=== PATIENT | female | born 1955 | race Caucasian/White ===

== ENCOUNTER 2017-05-25 22:57 | Emergency (ER) | payer MEDICARE, OTHER ==
[~2017-05-25] VITALS: Ht 160 cm; Wt 90.7 kg
[~2017-05-25 22:57] MED LIST: ACEBUTCAFT PO; ALBU3IS INH; ALBU90OI6; ALBU90OI61 INH; ALPR.5; ALPR.5 PO; AMIT50 PO; AMIT75 PO; AMLO5 PO; ASPI325 PO; ATOR80 PO; Aspirin EC81 MG PO; BENTYL10 MG PO; BISA10S PR; BUPR100 PO; BUSP10 PO; Bystolic20 MG PO; CALGLU500; CARI350 PO; CEREFOLIN NAC PO; CHOL10002 PO; CLON1 PO; CODBUTACEC; CODBUTACEC PO; CYCL10 PO; Catapres0.1 MG PO; DIAZ10 PO; DULO30 PO; EPIN.3I; ESTR2 VAG; FEXO180 PO; FLORICET PO; FLUSAL1005; FLUSAL2505 INH; FLUT.05NI; FURO20 PO; HYDACE5; HYDACE5 PO; HYDCHL12.5 PO; HYDCHL25; HYDMOR2 PO; HYDMOR4 PO; HYDMOR8 PO; HYDPAM50 PO; HYDSUL200 PO; LANS30EC; LEVO750 PO; LIDO2L TOP; LISI20 PO; LISI5 PO; LORA.5 PO; LORA1 PO; LORA2 PO; METF500; METF500 PO; METH10 PO; METH5; METO50 PO; METO50ER PO; METR250; MORPHINE PUMP; MULVITB&C PO; Maxalt10 MG; Maxalt10 MG PO; NAPR500 PO; Norco 5-325 Ta1 EACH PO; OMEP20ER PO; OMEP40CA12 PO; ONDA4 PO; ONDA4ODT; ONDA4ODT MM; ONDA8 PO; OPANA ER10 MG PO; OPANA PO; OXYACE5T PO; PANT40; PHENTERMINE PO; PREG200 PO; PROM25 PO; PROM25S PR; PROZAC20 MG PO; Pepcid40 MG PO; Percocet 5-3251 EACH PO; Pravachol40 MG PO; Protonix40 MG PO; Pyridium100 MG PO; QUET200 PO; ROPI1 PO; RXCYCL10 PO; RXONDA4ODT MM; RXPROM25S PR; SENN187 PO; SIMV10 PO; STARLIX; SULFAMETHOXAZOLE PO; SULTRISS PO; TEMA15 PO; TEMA7.5 PO; TRAZ100 PO; TRILYTE; TRIMETHOPRIM PO; VESICARE PO; Ventolin Soln3 ML; Vistaril50 MG PO; Xanax0.5 MG PO; ZELNORM; ZOCOR; Zithromax250 MG PO; Zofran Odt4 MG SL; Zofran4 MG PO; [UNRECOGNIZED DRUG - OTHER]; [UNRECOGNIZED DRUG - OTHER]
[2017-05-25 23:59] LABS: BASOPHILS ABSOLUTE AUTO 0.06 K/mm3 (0.00-0.23); BASOPHILS PERCENT AUTO 1 % (0-2); EOSINOPHILS ABSOLUTE AUTO 0.03 K/mm3 (0.00-0.68); EOSINOPHILS PERCENT AUTO 0 % (0-6); Hemoglobin 13.6 g/dL (11.5-16.0); IMMATURE GRAN ABSOLUTE AUTO 0.02 K/mm3 (0.00-0.10); IMMATURE GRAN PERCENT AUTO 0 % (0-1); LYMPHOCYTES ABSOLUTE AUTO 0.92 K/mm3 (0.84-5.20); LYMPHOCYTES PERCENT AUTO 10 % (21-46); MONOCYTES ABSOLUTE AUTO 0.49 K/mm3 (0.16-1.47); MONOCYTES PERCENT AUTO 5 % (4-13); Mean Corpuscular HGB Conc 31.6 g/dL (31.5-36.5); Mean Corpuscular Volume 89 fL (80-100); Mean Platelet Volume 10.1 fL (9.1-12.4); NEUTROPHILS ABSOLUTE AUTO 7.72 K/mm3 (1.96-9.15); NEUTROPHILS PERCENT AUTO 84 % (41-73); Platelet Count 308 K/mm3 (150-400); RDW Coefficient Variation 14.9 % (11.7-14.2); RDW Standard Deviation 48.4 fL (35.1-46.3); Red Blood Cell Count 4.85 M/mm3 (3.80-5.20); White Blood Cell Count 9.24 K/mm3 (4.00-11.30)
[2017-05-26 00:05] LABS: Alanine Aminotransfer (ALT/SGP 18 U/L (12-78); Albumin, Blood 3.9 g/dL (3.4-5.0); Albumin/Globulin Ratio 1.1 (0.8-1.8); Alk Phos 117 U/L (50-136); Anion Gap 8 mmol/L (6-16); Aspartate Aminotrans (AST/SGOT 15 U/L (12-37); Bilirubin, Total 0.3 mg/dL (0.1-1.0); Blood Urea Nitrogen 10 mg/dL (8-24); Bun/Creatinine Ratio 12.9 (12.0-20.0); CO2, Blood 22 mmol/L (21-32); Calcium, Blood 9.8 mg/dL (8.5-10.1); Chloride, Blood 111 mmol/L (98-108); Creatinine, Blood 0.77 mg/dL (0.40-1.00); Globulin, Blood 3.6 g/dL (2.2-4.0); Glomerular Filtration Rate >60 (60-); Glucose, Blood 141 mg/dL (70-99); Potassium, Blood 3.3 mmol/L (3.5-5.5); Sodium, Blood 141 mmol/L (136-145); Total Protein, Blood 7.5 g/dL (6.4-8.2)
[2017-05-26] MEDS ORDERED: PROM25 PO (06:37)
[2018-01-30] MEDS ORDERED: AMLO10 PO (03:48)
[2018-02-01] MEDS ORDERED: CARV25 PO (13:07)
[2018-03-24] MEDS ORDERED: DICLOFENAC SOD100 G1 TOP (16:01)
[2018-03-24] MEDS ORDERED: OXYC10TA19 PO (16:01)
[2018-03-24] MEDS ORDERED: OXYMORPHONE HCL5 MG PO (16:01)
== END 2017-05-26 00:45 | disposition home or self-care (01) ==
LOC: ER 22:57
PROVIDERS: Emergency Medicine
DX: R51 Headache (principal); R11.2 Nausea with vomiting, unspecified; E11.9 Type 2 diabetes mellitus without complications; J45.909 Unspecified asthma, uncomplicated; Z88.0 Allergy status to penicillin; Z88.8 Allergy status to other drugs, medicaments and biological substances; Z88.1 Allergy status to other antibiotic agents; Z88.5 Allergy status to narcotic agent; Z88.6 Allergy status to analgesic agent; Z91.030 Bee allergy status; Z79.899 Other long term (current) drug therapy; Z79.82 Long term (current) use of aspirin
CPT/HCPCS: 36415; 80053; 83690; 85025; 96361; 96374; 96375; 99284; J1100; J1200; J1630; J2060; J7030

== ENCOUNTER 2017-05-26 04:44 | Emergency (ER) | payer MEDICARE, OTHER ==
[~2017-05-26] VITALS: Ht 160 cm; Wt 90.7 kg
[2017-05-26] MEDS ORDERED: PROM25 PO (06:37)
[2018-01-30] MEDS ORDERED: AMLO10 PO (03:48)
[2018-02-01] MEDS ORDERED: CARV25 PO (13:07)
[2018-03-24] MEDS ORDERED: OXYMORPHONE HCL5 MG PO (16:01)
[2018-03-24] MEDS ORDERED: OXYC10TA19 PO (16:01)
[2018-03-24] MEDS ORDERED: DICLOFENAC SOD100 G1 TOP (16:01)
== END 2017-05-26 06:47 | disposition home or self-care (01) ==
LOC: ER 04:44
DX: R11.2 Nausea with vomiting, unspecified (principal); Z87.891 Personal history of nicotine dependence; E11.43 Type 2 diabetes mellitus with diabetic autonomic (poly)neuropathy; K31.84 Gastroparesis; J45.909 Unspecified asthma, uncomplicated; Z88.0 Allergy status to penicillin; Z88.1 Allergy status to other antibiotic agents; Z91.030 Bee allergy status; Z88.6 Allergy status to analgesic agent; Z88.5 Allergy status to narcotic agent; Z79.899 Other long term (current) drug therapy; Z79.82 Long term (current) use of aspirin
CPT/HCPCS: 99282

== ENCOUNTER 2017-06-06 11:54 | Emergency (ER) | payer MEDICARE, OTHER ==
[~2017-06-06] VITALS: Ht 160 cm; Wt 90.7 kg
[2017-06-06] MEDS ORDERED: Ultram50 MG PO (13:44)
[2018-01-30] MEDS ORDERED: AMLO10 PO (03:48)
[2018-02-01] MEDS ORDERED: CARV25 PO (13:07)
[2018-03-24] MEDS ORDERED: OXYC10TA19 PO (16:01)
[2018-03-24] MEDS ORDERED: DICLOFENAC SOD100 G1 TOP (16:01)
[2018-03-24] MEDS ORDERED: OXYMORPHONE HCL5 MG PO (16:01)
== END 2017-06-06 13:55 | disposition home or self-care (01) ==
LOC: ER 11:54
DX: M25.551 Pain in right hip (principal); Z88.0 Allergy status to penicillin; Z88.8 Allergy status to other drugs, medicaments and biological substances; Z88.5 Allergy status to narcotic agent; Z88.6 Allergy status to analgesic agent; Z91.030 Bee allergy status; Z79.899 Other long term (current) drug therapy; E11.9 Type 2 diabetes mellitus without complications; J45.909 Unspecified asthma, uncomplicated; W19.XXXA Unspecified fall, initial encounter; Z79.82 Long term (current) use of aspirin; Z87.891 Personal history of nicotine dependence
CPT/HCPCS: 73502; 99283

== ENCOUNTER 2017-11-03 11:33 | Emergency (ER) | payer MEDICARE, OTHER ==
[~2017-11-03] VITALS: Ht 160 cm; Wt 90.7 kg
[~2017-11-03 11:33] MED LIST changes: +Ultram50 MG PO
[2017-11-03 13:14] LABS: BASOPHILS ABSOLUTE AUTO 0.06 K/mm3 (0.00-0.23); BASOPHILS PERCENT AUTO 1 % (0-2); EOSINOPHILS ABSOLUTE AUTO 0.02 K/mm3 (0.00-0.68); EOSINOPHILS PERCENT AUTO 0 % (0-6); Hematocrit 41.4 % (33.0-51.0); Hemoglobin 13.3 g/dL (11.5-16.0); IMMATURE GRAN ABSOLUTE AUTO 0.03 K/mm3 (0.00-0.10); IMMATURE GRAN PERCENT AUTO 0 % (0-1); LYMPHOCYTES ABSOLUTE AUTO 1.04 K/mm3 (0.84-5.20); LYMPHOCYTES PERCENT AUTO 10 % (21-46); MONOCYTES ABSOLUTE AUTO 0.71 K/mm3 (0.16-1.47); MONOCYTES PERCENT AUTO 7 % (4-13); Mean Corpuscular HGB 28.9 pg (26.0-34.0); Mean Corpuscular HGB Conc 32.1 g/dL (31.5-36.5); Mean Corpuscular Volume 90 fL (80-100); Mean Platelet Volume 9.8 fL (9.1-12.4); NEUTROPHILS ABSOLUTE AUTO 8.75 K/mm3 (1.96-9.15); NEUTROPHILS PERCENT AUTO 82 % (41-73); Platelet Count 325 K/mm3 (150-400); RDW Coefficient Variation 13.8 % (11.7-14.2); RDW Standard Deviation 45.7 fL (35.1-46.3); Red Blood Cell Count 4.61 M/mm3 (3.80-5.20); White Blood Cell Count 10.61 K/mm3 (4.00-11.30)
[2017-11-03 14:15] LABS: Alanine Aminotransfer (ALT/SGP 20 U/L (12-78); Albumin, Blood 3.8 g/dL (3.4-5.0); Alk Phos 113 U/L (50-136); Anion Gap 10 mmol/L (6-16); Aspartate Aminotrans (AST/SGOT 19 U/L (12-37); Bilirubin, Total 0.4 mg/dL (0.1-1.0); Blood Urea Nitrogen 12 mg/dL (8-24); Bun/Creatinine Ratio 14.8 (12.0-20.0); CO2, Blood 24 mmol/L (21-32); Calcium, Blood 10.2 mg/dL (8.5-10.1); Chloride, Blood 106 mmol/L (98-108); Creatinine, Blood 0.81 mg/dL (0.40-1.00); Globulin, Blood 3.7 g/dL (2.2-4.0); Glomerular Filtration Rate >60 (60-); Glucose, Blood 99 mg/dL (70-99); Potassium, Blood 3.1 mmol/L (3.5-5.5); Sodium, Blood 140 mmol/L (136-145); Total Protein, Blood 7.5 g/dL (6.4-8.2)
[2017-11-03] MEDS ORDERED: Tigan300 MG PO (14:28)
== END 2017-11-03 15:40 | disposition home or self-care (01) ==
LOC: ER 11:33
PROVIDERS: Physician Assistant
DX: R11.2 Nausea with vomiting, unspecified (principal); E11.9 Type 2 diabetes mellitus without complications; J45.909 Unspecified asthma, uncomplicated; Z88.0 Allergy status to penicillin; Z88.8 Allergy status to other drugs, medicaments and biological substances; Z91.030 Bee allergy status; Z88.1 Allergy status to other antibiotic agents; Z88.5 Allergy status to narcotic agent; Z79.899 Other long term (current) drug therapy; Z79.82 Long term (current) use of aspirin; Z87.891 Personal history of nicotine dependence
CPT/HCPCS: 36415; 71046; 80053; 83690; 85025; 96374; 96375; 99284-25; J1200; J1630; J2405

== ENCOUNTER 2017-11-11 03:10 | Observation (INO) | payer MEDICARE, OTHER ==
[~2017-11-11] VITALS: Ht 160 cm; Wt 93.3 kg
[~2017-11-11 03:10] MED LIST changes: +Tigan300 MG PO
[2017-11-11] MEDS ORDERED: OXYMORPHONE HCL5 MG PO (03:35)
[2017-11-11] MEDS ORDERED: ZOLP5 PO (03:36)
[2017-11-11] MEDS ORDERED: TRAM50 PO (03:36)
[2017-11-11 03:43] LABS: Source, Urine Clean Catch
[2017-11-11 03:45] LABS: Bilirubin, Urine Neg (Neg); Blood, Urine 1+ (Neg); Glucose Qualitative, Urine Neg (Neg); Ketones, Urine Neg (Neg); Leukocyte Esterase, Urine 1+ (Neg); Nitrite, Urine Neg (Neg); Protein, Urine 1+ (Neg); Specific Gravity, Urine 1.025 (1.003-1.022); Urobilinogen, Urine NORM (Normal)
[2017-11-11 03:46] LABS: Appearance, Urine Clear (Clear); Color, Urine Yellow (P-Yellow)
[2017-11-11 03:50] LABS: Bacteria Many /hpf; Red Blood Cells, Urine 0-2 /hpf (0-2); Squamous Epithelial Cells Many /hpf (Few)
[2017-11-11 04:21] LABS: BASOPHILS PERCENT AUTO 1 % (0-2); EOSINOPHILS ABSOLUTE AUTO 0.26 K/mm3 (0.00-0.68); EOSINOPHILS PERCENT AUTO 2 % (0-6); Hematocrit 34.9 % (33.0-51.0); Hemoglobin 11.2 g/dL (11.5-16.0); IMMATURE GRAN ABSOLUTE AUTO 0.05 K/mm3 (0.00-0.10); IMMATURE GRAN PERCENT AUTO 1 % (0-1); LYMPHOCYTES ABSOLUTE AUTO 2.22 K/mm3 (0.84-5.20); LYMPHOCYTES PERCENT AUTO 21 % (21-46); MONOCYTES PERCENT AUTO 11 % (4-13); Mean Corpuscular HGB 28.9 pg (26.0-34.0); Mean Corpuscular HGB Conc 32.1 g/dL (31.5-36.5); Mean Corpuscular Volume 90 fL (80-100); NEUTROPHILS ABSOLUTE AUTO 6.81 K/mm3 (1.96-9.15); NEUTROPHILS PERCENT AUTO 64 % (41-73); RDW Coefficient Variation 14.6 % (11.7-14.2); RDW Standard Deviation 47.8 fL (35.1-46.3); Red Blood Cell Count 3.87 M/mm3 (3.80-5.20); White Blood Cell Count 10.64 K/mm3 (4.00-11.30)
[2017-11-11 04:23] LABS: Mean Platelet Volume 11.2 fL (9.1-12.4); Platelet Count 201 K/mm3 (150-400)
[2017-11-11 04:37] LABS: Alanine Aminotransfer (ALT/SGP 18 U/L (12-78); Albumin, Blood 3.1 g/dL (3.4-5.0); Albumin/Globulin Ratio 0.9 (0.8-1.8); Alk Phos 110 U/L (50-136); Anion Gap 8 mmol/L (6-16); Aspartate Aminotrans (AST/SGOT 19 U/L (12-37); Bilirubin, Total 0.2 mg/dL (0.1-1.0); Blood Urea Nitrogen 17 mg/dL (8-24); Bun/Creatinine Ratio 20.6 (12.0-20.0); CO2, Blood 27 mmol/L (21-32); Calcium, Blood 9.4 mg/dL (8.5-10.1); Chloride, Blood 102 mmol/L (98-108); Creatinine, Blood 0.83 mg/dL (0.40-1.00); Globulin, Blood 3.4 g/dL (2.2-4.0); Glomerular Filtration Rate >60 (60-); Glucose, Blood 87 mg/dL (70-99); Potassium, Blood 3.5 mmol/L (3.5-5.5); Sodium, Blood 137 mmol/L (136-145); Total Protein, Blood 6.5 g/dL (6.4-8.2); Troponin I 0.188 ng/mL (0.000-0.040)
[2017-11-11] MEDS ORDERED: OXYMORPHONE HCL10 MG PO (07:37)
[2017-11-11] MEDS ORDERED: ROPI2 PO (07:38)
[2017-11-11 12:59] LABS: Troponin I 0.164 ng/mL (0.000-0.040)
[2017-11-11 20:21] LABS: Troponin I 0.129 ng/mL (0.000-0.040)
[2017-11-12 06:03] LABS: Hematocrit 36.4 % (33.0-51.0); Hemoglobin 11.3 g/dL (11.5-16.0); Mean Corpuscular Volume 90 fL (80-100); Mean Platelet Volume 10.2 fL (9.1-12.4); Platelet Count 266 K/mm3 (150-400); RDW Coefficient Variation 14.8 % (11.7-14.2); RDW Standard Deviation 48.9 fL (35.1-46.3); Red Blood Cell Count 4.03 M/mm3 (3.80-5.20); White Blood Cell Count 6.29 K/mm3 (4.00-11.30)
[2017-11-12 06:20] LABS: Alanine Aminotransfer (ALT/SGP 18 U/L (12-78); Albumin, Blood 2.8 g/dL (3.4-5.0); Albumin/Globulin Ratio 0.9 (0.8-1.8); Alk Phos 88 U/L (50-136); Anion Gap 7 mmol/L (6-16); Aspartate Aminotrans (AST/SGOT 17 U/L (12-37); Bilirubin, Total 0.2 mg/dL (0.1-1.0); Blood Urea Nitrogen 9 mg/dL (8-24); CO2, Blood 28 mmol/L (21-32); Calcium, Blood 9.5 mg/dL (8.5-10.1); Chloride, Blood 111 mmol/L (98-108); Creatinine, Blood 0.75 mg/dL (0.40-1.00); Globulin, Blood 3.1 g/dL (2.2-4.0); Glomerular Filtration Rate >60 (60-); Glucose, Blood 87 mg/dL (70-99); Potassium, Blood 4.2 mmol/L (3.5-5.5); Sodium, Blood 146 mmol/L (136-145); Total Protein, Blood 5.9 g/dL (6.4-8.2)
[2017-11-12] MEDS ORDERED: DOCU100 PO (18:23)
[2017-11-12] MEDS ORDERED: PANT40 PO (18:24)
[2017-11-12] MEDS ORDERED: MIRALAX17 GM PO (18:24)
== END 2017-11-12 18:50 | disposition home or self-care (01) ==
LOC: ER 03:10 → PCU 03:11 → ER 05:44 → PCU 06:55
PROVIDERS: Emergency Medicine; Internal Medicine
DX: K59.01 Slow transit constipation (principal); I42.1 Obstructive hypertrophic cardiomyopathy; F11.20 Opioid dependence, uncomplicated; K51.90 Ulcerative colitis, unspecified, without complications; R07.89 Other chest pain; I10 Essential (primary) hypertension; R10.13 Epigastric pain; K21.9 Gastro-esophageal reflux disease without esophagitis; R79.89 Other specified abnormal findings of blood chemistry; E11.65 Type 2 diabetes mellitus with hyperglycemia; J44.9 Chronic obstructive pulmonary disease, unspecified; I25.10 Atherosclerotic heart disease of native coronary artery without angina pectoris; E78.5 Hyperlipidemia, unspecified; G89.4 Chronic pain syndrome; I73.9 Peripheral vascular disease, unspecified; Z96.89 Presence of other specified functional implants; F41.8 Other specified anxiety disorders; G47.33 Obstructive sleep apnea (adult) (pediatric); Z91.19 Patient's noncompliance with other medical treatment and regimen; F32.9 Major depressive disorder, single episode, unspecified; E66.9 Obesity, unspecified; Z68.34 Body mass index [BMI] 34.0-34.9, adult; I25.2 Old myocardial infarction; Z87.11 Personal history of peptic ulcer disease; Z79.899 Other long term (current) drug therapy; Z79.82 Long term (current) use of aspirin
CPT/HCPCS: 36415; 71046; 74176; 80053; 81001; 82550; 82947; 83690; 84484; 85025; 85027; 93005; 93010; 93306; 96372; 96374; 96375; 96376; 99285-25; G0378; J1650; J2060; J2405; J3010; J7030

== ENCOUNTER → 2018-04-16 | Outpatient (CLI) | payer MEDICARE, OTHER ==
[~2018-04-16] MED LIST changes: +AMLO10 PO; +CARV25 PO; +DICLOFENAC SOD100 G1 TOP; +DOCU100 PO; +MIRALAX17 GM PO; +OXYC10TA19 PO; +OXYMORPHONE HCL10 MG PO; +OXYMORPHONE HCL5 MG PO; +PANT40 PO; +ROPI2 PO; +TRAM50 PO; +ZOLP5 PO
[2018-04-16 18:17] LABS: Bilirubin, Urine Neg (Neg); Blood, Urine Neg (Neg); Color, Urine Yellow (P-Yellow); Glucose Qualitative, Urine Neg (Neg); Ketones, Urine Neg (Neg); Leukocyte Esterase, Urine Neg (Neg); Nitrite, Urine Neg (Neg); Protein, Urine 1+ (Neg); Urobilinogen, Urine NORM (Normal)
[2018-04-16 18:35] LABS: Appearance, Urine Hazy (Clear); Bacteria Many /hpf; Mucus Light (0-Heavy); Red Blood Cells, Urine 0-2 /hpf (0-2); Squamous Epithelial Cells Few /hpf (Few); White Blood Cells, Urine 0-2 /hpf (0-5)
== END | disposition home or self-care (01) ==
LOC: LAB SHORT 14:35 → LAB 14:35
PROVIDERS: Internal Medicine Nephrology
DX: N39.0 Urinary tract infection, site not specified (principal)
CPT/HCPCS: 81001; 87086

== ENCOUNTER 2018-07-01 16:27 | Emergency (ER) | payer MEDICARE, OTHER ==
[~2018-07-01] VITALS: Ht 154.9 cm; Wt 86.2 kg
[2018-07-01 16:56] LABS: BASOPHILS ABSOLUTE AUTO 0.08 K/mm3 (0.00-0.23); BASOPHILS PERCENT AUTO 1 % (0-2); EOSINOPHILS ABSOLUTE AUTO 0.17 K/mm3 (0.00-0.68); EOSINOPHILS PERCENT AUTO 3 % (0-6); Hematocrit 36.6 % (33.0-51.0); IMMATURE GRAN ABSOLUTE AUTO 0.01 K/mm3 (0.00-0.10); IMMATURE GRAN PERCENT AUTO 0 % (0-1); LYMPHOCYTES ABSOLUTE AUTO 2.23 K/mm3 (0.84-5.20); LYMPHOCYTES PERCENT AUTO 34 % (21-46); MONOCYTES ABSOLUTE AUTO 0.86 K/mm3 (0.16-1.47); MONOCYTES PERCENT AUTO 13 % (4-13); Mean Corpuscular HGB 27.8 pg (26.0-34.0); Mean Corpuscular HGB Conc 30.1 g/dL (31.5-36.5); Mean Corpuscular Volume 93 fL (80-100); Mean Platelet Volume 10.7 fL (9.1-12.4); NEUTROPHILS ABSOLUTE AUTO 3.28 K/mm3 (1.96-9.15); NEUTROPHILS PERCENT AUTO 49 % (41-73); Platelet Count 236 K/mm3 (150-400); RDW Coefficient Variation 14.8 % (11.7-14.2); Red Blood Cell Count 3.95 M/mm3 (3.80-5.20); White Blood Cell Count 6.63 K/mm3 (4.00-11.30)
[2018-07-01 17:21] LABS: Alanine Aminotransfer (ALT/SGP 17 U/L (12-78); Albumin, Blood 3.2 g/dL (3.4-5.0); Albumin/Globulin Ratio 1.1 (0.8-1.8); Alk Phos 93 U/L (50-136); Anion Gap 2 mmol/L (6-16); Aspartate Aminotrans (AST/SGOT 16 U/L (12-37); Bilirubin, Total 0.3 mg/dL (0.1-1.0); Blood Urea Nitrogen 24 mg/dL (8-24); Bun/Creatinine Ratio 25.6 (12.0-20.0); CO2, Blood 28 mmol/L (21-32); Calcium, Blood 9.2 mg/dL (8.5-10.1); Chloride, Blood 111 mmol/L (98-108); Creatinine, Blood 0.94 mg/dL (0.40-1.00); Globulin, Blood 2.8 g/dL (2.2-4.0); Glomerular Filtration Rate >60 (60-); Glucose, Blood 90 mg/dL (70-99); Potassium, Blood 4.3 mmol/L (3.5-5.5); Sodium, Blood 141 mmol/L (136-145)
[2018-07-01 17:26] LABS: Ethanol (Alcohol), Blood, Med <3 mg/dL
[2018-07-01] MEDS ORDERED: NARCAN4 MG (21:19)
== END 2018-07-01 22:02 | disposition home or self-care (01) ==
LOC: ER 16:27
PROVIDERS: Emergency Medicine
DX: R40.4 Transient alteration of awareness (principal); F11.90 Opioid use, unspecified, uncomplicated; I10 Essential (primary) hypertension; F41.9 Anxiety disorder, unspecified; E11.9 Type 2 diabetes mellitus without complications; J45.909 Unspecified asthma, uncomplicated; Z88.0 Allergy status to penicillin; Z88.8 Allergy status to other drugs, medicaments and biological substances; Z88.6 Allergy status to analgesic agent; Z88.5 Allergy status to narcotic agent; Z88.1 Allergy status to other antibiotic agents; Z91.030 Bee allergy status; Z79.899 Other long term (current) drug therapy; Z79.82 Long term (current) use of aspirin
CPT/HCPCS: 80053; 85025; 93005; 93010; 99285-25; G0480

== ENCOUNTER 2018-10-10 09:01 | Day surgery (SDC) | payer MEDICARE, OTHER ==
[~2018-10-10 09:01] MED LIST changes: -CARV25 PO; -DULO30 PO; -HYDSUL200 PO; +NARCAN4 MG; -OXYC10TA19 PO; -PREG200 PO
[2018-10-10 10:56] LABS: Source, Urine Clean Catch
[2018-10-10 12:12] LABS: Appearance, Urine Clear (Clear); Bilirubin, Urine Neg (Neg); Blood, Urine Neg (Neg); Color, Urine Yellow (P-Yellow); Glucose Qualitative, Urine Neg (Neg); Ketones, Urine Neg (Neg); Leukocyte Esterase, Urine 1+ (Neg); Nitrite, Urine Neg (Neg); Protein, Urine Neg (Neg); Specific Gravity, Urine 1.025 (1.003-1.022); Urobilinogen, Urine NORM (Normal)
[2018-10-10 12:40] LABS: Bacteria Rare /hpf; Calcium Oxalate Crystals Mod /hpf; Red Blood Cells, Urine 0-2 /hpf (0-2); Squamous Epithelial Cells Few /hpf (Few)
[2019-02-02] MEDS ORDERED: Ropinirole HCl1 MG PO (10:47)
[2019-02-02] MEDS ORDERED: OXYB5ER PO (10:48)
[2019-02-02] MEDS ORDERED: Hydrocodone-Ap1 EA20 PO (10:48)
[2019-02-02] MEDS ORDERED: ESTRADIOL PO (10:49)
[2019-02-02] MEDS ORDERED: VITAMIN D31000 UNI2 PO (10:49)
[2019-02-02] MEDS ORDERED: Catapres-Tts 11 EACH PO (10:50)
[2019-02-02] MEDS ORDERED: OXYMORPHONE HCL10 MG PO (10:50)
[2019-02-02] MEDS ORDERED: BUSP10 PO (10:53)
[2019-02-02] MEDS ORDERED: DILT120ERA PO (13:20)
== END 2018-10-10 22:55 | disposition home or self-care (01) ==
LOC: RAD 09:01
PROVIDERS: Obstetrics & Gynecology Female Pelvic Medicine and Reconstructive Surgery
DX: M24.851 Other specific joint derangements of right hip, not elsewhere classified (principal); N39.0 Urinary tract infection, site not specified; I10 Essential (primary) hypertension; E78.5 Hyperlipidemia, unspecified; Z88.0 Allergy status to penicillin; Z88.6 Allergy status to analgesic agent; Z88.8 Allergy status to other drugs, medicaments and biological substances; Z87.891 Personal history of nicotine dependence
CPT/HCPCS: 20610; 73722; 77002; 81001; 87077; 87086; 87186; A9577; Q9967

== ENCOUNTER 2018-11-04 20:42 | Emergency (ER) | payer MEDICARE, OTHER ==
[~2018-11-04] VITALS: Ht 160 cm; Wt 90.7 kg
[2018-11-04] MEDS ORDERED: HYDHCL25 PO (21:10)
[2019-02-02] MEDS ORDERED: Ropinirole HCl1 MG PO (10:47)
[2019-02-02] MEDS ORDERED: OXYB5ER PO (10:48)
[2019-02-02] MEDS ORDERED: Hydrocodone-Ap1 EA20 PO (10:48)
[2019-02-02] MEDS ORDERED: ESTRADIOL PO (10:49)
[2019-02-02] MEDS ORDERED: VITAMIN D31000 UNI2 PO (10:49)
[2019-02-02] MEDS ORDERED: Catapres-Tts 11 EACH PO (10:50)
[2019-02-02] MEDS ORDERED: OXYMORPHONE HCL10 MG PO (10:50)
[2019-02-02] MEDS ORDERED: BUSP10 PO (10:53)
[2019-02-02] MEDS ORDERED: DILT120ERA PO (13:20)
== END 2018-11-04 21:27 | disposition home or self-care (01) ==
LOC: ER 20:42
DX: G89.29 Other chronic pain (principal); M25.551 Pain in right hip; Z76.5 Malingerer [conscious simulation]; Z88.0 Allergy status to penicillin; Z88.8 Allergy status to other drugs, medicaments and biological substances; Z88.1 Allergy status to other antibiotic agents; Z88.5 Allergy status to narcotic agent; Z91.030 Bee allergy status; Z79.899 Other long term (current) drug therapy; Z79.82 Long term (current) use of aspirin; E11.43 Type 2 diabetes mellitus with diabetic autonomic (poly)neuropathy; K31.84 Gastroparesis; I10 Essential (primary) hypertension; Z87.891 Personal history of nicotine dependence
CPT/HCPCS: 99283

== ENCOUNTER 2018-12-19 13:17 | Observation (INO) | payer MEDICARE, OTHER ==
[~2018-12-19] VITALS: Ht 160 cm; Wt 87.7 kg
[~2018-12-19 13:17] MED LIST changes: +HYDHCL25 PO
[2018-12-19 14:09] LABS: BASOPHILS ABSOLUTE AUTO 0.08 K/mm3 (0.00-0.23); BASOPHILS PERCENT AUTO 1 % (0-2); EOSINOPHILS ABSOLUTE AUTO 0.02 K/mm3 (0.00-0.68); EOSINOPHILS PERCENT AUTO 0 % (0-6); Hematocrit 52.7 % (33.0-51.0); Hemoglobin 16.1 g/dL (11.5-16.0); IMMATURE GRAN ABSOLUTE AUTO 0.04 K/mm3 (0.00-0.10); IMMATURE GRAN PERCENT AUTO 0 % (0-1); LYMPHOCYTES ABSOLUTE AUTO 1.36 K/mm3 (0.84-5.20); LYMPHOCYTES PERCENT AUTO 13 % (21-46); MONOCYTES ABSOLUTE AUTO 0.73 K/mm3 (0.16-1.47); MONOCYTES PERCENT AUTO 7 % (4-13); Mean Corpuscular HGB 28.8 pg (26.0-34.0); Mean Corpuscular HGB Conc 30.6 g/dL (31.5-36.5); Mean Corpuscular Volume 94 fL (80-100); Mean Platelet Volume 12.7 fL (9.1-12.4); NEUTROPHILS ABSOLUTE AUTO 8.14 K/mm3 (1.96-9.15); NEUTROPHILS PERCENT AUTO 79 % (41-73); Platelet Count 206 K/mm3 (150-400); RDW Coefficient Variation 17.3 % (11.7-14.2); RDW Standard Deviation 59.2 fL (35.1-46.3); White Blood Cell Count 10.37 K/mm3 (4.00-11.30)
[2018-12-19 14:30] LABS: Alanine Aminotransfer (ALT/SGP 23 U/L (12-78); Albumin, Blood 3.8 g/dL (3.4-5.0); Alk Phos 124 U/L (50-136); Anion Gap 3 mmol/L (6-16); Aspartate Aminotrans (AST/SGOT 19 U/L (12-37); Bilirubin, Total 0.4 mg/dL (0.1-1.0); Blood Urea Nitrogen 22 mg/dL (8-24); Bun/Creatinine Ratio 34.4 (12.0-20.0); CO2, Blood 26 mmol/L (21-32); Calcium, Blood 10.7 mg/dL (8.5-10.1); Chloride, Blood 109 mmol/L (98-108); Creatinine, Blood 0.64 mg/dL (0.40-1.00); Globulin, Blood 3.7 g/dL (2.2-4.0); Glomerular Filtration Rate >60 (60-); Glucose, Blood 115 mg/dL (70-99); Potassium, Blood 3.9 mmol/L (3.5-5.5); Sodium, Blood 138 mmol/L (136-145); Total Protein, Blood 7.5 g/dL (6.4-8.2); Troponin I 0.056 ng/mL (0.000-0.040)
[2018-12-19] MEDS ORDERED: CLON.1 PO (16:28)
[2018-12-19] MEDS ORDERED: OXYMORPHONE HCL5 MG PO (16:30)
[2018-12-19] MEDS ORDERED: RIZATRIPTAN10 M1 PO (16:32)
[2018-12-19] MEDS ORDERED: DULO60 PO (16:34)
[2018-12-19] MEDS ORDERED: CARV25 PO (16:34)
[2018-12-19] MEDS ORDERED: PREG75 PO (16:46)
[2018-12-19] MEDS ORDERED: HYDSUL200 PO (16:46)
[2018-12-19] MEDS ORDERED: OXYC10TA19 PO (16:47)
[2018-12-19] MEDS ORDERED: Cyclobenzaprine5 MG PO (17:17)
[2018-12-19] MEDS ORDERED: HYDHCL25 PO (17:18)
[2018-12-20 05:14] LABS: Anion Gap 5 mmol/L (6-16); Blood Urea Nitrogen 21 mg/dL (8-24); Bun/Creatinine Ratio 27.5 (12.0-20.0); CO2, Blood 30 mmol/L (21-32); Calcium, Blood 10.2 mg/dL (8.5-10.1); Chloride, Blood 109 mmol/L (98-108); Creatinine, Blood 0.76 mg/dL (0.40-1.00); Glomerular Filtration Rate >60 (60-); Glucose, Blood 102 mg/dL (70-99); Potassium, Blood 3.8 mmol/L (3.5-5.5); Sodium, Blood 144 mmol/L (136-145)
--- NOTE | 2018-12-20 06:19 | NUR ---
SHIFT SUMMARY: CHRISTINA ARRIVED VIA GURNEY TO THE FLOOR AT THE BEGINNING OF THE SHIFT. SHE WAS ADMITTED FOR NAUSEA AND HTN URGENCY. SHE TRANSFERRED SELF TO THE BED INDEPENDTANLY. BP ON ARRIVAL TO THE FLOOR WAS 197/132. SHE COMPLAINED OF A HEADACHE AND ABDOMINAL PAIN. RECHECKS OF HER BLOOD PRESSURE AFTER ADMINISTERING MEDS PER EMAR ONLY BROUGHT IT DOWN TO 171/119. STILL WAITED FOR IT TO COME DOWN FURTHER PAIN MEDS WERE ALSO GIVEN. RECHECK OF HER BP WAS 116/74. SHE WAS ABLE TO STATE SHE FELT BETTER AND PAIN WAS BETTER MANAGED. SHE SLEPT WELL THROUGOUT THE NIGHT AND WOKE WHEN NEEDED. CALL LIGHT REMAINED WITH IN REACH AND USED APPROPRIATLY. WILL REPORT TO DAY SHIFT RN.
--- NOTE | 2018-12-20 09:11 | NUR ---
Physician notified Dr. Garza notified of patient's am BP (110/49) and AR (66). Blood pressure meds held for now. Physician will follow-up.
--- NOTE | 2018-12-20 10:58 | NUR ---
Per Clarissa, media monitor, Tele reads Sinus 70
--- NOTE | 2018-12-20 11:57 | NUR ---
Physician notified RE: patient's wishes to change CODE status. Dr. Garza changed code status to FULL code. DNR band removed.
--- NOTE | 2018-12-20 12:34 | NUR ---
Physician notified RE: noon blood sugar of 79. 120ml apple juice given and blood sugar rechecked, found to be 81. Another 120ml apple juice given and blood sugar rechecked, found to be 105. Patient alert resting in bed.
--- NOTE | 2018-12-20 13:32 | NUR ---
Echocardiogram completed.
--- NOTE | 2018-12-20 17:21 | NUR ---
Shift Summary A/O x 4, very conversational, pleasant, and cooperative with care. Independent in room and able to make needs known. Medicated for hip pain x 1 per EMAR. No c/o N/V. Tele in place @ 70. Blood sugars have been between 79-105 this shift. Patient had stress test completed this afternoon. VSS.
[2018-12-21 04:41] LABS: BASOPHILS ABSOLUTE AUTO 0.07 K/mm3 (0.00-0.23); BASOPHILS PERCENT AUTO 1 % (0-2); EOSINOPHILS ABSOLUTE AUTO 0.13 K/mm3 (0.00-0.68); EOSINOPHILS PERCENT AUTO 2 % (0-6); Hematocrit 39.9 % (33.0-51.0); Hemoglobin 12.4 g/dL (11.5-16.0); IMMATURE GRAN ABSOLUTE AUTO 0.02 K/mm3 (0.00-0.10); IMMATURE GRAN PERCENT AUTO 0 % (0-1); LYMPHOCYTES ABSOLUTE AUTO 2.35 K/mm3 (0.84-5.20); LYMPHOCYTES PERCENT AUTO 35 % (21-46); MONOCYTES ABSOLUTE AUTO 0.73 K/mm3 (0.16-1.47); MONOCYTES PERCENT AUTO 11 % (4-13); Mean Corpuscular HGB 27.8 pg (26.0-34.0); Mean Corpuscular HGB Conc 31.1 g/dL (31.5-36.5); Mean Corpuscular Volume 90 fL (80-100); Mean Platelet Volume 10.5 fL (9.1-12.4); NEUTROPHILS ABSOLUTE AUTO 3.45 K/mm3 (1.96-9.15); NEUTROPHILS PERCENT AUTO 51 % (41-73); Platelet Count 243 K/mm3 (150-400); RDW Standard Deviation 55.8 fL (35.1-46.3); Red Blood Cell Count 4.46 M/mm3 (3.80-5.20); White Blood Cell Count 6.75 K/mm3 (4.00-11.30)
[2018-12-21 04:56] LABS: Anion Gap 5 mmol/L (6-16); Blood Urea Nitrogen 24 mg/dL (8-24); Bun/Creatinine Ratio 31.3 (12.0-20.0); CO2, Blood 30 mmol/L (21-32); Calcium, Blood 9.7 mg/dL (8.5-10.1); Chloride, Blood 107 mmol/L (98-108); Creatinine, Blood 0.77 mg/dL (0.40-1.00); Glomerular Filtration Rate >60 (60-); Glucose, Blood 93 mg/dL (70-99); Potassium, Blood 4.1 mmol/L (3.5-5.5); Sodium, Blood 142 mmol/L (136-145)
--- NOTE | 2018-12-21 05:49 | NUR ---
SHIFT SUMMARY PT SLEPT FAIR DURING NIGHT, MEDICATED X 2 FOR PAIN. ALSO HAS AQUA K PAD TO RIGHT HIP FOR COMFORT. PT STATES SHE THINKS SHE HAS A BLOOD CLOT IN LUNG AND IS INQUIRING ABOUT A CT SCAN THAT WAS MENTIONED TO HER YESTERDAY. WILL CONTINUE TO MONITOR.
--- NOTE | 2018-12-21 11:05 | NUR ---
Dr. Partidatrate notified on whether to hold Coreg based on BP 124/86 HR 62. Received orders to give Coreg. Administered per EMAR.
--- NOTE | 2018-12-21 17:00 | NUR ---
Shift Summary A/Ox4. No acute changes this shift. Medicated for pain x 4 ranging aroung 7-9's and down to 4-5's. Medicated once for anxiety. Cooperative and pleasant t/o shift, able to make needs known. Tele: SR 62. VSS. Blood sugars have been stable. Patient has had one small BM 12/20/18 but has not had any more since given stimulant laxative around noon today. Will continue to monitor and report to oncoming RN.
--- NOTE | 2018-12-21 17:10 | NUR ---
Add-on Shift Summary Patient scheduled to have angio in the morning 12/22/18. Patient to be NPO after midnight.
[2018-12-22 04:43] LABS: BASOPHILS ABSOLUTE AUTO 0.09 K/mm3 (0.00-0.23); BASOPHILS PERCENT AUTO 1 % (0-2); EOSINOPHILS ABSOLUTE AUTO 0.12 K/mm3 (0.00-0.68); EOSINOPHILS PERCENT AUTO 2 % (0-6); Hematocrit 42.7 % (33.0-51.0); IMMATURE GRAN ABSOLUTE AUTO 0.02 K/mm3 (0.00-0.10); IMMATURE GRAN PERCENT AUTO 0 % (0-1); LYMPHOCYTES ABSOLUTE AUTO 2.25 K/mm3 (0.84-5.20); LYMPHOCYTES PERCENT AUTO 31 % (21-46); MONOCYTES ABSOLUTE AUTO 0.78 K/mm3 (0.16-1.47); MONOCYTES PERCENT AUTO 11 % (4-13); Mean Corpuscular HGB Conc 30.4 g/dL (31.5-36.5); Mean Corpuscular Volume 92 fL (80-100); Mean Platelet Volume 10.6 fL (9.1-12.4); NEUTROPHILS ABSOLUTE AUTO 3.93 K/mm3 (1.96-9.15); NEUTROPHILS PERCENT AUTO 55 % (41-73); Platelet Count 225 K/mm3 (150-400); RDW Coefficient Variation 16.9 % (11.7-14.2); Red Blood Cell Count 4.65 M/mm3 (3.80-5.20); White Blood Cell Count 7.19 K/mm3 (4.00-11.30)
[2018-12-22 05:23] LABS: Anion Gap 5 mmol/L (6-16); Blood Urea Nitrogen 25 mg/dL (8-24); Bun/Creatinine Ratio 37.7 (12.0-20.0); CHOL/HDL RATIO 3.4; CO2, Blood 28 mmol/L (21-32); Calcium, Blood 9.8 mg/dL (8.5-10.1); Chloride, Blood 108 mmol/L (98-108); Cholesterol 166 mg/dL (50-200); Creatinine, Blood 0.66 mg/dL (0.40-1.00); Glomerular Filtration Rate >60 (60-); Glucose, Blood 83 mg/dL (70-99); HDL Cholesterol 49 mg/dL (>39); Low Density Lipoprotein Chol 99 mg/dL (0-110); Potassium, Blood 4.6 mmol/L (3.5-5.5); Sodium, Blood 141 mmol/L (136-145); Triglycerides 91 mg/dL (30-160); Very Low Density Lipoprot Chol 18 mg/dL (6-32)
--- NOTE | 2018-12-22 06:20 | NUR ---
SHIFT SUMMARY PT A/O INDEPENDENT IN ROOM. C/O PAIN IN HIP AND MEDICATED PER EMAR. SHE WAS ABLE TO SLEEP T/O NIGHT. NPO AT MIDNIGHT. SOME ANXIETY ABOUT HER UPCOMING ANGIOGRAM. CALL LIGHT IN REACH.
--- NOTE | 2018-12-22 07:42 | NUR ---
Physician notified This RN inquired on whether to hold or give PO meds this morning. Per Dr. Garza, patient to receive PO meds.
--- NOTE | 2018-12-22 09:03 | NUR ---
Patient transferred to Manager Ui @ 0903 via w/c. Belongings were bagged up and sent with patient to cardiac cath lab technologist. Meds given per EMAR.
[2018-12-22 09:29] LABS: International Normalized Ratio 0.96; Prothrombin Time Results 10.2 Sec (9.7-11.5)
--- NOTE | 2018-12-22 10:25 | NUR ---
PT ARRIVED WITH RIGHT RADIAL TR BAND WITH WRIST BOARD TO RECOVERY ROOM. RIGHT RADIAL TR BAND SITE SOFT NON-TENDER WITH NO HEMATOMA AND NO PULSATILE BLEEDING. CALL LIGHT IN REACH.
--- NOTE | 2018-12-22 10:52 | NUR ---
PT BEING TRANSFERED TO U 2.
--- NOTE | 2018-12-22 11:33 | NUR ---
ASSUMED CARE PT TRANSFERRED TO UNIT FROM BOAT RIDE OPERATOR. PT HAD AN ANGIOGRAM WITH A RIGHT RADIAL SITE. TR BAND IN PLACE WITH 9CC OF AIR. NO SINGS OF HEMATOMA, BRUISING, OR BLEEDING. VS STABLE. NS INFUSING PER ORDERS. PT COMPLAINS OF CHRONIC PAIN IN HER RIGHT HIP/ GROIN AREA. WILL MEDICATE PER EMAR. PT ORIENTED TO ROOM AND EDUCATED ON RIGHT ARM RESTRICTIONS. DR. FRANKS COMES IN AND STATES PT TO DISCHARGE AFTER RECOVERED. WILL CONTIUE TO MONITOR CLOSELY.
[2018-12-22] MEDS ORDERED: ACET325 PO (15:52)
[2018-12-22] MEDS ORDERED: AMLO10 PO (15:56)
[2018-12-22] MEDS ORDERED: ASPI81CH PO (15:58)
[2018-12-22] MEDS ORDERED: BISA10S PO (16:00)
[2018-12-22] MEDS ORDERED: DOCU100 PO (16:01)
[2018-12-22] MEDS ORDERED: Prinivil10 MG PO (16:03)
[2018-12-22] MEDS ORDERED: NITR.4SL SL (16:04)
[2018-12-22] MEDS ORDERED: ONDA4ODT SL (16:07)
[2018-12-22] MEDS ORDERED: SENN187 PO (16:09)
[2018-12-22] MEDS ORDERED: ATOR40TA PO (16:12)
--- NOTE | 2018-12-22 17:36 | NUR ---
UPDATE 9CC OF AIR REMOVED FROM TR BAND AND TR BAND HAS BEEN REMOVED. TEGADERM IN PLACE. NO SIGNS OF BLEEDING, HEMATOMA FORMATION, OR BRUISING NOTED. DISCHARGE INSTRUCTIONS PROVIDED. PT EDUCATED ON NEW MEDICATIONS. ALL QUESTIONS ANSWERED. PT WAITING FOR HER RIDE.
[2019-02-02] MEDS ORDERED: Ropinirole HCl1 MG PO (10:47)
[2019-02-02] MEDS ORDERED: OXYB5ER PO (10:48)
[2019-02-02] MEDS ORDERED: Hydrocodone-Ap1 EA20 PO (10:48)
[2019-02-02] MEDS ORDERED: ESTRADIOL PO (10:49)
[2019-02-02] MEDS ORDERED: VITAMIN D31000 UNI2 PO (10:49)
[2019-02-02] MEDS ORDERED: OXYMORPHONE HCL10 MG PO (10:50)
[2019-02-02] MEDS ORDERED: Catapres-Tts 11 EACH PO (10:50)
[2019-02-02] MEDS ORDERED: BUSP10 PO (10:53)
[2019-02-02] MEDS ORDERED: DILT120ERA PO (13:20)
== END 2018-12-22 18:22 | disposition home or self-care (01) ==
LOC: ER 13:17 → MEDS 17:17 → PCU 12-22 10:25
PROVIDERS: Emergency Medicine; Family Medicine; Internal Medicine Cardiovascular Disease; ADMIT Internal Medicine
DX: I42.1 Obstructive hypertrophic cardiomyopathy (principal); I24.9 Acute ischemic heart disease, unspecified; I16.1 Hypertensive emergency; R77.8 Other specified abnormalities of plasma proteins; R94.39 Abnormal result of other cardiovascular function study; I25.2 Old myocardial infarction; E11.43 Type 2 diabetes mellitus with diabetic autonomic (poly)neuropathy; K31.84 Gastroparesis; I10 Essential (primary) hypertension; M87.9 Osteonecrosis, unspecified; M16.11 Unilateral primary osteoarthritis, right hip; F41.9 Anxiety disorder, unspecified; F32.9 Major depressive disorder, single episode, unspecified; J45.909 Unspecified asthma, uncomplicated; E66.9 Obesity, unspecified; Z79.899 Other long term (current) drug therapy; Z88.0 Allergy status to penicillin; Z88.5 Allergy status to narcotic agent; Z88.8 Allergy status to other drugs, medicaments and biological substances; Z87.891 Personal history of nicotine dependence; Z79.4 Long term (current) use of insulin
CPT/HCPCS: 36415; 70450; 74022; 78452; 80048; 80053; 80061; 82947; 84484; 85025; 85610; 86850; 86900; 86901; 93005; 93010; 93017; 93306; 93458; 96374; 96375; 99152; 99153; 99285-25; A9500; C1769; C1894; G0378; J0706; J1630; J1644; J2060; J2250; J2405; J2785; J3010; J7030; Q0177; Q9967

== ENCOUNTER 2019-01-01 22:38 | Emergency (ER) | payer MEDICARE, OTHER ==
[~2019-01-01] VITALS: Ht 157.5 cm; Wt 90.7 kg
[~2019-01-01 22:38] MED LIST changes: +ACET325 PO; +ASPI81CH PO; +ATOR40TA PO; +BISA10S PO; +CARV25 PO; +CLON.1 PO; +Cyclobenzaprine5 MG PO; +DULO60 PO; +HYDSUL200 PO; +NITR.4SL SL; +ONDA4ODT SL; +OXYC10TA19 PO; +PREG75 PO; +Prinivil10 MG PO; +RIZATRIPTAN10 M1 PO
[2019-01-01 22:50] LABS: BASOPHILS ABSOLUTE AUTO 0.07 K/mm3 (0.00-0.23); BASOPHILS PERCENT AUTO 1 % (0-2); EOSINOPHILS ABSOLUTE AUTO 0.09 K/mm3 (0.00-0.68); EOSINOPHILS PERCENT AUTO 1 % (0-6); Hematocrit 43.2 % (33.0-51.0); Hemoglobin 13.9 g/dL (11.5-16.0); IMMATURE GRAN ABSOLUTE AUTO 0.03 K/mm3 (0.00-0.10); IMMATURE GRAN PERCENT AUTO 0 % (0-1); LYMPHOCYTES ABSOLUTE AUTO 1.96 K/mm3 (0.84-5.20); LYMPHOCYTES PERCENT AUTO 20 % (21-46); MONOCYTES PERCENT AUTO 10 % (4-13); Mean Corpuscular HGB 28.7 pg (26.0-34.0); Mean Corpuscular HGB Conc 32.2 g/dL (31.5-36.5); Mean Platelet Volume 9.7 fL (9.1-12.4); NEUTROPHILS ABSOLUTE AUTO 6.89 K/mm3 (1.96-9.15); NEUTROPHILS PERCENT AUTO 69 % (41-73); Platelet Count 363 K/mm3 (150-400); RDW Coefficient Variation 15.8 % (11.7-14.2); RDW Standard Deviation 52.2 fL (35.1-46.3); Red Blood Cell Count 4.84 M/mm3 (3.80-5.20); White Blood Cell Count 10.04 K/mm3 (4.00-11.30)
[2019-01-01 22:51] LABS: Mean Corpuscular Volume 89 fL (80-100)
[2019-01-01 23:11] LABS: Alanine Aminotransfer (ALT/SGP 27 U/L (12-78); Albumin, Blood 3.9 g/dL (3.4-5.0); Albumin/Globulin Ratio 1.2 (0.8-1.8); Alk Phos 116 U/L (50-136); Anion Gap 7 mmol/L (6-16); Aspartate Aminotrans (AST/SGOT 12 U/L (12-37); Bilirubin, Total 0.3 mg/dL (0.1-1.0); Blood Urea Nitrogen 24 mg/dL (8-24); Bun/Creatinine Ratio 33.3 (12.0-20.0); CO2, Blood 22 mmol/L (21-32); Calcium, Blood 10.4 mg/dL (8.5-10.1); Chloride, Blood 114 mmol/L (98-108); Creatinine, Blood 0.72 mg/dL (0.40-1.00); Globulin, Blood 3.3 g/dL (2.2-4.0); Glomerular Filtration Rate >60 (60-); Glucose, Blood 120 mg/dL (70-99); Potassium, Blood 3.8 mmol/L (3.5-5.5); Sodium, Blood 143 mmol/L (136-145); Total Protein, Blood 7.2 g/dL (6.4-8.2); Troponin I 0.026 ng/mL (0.000-0.040)
[2019-02-02] MEDS ORDERED: Ropinirole HCl1 MG PO (10:47)
[2019-02-02] MEDS ORDERED: OXYB5ER PO (10:48)
[2019-02-02] MEDS ORDERED: Hydrocodone-Ap1 EA20 PO (10:48)
[2019-02-02] MEDS ORDERED: VITAMIN D31000 UNI2 PO (10:49)
[2019-02-02] MEDS ORDERED: ESTRADIOL PO (10:49)
[2019-02-02] MEDS ORDERED: OXYMORPHONE HCL10 MG PO (10:50)
[2019-02-02] MEDS ORDERED: Catapres-Tts 11 EACH PO (10:50)
[2019-02-02] MEDS ORDERED: BUSP10 PO (10:53)
[2019-02-02] MEDS ORDERED: DILT120ERA PO (13:20)
== END 2019-01-02 01:23 | disposition home or self-care (01) ==
LOC: ER 22:38
PROVIDERS: Emergency Medicine
DX: R07.9 Chest pain, unspecified (principal); E11.43 Type 2 diabetes mellitus with diabetic autonomic (poly)neuropathy; K31.84 Gastroparesis; J45.909 Unspecified asthma, uncomplicated; I10 Essential (primary) hypertension; Z87.891 Personal history of nicotine dependence; Z91.030 Bee allergy status; Z88.1 Allergy status to other antibiotic agents; Z88.0 Allergy status to penicillin; Z88.8 Allergy status to other drugs, medicaments and biological substances; Z79.899 Other long term (current) drug therapy; Z79.82 Long term (current) use of aspirin
CPT/HCPCS: 71046; 80053; 84484; 85025; 93005; 93010; 96374; 99285-25; J2060

== ENCOUNTER 2019-01-04 05:34 | Emergency (ER) | payer MEDICARE, OTHER ==
[~2019-01-04] VITALS: Ht 160 cm; Wt 90.7 kg
[2019-01-04 07:10] LABS: BASOPHILS ABSOLUTE AUTO 0.08 K/mm3 (0.00-0.23); BASOPHILS PERCENT AUTO 1 % (0-2); EOSINOPHILS ABSOLUTE AUTO 0.25 K/mm3 (0.00-0.68); EOSINOPHILS PERCENT AUTO 4 % (0-6); Hematocrit 40.7 % (33.0-51.0); Hemoglobin 12.7 g/dL (11.5-16.0); IMMATURE GRAN ABSOLUTE AUTO 0.01 K/mm3 (0.00-0.10); IMMATURE GRAN PERCENT AUTO 0 % (0-1); LYMPHOCYTES ABSOLUTE AUTO 1.77 K/mm3 (0.84-5.20); LYMPHOCYTES PERCENT AUTO 29 % (21-46); MONOCYTES ABSOLUTE AUTO 0.67 K/mm3 (0.16-1.47); MONOCYTES PERCENT AUTO 11 % (4-13); Mean Corpuscular HGB 28.6 pg (26.0-34.0); Mean Corpuscular HGB Conc 31.2 g/dL (31.5-36.5); NEUTROPHILS ABSOLUTE AUTO 3.33 K/mm3 (1.96-9.15); NEUTROPHILS PERCENT AUTO 54 % (41-73); RDW Standard Deviation 53.6 fL (35.1-46.3); Red Blood Cell Count 4.44 M/mm3 (3.80-5.20); White Blood Cell Count 6.11 K/mm3 (4.00-11.30)
[2019-01-04 07:18] LABS: Mean Corpuscular Volume 92 fL (80-100); Mean Platelet Volume 10.5 fL (9.1-12.4); Platelet Count 151 K/mm3 (150-400)
[2019-01-04 07:28] LABS: Alanine Aminotransfer (ALT/SGP 19 U/L (12-78); Albumin, Blood 3.4 g/dL (3.4-5.0); Albumin/Globulin Ratio 1.1 (0.8-1.8); Alk Phos 110 U/L (50-136); Anion Gap 6 mmol/L (6-16); Aspartate Aminotrans (AST/SGOT 19 U/L (12-37); Bilirubin, Total 0.2 mg/dL (0.1-1.0); Blood Urea Nitrogen 31 mg/dL (8-24); CO2, Blood 21 mmol/L (21-32); Calcium, Blood 9.7 mg/dL (8.5-10.1); Chloride, Blood 112 mmol/L (98-108); Creatinine, Blood 0.97 mg/dL (0.40-1.00); Glomerular Filtration Rate >60 (60-); Glucose, Blood 99 mg/dL (70-99); Potassium, Blood 4.2 mmol/L (3.5-5.5); Sodium, Blood 139 mmol/L (136-145); Total Protein, Blood 6.4 g/dL (6.4-8.2); Troponin I <0.015 ng/mL (0.000-0.040)
[2019-02-02] MEDS ORDERED: Ropinirole HCl1 MG PO (10:47)
[2019-02-02] MEDS ORDERED: OXYB5ER PO (10:48)
[2019-02-02] MEDS ORDERED: Hydrocodone-Ap1 EA20 PO (10:48)
[2019-02-02] MEDS ORDERED: VITAMIN D31000 UNI2 PO (10:49)
[2019-02-02] MEDS ORDERED: ESTRADIOL PO (10:49)
[2019-02-02] MEDS ORDERED: OXYMORPHONE HCL10 MG PO (10:50)
[2019-02-02] MEDS ORDERED: Catapres-Tts 11 EACH PO (10:50)
[2019-02-02] MEDS ORDERED: BUSP10 PO (10:53)
[2019-02-02] MEDS ORDERED: DILT120ERA PO (13:20)
== END 2019-01-04 09:15 | disposition home or self-care (01) ==
LOC: ER 05:34
PROVIDERS: Emergency Medicine
DX: R53.83 Other fatigue (principal); I10 Essential (primary) hypertension; E11.9 Type 2 diabetes mellitus without complications; Z87.442 Personal history of urinary calculi; F41.9 Anxiety disorder, unspecified; Z91.030 Bee allergy status; Z88.0 Allergy status to penicillin; Z88.1 Allergy status to other antibiotic agents; Z88.8 Allergy status to other drugs, medicaments and biological substances; Z79.899 Other long term (current) drug therapy; Z79.82 Long term (current) use of aspirin
CPT/HCPCS: 36415; 80053; 84484; 85025; 93005; 93010; 99285-25

== ENCOUNTER 2019-01-26 14:45 | Emergency (ER) | payer MEDICARE, OTHER ==
[~2019-01-26] VITALS: Ht 160 cm; Wt 90.7 kg
[2019-02-02] MEDS ORDERED: Ropinirole HCl1 MG PO (10:47)
[2019-02-02] MEDS ORDERED: Hydrocodone-Ap1 EA20 PO (10:48)
[2019-02-02] MEDS ORDERED: OXYB5ER PO (10:48)
[2019-02-02] MEDS ORDERED: ESTRADIOL PO (10:49)
[2019-02-02] MEDS ORDERED: VITAMIN D31000 UNI2 PO (10:49)
[2019-02-02] MEDS ORDERED: OXYMORPHONE HCL10 MG PO (10:50)
[2019-02-02] MEDS ORDERED: Catapres-Tts 11 EACH PO (10:50)
[2019-02-02] MEDS ORDERED: BUSP10 PO (10:53)
[2019-02-02] MEDS ORDERED: DILT120ERA PO (13:20)
== END 2019-01-26 16:31 | disposition home or self-care (01) ==
LOC: ER 14:45
DX: G89.29 Other chronic pain (principal); M25.551 Pain in right hip; I10 Essential (primary) hypertension; E11.51 Type 2 diabetes mellitus with diabetic peripheral angiopathy without gangrene; I73.9 Peripheral vascular disease, unspecified; F41.9 Anxiety disorder, unspecified; G47.30 Sleep apnea, unspecified; Z87.442 Personal history of urinary calculi; Z87.891 Personal history of nicotine dependence; Z91.038 Other insect allergy status; Z88.0 Allergy status to penicillin; Z88.1 Allergy status to other antibiotic agents; Z88.5 Allergy status to narcotic agent; Z88.8 Allergy status to other drugs, medicaments and biological substances; Z79.899 Other long term (current) drug therapy; Z79.82 Long term (current) use of aspirin
CPT/HCPCS: 73502; 96374; 99283-25; J3010

== ENCOUNTER 2019-01-27 21:38 | Emergency (ER) | payer MEDICARE, OTHER ==
[~2019-01-27] VITALS: Ht 160 cm; Wt 88.5 kg
[2019-01-27 22:55] LABS: Source, Urine Clean Catch
[2019-01-27 22:57] LABS: Appearance, Urine Clear (Clear); Bilirubin, Urine Neg (Neg); Blood, Urine Neg (Neg); Color, Urine Yellow (P-Yellow); Glucose Qualitative, Urine Neg (Neg); Ketones, Urine Neg (Neg); Leukocyte Esterase, Urine Neg (Neg); Nitrite, Urine Neg (Neg); Protein, Urine Neg (Neg); Specific Gravity, Urine 1.015 (1.003-1.022); Urobilinogen, Urine NORM (Normal)
[2019-02-02] MEDS ORDERED: Ropinirole HCl1 MG PO (10:47)
[2019-02-02] MEDS ORDERED: OXYB5ER PO (10:48)
[2019-02-02] MEDS ORDERED: Hydrocodone-Ap1 EA20 PO (10:48)
[2019-02-02] MEDS ORDERED: VITAMIN D31000 UNI2 PO (10:49)
[2019-02-02] MEDS ORDERED: ESTRADIOL PO (10:49)
[2019-02-02] MEDS ORDERED: OXYMORPHONE HCL10 MG PO (10:50)
[2019-02-02] MEDS ORDERED: Catapres-Tts 11 EACH PO (10:50)
[2019-02-02] MEDS ORDERED: BUSP10 PO (10:53)
[2019-02-02] MEDS ORDERED: DILT120ERA PO (13:20)
== END 2019-01-28 00:09 | disposition home or self-care (01) ==
LOC: ER 21:38
PROVIDERS: Emergency Medicine
DX: G89.29 Other chronic pain (principal); M25.551 Pain in right hip; I10 Essential (primary) hypertension; E11.9 Type 2 diabetes mellitus without complications; F41.9 Anxiety disorder, unspecified; G47.30 Sleep apnea, unspecified; Z87.442 Personal history of urinary calculi; Z87.891 Personal history of nicotine dependence; Z91.030 Bee allergy status; Z88.0 Allergy status to penicillin; Z88.1 Allergy status to other antibiotic agents; Z88.8 Allergy status to other drugs, medicaments and biological substances; Z79.899 Other long term (current) drug therapy; Z79.82 Long term (current) use of aspirin
CPT/HCPCS: 36415; 81003; 93005; 93010; 96374; 99283-25; J2405

== ENCOUNTER 2019-01-28 15:39 | Emergency (ER) | payer MEDICARE, OTHER ==
[~2019-01-28] VITALS: Ht 160 cm; Wt 90.7 kg
[2019-01-28 16:30] LABS: BASOPHILS ABSOLUTE AUTO 0.05 K/mm3 (0.00-0.23); BASOPHILS PERCENT AUTO 1 % (0-2); EOSINOPHILS ABSOLUTE AUTO 0.04 K/mm3 (0.00-0.68); EOSINOPHILS PERCENT AUTO 0 % (0-6); Hematocrit 41.1 % (33.0-51.0); Hemoglobin 13.2 g/dL (11.5-16.0); IMMATURE GRAN ABSOLUTE AUTO 0.03 K/mm3 (0.00-0.10); IMMATURE GRAN PERCENT AUTO 0 % (0-1); LYMPHOCYTES ABSOLUTE AUTO 1.41 K/mm3 (0.84-5.20); LYMPHOCYTES PERCENT AUTO 14 % (21-46); MONOCYTES ABSOLUTE AUTO 0.96 K/mm3 (0.16-1.47); MONOCYTES PERCENT AUTO 9 % (4-13); Mean Corpuscular HGB 29.9 pg (26.0-34.0); Mean Corpuscular HGB Conc 32.1 g/dL (31.5-36.5); Mean Corpuscular Volume 93 fL (80-100); Mean Platelet Volume 9.6 fL (9.1-12.4); NEUTROPHILS ABSOLUTE AUTO 7.73 K/mm3 (1.96-9.15); NEUTROPHILS PERCENT AUTO 76 % (41-73); Platelet Count 320 K/mm3 (150-400); RDW Coefficient Variation 15.1 % (11.7-14.2); RDW Standard Deviation 52.9 fL (35.1-46.3); Red Blood Cell Count 4.41 M/mm3 (3.80-5.20); White Blood Cell Count 10.22 K/mm3 (4.00-11.30)
[2019-01-28 16:57] LABS: Alanine Aminotransfer (ALT/SGP 20 U/L (12-78); Albumin, Blood 3.9 g/dL (3.4-5.0); Albumin/Globulin Ratio 1.2 (0.8-1.8); Alk Phos 103 U/L (50-136); Anion Gap 5 mmol/L (6-16); Aspartate Aminotrans (AST/SGOT 11 U/L (12-37); Bilirubin, Total 0.6 mg/dL (0.1-1.0); Blood Urea Nitrogen 11 mg/dL (8-24); Bun/Creatinine Ratio 14.9 (12.0-20.0); CO2, Blood 25 mmol/L (21-32); Calcium, Blood 10.3 mg/dL (8.5-10.1); Chloride, Blood 112 mmol/L (98-108); Creatinine, Blood 0.74 mg/dL (0.40-1.00); Globulin, Blood 3.2 g/dL (2.2-4.0); Glomerular Filtration Rate >60 (60-); Glucose, Blood 111 mg/dL (70-99); Potassium, Blood 3.4 mmol/L (3.5-5.5); Sodium, Blood 142 mmol/L (136-145); Total Protein, Blood 7.1 g/dL (6.4-8.2); Troponin I 0.039 ng/mL (0.000-0.040)
[2019-02-02] MEDS ORDERED: Ropinirole HCl1 MG PO (10:47)
[2019-02-02] MEDS ORDERED: OXYB5ER PO (10:48)
[2019-02-02] MEDS ORDERED: Hydrocodone-Ap1 EA20 PO (10:48)
[2019-02-02] MEDS ORDERED: ESTRADIOL PO (10:49)
[2019-02-02] MEDS ORDERED: VITAMIN D31000 UNI2 PO (10:49)
[2019-02-02] MEDS ORDERED: OXYMORPHONE HCL10 MG PO (10:50)
[2019-02-02] MEDS ORDERED: Catapres-Tts 11 EACH PO (10:50)
[2019-02-02] MEDS ORDERED: BUSP10 PO (10:53)
[2019-02-02] MEDS ORDERED: DILT120ERA PO (13:20)
== END 2019-01-28 17:23 | disposition home or self-care (01) ==
LOC: ER 15:39
PROVIDERS: Emergency Medicine
DX: F41.9 Anxiety disorder, unspecified (principal); M25.551 Pain in right hip; G89.29 Other chronic pain; Z91.030 Bee allergy status; Z88.0 Allergy status to penicillin; Z88.1 Allergy status to other antibiotic agents; Z88.6 Allergy status to analgesic agent; Z79.899 Other long term (current) drug therapy; Z79.82 Long term (current) use of aspirin; I10 Essential (primary) hypertension; E11.9 Type 2 diabetes mellitus without complications; Z87.891 Personal history of nicotine dependence
CPT/HCPCS: 80053; 84484; 85025; 93005; 93010; 96372; 99284-25; J1200; J1630

== ENCOUNTER 2019-02-06 15:51 | Inpatient (IN) | payer MEDICARE, OTHER ==
[~2019-02-06] VITALS: Ht 160 cm; Wt 88.9 kg
[~2019-02-06 15:51] MED LIST changes: +Catapres-Tts 11 EACH PO; +DILT120ERA PO; +ESTRADIOL VAG; +Hydrocodone-Ap1 EA20 PO; +OXYB5ER PO; +Ropinirole HCl1 MG PO; +VITAMIN D31000 UNI2 PO
[2019-02-11] MEDS ORDERED: HYDSUL200 PO (06:34)
--- NOTE | 2019-02-11 06:43 | NUR ---
INTO SDS VIA WHEELCHAIR.PT APPEARS VERY ANXIOUS. REPORTS 8/10 RIGHT HIP PAIN. HISTORY AND ALLERGIES REVIEWED. NPO STATUS CONFIRMED.HEART MURMUR AUSCULTATED. LUNGS DIMINISHED TO BASES, BUT SATS>90% ON RA. Patient reports completing Chlorhexadine shower X2 prior to admission to hospital.Surgical site prepped with 2% Chlorhexidine cloth wipe.
--- NOTE | 2019-02-11 12:51 | NUR ---
HOSPITALIST CONSULT CALLED.
[2019-02-11 14:28] LABS: BASOPHILS ABSOLUTE AUTO 0.01 K/mm3 (0.00-0.23); BASOPHILS PERCENT AUTO 0 % (0-2); EOSINOPHILS PERCENT AUTO 0 % (0-6); Hematocrit 36.9 % (33.0-51.0); Hemoglobin 11.5 g/dL (11.5-16.0); IMMATURE GRAN ABSOLUTE AUTO 0.04 K/mm3 (0.00-0.10); IMMATURE GRAN PERCENT AUTO 0 % (0-1); LYMPHOCYTES ABSOLUTE AUTO 0.48 K/mm3 (0.84-5.20); LYMPHOCYTES PERCENT AUTO 4 % (21-46); MONOCYTES ABSOLUTE AUTO 0.31 K/mm3 (0.16-1.47); MONOCYTES PERCENT AUTO 3 % (4-13); Mean Corpuscular HGB 30.1 pg (26.0-34.0); Mean Corpuscular HGB Conc 31.2 g/dL (31.5-36.5); Mean Corpuscular Volume 97 fL (80-100); Mean Platelet Volume 10.1 fL (9.1-12.4); NEUTROPHILS ABSOLUTE AUTO 10.05 K/mm3 (1.96-9.15); NEUTROPHILS PERCENT AUTO 92 % (41-73); Platelet Count 291 K/mm3 (150-400); RDW Coefficient Variation 14.5 % (11.7-14.2); RDW Standard Deviation 50.8 fL (35.1-46.3); Red Blood Cell Count 3.82 M/mm3 (3.80-5.20); White Blood Cell Count 10.89 K/mm3 (4.00-11.30)
[2019-02-11 14:49] LABS: Alanine Aminotransfer (ALT/SGP 22 U/L (12-78); Albumin, Blood 3.2 g/dL (3.4-5.0); Alk Phos 95 U/L (50-136); Anion Gap 4 mmol/L (6-16); Aspartate Aminotrans (AST/SGOT 16 U/L (12-37); Bilirubin, Total 0.3 mg/dL (0.1-1.0); Blood Urea Nitrogen 19 mg/dL (8-24); Bun/Creatinine Ratio 28.8 (12.0-20.0); CO2, Blood 25 mmol/L (21-32); Calcium, Blood 9.6 mg/dL (8.5-10.1); Chloride, Blood 108 mmol/L (98-108); Creatinine, Blood 0.66 mg/dL (0.40-1.00); Globulin, Blood 3.1 g/dL (2.2-4.0); Glomerular Filtration Rate >60 (60-); Glucose, Blood 136 mg/dL (70-99); Potassium, Blood 4.6 mmol/L (3.5-5.5); Sodium, Blood 137 mmol/L (136-145); Total Protein, Blood 6.3 g/dL (6.4-8.2)
--- NOTE | 2019-02-11 15:00 | NUR ---
PATIENT UP TO BSC X 2 SINCE ARRIVAL TO FLOOR. VOIDED. UPSET, CRYING, NO TEARS. STATES 'THEY DIDNT TELL ME IT WOULD HURT.' PATIENT THEN SLEEPS WHEN NOT DISTURBED. MEDICATED W/PO MED AFTER TOLERATING JELLO. CONT TO MONITOR.
--- NOTE | 2019-02-11 19:10 | NUR ---
PATIENT UP W/SBA, GB, FWW TO BR. VOIDED. BACK TO CHAIR. TAKING DINNER. "NOW THE PAIN IN MY LEG JUST FEELS LIKE IT USUALLY DOES." CIRC CHECKS WNL. DRESSINGS D&I. REPORT TO JACQUELINE NGUYEN.
[2019-02-12 04:35] LABS: BASOPHILS ABSOLUTE AUTO 0.01 K/mm3 (0.00-0.23); BASOPHILS PERCENT AUTO 0 % (0-2); EOSINOPHILS PERCENT AUTO 0 % (0-6); Hematocrit 35.8 % (33.0-51.0); Hemoglobin 11.1 g/dL (11.5-16.0); IMMATURE GRAN ABSOLUTE AUTO 0.05 K/mm3 (0.00-0.10); IMMATURE GRAN PERCENT AUTO 1 % (0-1); LYMPHOCYTES ABSOLUTE AUTO 0.84 K/mm3 (0.84-5.20); LYMPHOCYTES PERCENT AUTO 9 % (21-46); MONOCYTES ABSOLUTE AUTO 0.91 K/mm3 (0.16-1.47); MONOCYTES PERCENT AUTO 10 % (4-13); Mean Corpuscular HGB 29.3 pg (26.0-34.0); Mean Corpuscular Volume 95 fL (80-100); Mean Platelet Volume 10.3 fL (9.1-12.4); NEUTROPHILS ABSOLUTE AUTO 7.46 K/mm3 (1.96-9.15); NEUTROPHILS PERCENT AUTO 81 % (41-73); Platelet Count 305 K/mm3 (150-400); RDW Coefficient Variation 14.4 % (11.7-14.2); RDW Standard Deviation 50.2 fL (35.1-46.3); Red Blood Cell Count 3.79 M/mm3 (3.80-5.20); White Blood Cell Count 9.27 K/mm3 (4.00-11.30)
[2019-02-12 04:52] LABS: Anion Gap 6 mmol/L (6-16); Blood Urea Nitrogen 16 mg/dL (8-24); CO2, Blood 27 mmol/L (21-32); Calcium, Blood 9.9 mg/dL (8.5-10.1); Chloride, Blood 104 mmol/L (98-108); Creatinine, Blood 0.64 mg/dL (0.40-1.00); Glomerular Filtration Rate >60 (60-); Glucose, Blood 123 mg/dL (70-99); Magnesium, Blood 1.9 mg/dL (1.6-2.4); Potassium, Blood 4.4 mmol/L (3.5-5.5); Sodium, Blood 137 mmol/L (136-145)
--- NOTE | 2019-02-12 07:00 | NUR ---
recvd report from previous shift RN Jaleel, pt sleeping in room, bed in lowest position, call light within reach. Dr Rodas rounding on pt
[2019-02-12] MEDS ORDERED: ASPI81CH PO (08:53)
[2019-02-12] MEDS ORDERED: CARV25 PO (08:54)
[2019-02-12] MEDS ORDERED: Percocet 5-3251 EACH PO (08:54)
[2019-02-12] MEDS ORDERED: Bactrim Ds Tab1 EACH PO (08:55)
--- NOTE | 2019-02-12 09:10 | NUR ---
pt tearfully explains she has no therapy gymnastic coach, will need ambulance and wheelchair transport home and up her [address] Rodas orders home health. have communicated with social work program coordinator/logistics planner pt's needs
--- NOTE | 2019-02-12 15:15 | NUR ---
menu planner arranged for pt to be transported home via wheelchair van. pt provided with discharge instructions, printed education, resource material. pt states understanding of instructions. prescriptions were provided to pt prior to admission, and pt states she has filled them, shows this RN filled prescriptions. peripheral IV removed WNL. pt's belongings packed. awaiting transfer home via wheelchair van
--- NOTE | 2019-02-12 16:25 | NUR ---
pt escorted via wheelchair to wheelchair van. belongings transported to van on cart.
--- NOTE | 2019-02-16 12:10 | NUR ---
02/16/19 1210 Maliha Miller VERIFICATIONS: EDIT CHART.
== END 2019-02-12 16:25 | disposition home or self-care (01) | DRG 470 ==
LOC: SURS 02-11 06:02 → PRE IP 02-11 07:30 → SURS 02-11 12:20
PROVIDERS: Nurse Practitioner Acute Care; ADMIT Orthopaedic Surgery
PROC: 0SR904A Replacement of Right Hip Joint with Ceramic on Polyethylene Synthetic Substitute, Uncemented, Open Approach (ICD-10-PCS; principal; 2019-02-11 07:30)
DX: M16.11 Unilateral primary osteoarthritis, right hip (principal); F11.20 Opioid dependence, uncomplicated; E11.9 Type 2 diabetes mellitus without complications; F41.0 Panic disorder [episodic paroxysmal anxiety]; I10 Essential (primary) hypertension; J45.20 Mild intermittent asthma, uncomplicated; I25.10 Atherosclerotic heart disease of native coronary artery without angina pectoris; G89.29 Other chronic pain; M54.9 Dorsalgia, unspecified; Z87.891 Personal history of nicotine dependence; Z88.5 Allergy status to narcotic agent; Z88.0 Allergy status to penicillin; Z88.8 Allergy status to other drugs, medicaments and biological substances; Z88.1 Allergy status to other antibiotic agents; Z91.038 Other insect allergy status
CPT/HCPCS: 36415; 72170; 80048; 80053; 82947; 83735; 85025; 88300; 93005; 93010; 97110; 97116; 97162; 97166; 97530; 97535; C1713; C1776; J0171; J0735; J1100; J1650; J2060; J2250; J2270; J2370; J2405; J2704; J2795; J3010; J3370; J7030; J7120

== ENCOUNTER → 2019-03-26 | Outpatient (CLI) | payer MEDICARE, OTHER ==
[~2019-03-26] MED LIST changes: +Bactrim Ds Tab1 EACH PO; +PROC5 PO
[2019-03-26 20:04] LABS: Blood, Urine Neg (Neg); Glucose Qualitative, Urine Neg (Neg); Ketones, Urine Neg (Neg); Leukocyte Esterase, Urine Neg (Neg); Nitrite, Urine Pos (Neg); Protein, Urine 2+ (Neg); Specific Gravity, Urine 1.025 (1.003-1.022); Urobilinogen, Urine 3+ (Normal)
[2019-03-26 20:16] LABS: Bilirubin, Urine 3+ (Neg)
[2019-03-26 20:18] LABS: Color, Urine Orange (P-Yellow)
[2019-03-26 20:19] LABS: Appearance, Urine Hazy (Clear)
[2019-03-26 20:20] LABS: Bacteria Many /hpf; Red Blood Cells, Urine Not Seen /hpf (0-2); Squamous Epithelial Cells Few /hpf (Few)
[2019-03-26 20:21] LABS: Calcium Oxalate Crystals Few /hpf
== END ==
LOC: LAB SHORT 19:01 → LAB 19:01
PROVIDERS: Internal Medicine Nephrology
DX: N39.0 Urinary tract infection, site not specified (principal)
CPT/HCPCS: 81001; 87077; 87086; 87186

== ENCOUNTER 2019-04-21 23:17 | Emergency (ER) | payer MEDICARE, OTHER ==
[~2019-04-21] VITALS: Ht 157.5 cm; Wt 90.7 kg
[~2019-04-21 23:17] MED LIST changes: -PROC5 PO
[2019-04-21 23:55] LABS: BASOPHILS ABSOLUTE AUTO 0.08 K/mm3 (0.00-0.23); BASOPHILS PERCENT AUTO 1 % (0-2); EOSINOPHILS ABSOLUTE AUTO 0.05 K/mm3 (0.00-0.68); EOSINOPHILS PERCENT AUTO 1 % (0-6); Hematocrit 37.3 % (33.0-51.0); Hemoglobin 11.3 g/dL (11.5-16.0); IMMATURE GRAN ABSOLUTE AUTO 0.03 K/mm3 (0.00-0.10); IMMATURE GRAN PERCENT AUTO 0 % (0-1); LYMPHOCYTES ABSOLUTE AUTO 1.59 K/mm3 (0.84-5.20); LYMPHOCYTES PERCENT AUTO 17 % (21-46); MONOCYTES ABSOLUTE AUTO 0.86 K/mm3 (0.16-1.47); MONOCYTES PERCENT AUTO 9 % (4-13); Mean Corpuscular HGB 25.1 pg (26.0-34.0); Mean Corpuscular HGB Conc 30.3 g/dL (31.5-36.5); Mean Corpuscular Volume 83 fL (80-100); Mean Platelet Volume 11.5 fL (9.1-12.4); NEUTROPHILS ABSOLUTE AUTO 6.81 K/mm3 (1.96-9.15); NEUTROPHILS PERCENT AUTO 72 % (41-73); Platelet Count 351 K/mm3 (150-400); RDW Coefficient Variation 15.5 % (11.7-14.2); RDW Standard Deviation 46.9 fL (35.1-46.3); Red Blood Cell Count 4.51 M/mm3 (3.80-5.20); White Blood Cell Count 9.42 K/mm3 (4.00-11.30)
[2019-04-22 00:07] LABS: Alanine Aminotransfer (ALT/SGP 22 U/L (12-78); Albumin, Blood 3.8 g/dL (3.4-5.0); Albumin/Globulin Ratio 1.2 (0.8-1.8); Alk Phos 133 U/L (50-136); Anion Gap 6 mmol/L (6-16); Aspartate Aminotrans (AST/SGOT 15 U/L (12-37); Bilirubin, Total 0.4 mg/dL (0.1-1.0); Blood Urea Nitrogen 13 mg/dL (8-24); Bun/Creatinine Ratio 19.7 (12.0-20.0); CO2, Blood 24 mmol/L (21-32); Calcium, Blood 9.9 mg/dL (8.5-10.1); Chloride, Blood 112 mmol/L (98-108); Creatinine, Blood 0.66 mg/dL (0.40-1.00); Globulin, Blood 3.2 g/dL (2.2-4.0); Glomerular Filtration Rate >60 (60-); Glucose, Blood 109 mg/dL (70-99); Potassium, Blood 3.3 mmol/L (3.5-5.5); Sodium, Blood 142 mmol/L (136-145)
[2019-04-22 00:17] LABS: Source, Urine Voided
[2019-04-22 00:21] LABS: Appearance, Urine Clear (Clear); Bilirubin, Urine Neg (Neg); Blood, Urine 1+ (Neg); Color, Urine Yellow (P-Yellow); Glucose Qualitative, Urine Neg (Neg); Ketones, Urine Neg (Neg); Leukocyte Esterase, Urine Neg (Neg); Nitrite, Urine Neg (Neg); Protein, Urine 1+ (Neg); Specific Gravity, Urine 1.025 (1.003-1.022); Urobilinogen, Urine NORM (Normal)
[2019-04-22 00:27] LABS: Bacteria Many /hpf; Calcium Oxalate Crystals Few /hpf; Mucus Mod (0-Heavy); Red Blood Cells, Urine 0-2 /hpf (0-2); Squamous Epithelial Cells Mod /hpf (Few)
[2019-04-22] MEDS ORDERED: PROC5 PO (01:01)
== END 2019-04-22 01:40 | disposition home or self-care (01) ==
LOC: ER 23:17
PROVIDERS: Emergency Medicine
DX: R11.2 Nausea with vomiting, unspecified (principal); G43.909 Migraine, unspecified, not intractable, without status migrainosus; I10 Essential (primary) hypertension; E11.51 Type 2 diabetes mellitus with diabetic peripheral angiopathy without gangrene; I73.9 Peripheral vascular disease, unspecified; F41.9 Anxiety disorder, unspecified; J45.909 Unspecified asthma, uncomplicated; Z91.030 Bee allergy status; Z88.0 Allergy status to penicillin; Z88.1 Allergy status to other antibiotic agents; Z88.5 Allergy status to narcotic agent; Z88.8 Allergy status to other drugs, medicaments and biological substances; Z79.899 Other long term (current) drug therapy; Z79.82 Long term (current) use of aspirin; Z87.891 Personal history of nicotine dependence
CPT/HCPCS: 36415; 74176; 80053; 81001; 83690; 85025; 87086; 93005; 93010; 96361; 96374; 96375; 96376; 99285-25; J0780; J1200; J7030

== ENCOUNTER 2019-04-23 05:06 | Emergency (ER) | payer MEDICARE, OTHER ==
[~2019-04-23] VITALS: Ht 157.5 cm; Wt 86.2 kg
[~2019-04-23 05:06] MED LIST changes: +PROC5 PO
[2019-04-23 05:58] LABS: BASOPHILS ABSOLUTE AUTO 0.08 K/mm3 (0.00-0.23); BASOPHILS PERCENT AUTO 1 % (0-2); EOSINOPHILS ABSOLUTE AUTO 0.05 K/mm3 (0.00-0.68); EOSINOPHILS PERCENT AUTO 1 % (0-6); Hematocrit 38.5 % (33.0-51.0); Hemoglobin 11.8 g/dL (11.5-16.0); IMMATURE GRAN ABSOLUTE AUTO 0.02 K/mm3 (0.00-0.10); IMMATURE GRAN PERCENT AUTO 0 % (0-1); LYMPHOCYTES ABSOLUTE AUTO 1.65 K/mm3 (0.84-5.20); LYMPHOCYTES PERCENT AUTO 21 % (21-46); MONOCYTES ABSOLUTE AUTO 0.74 K/mm3 (0.16-1.47); MONOCYTES PERCENT AUTO 10 % (4-13); Mean Corpuscular HGB 25.3 pg (26.0-34.0); Mean Corpuscular HGB Conc 30.6 g/dL (31.5-36.5); Mean Corpuscular Volume 82 fL (80-100); Mean Platelet Volume 11.2 fL (9.1-12.4); NEUTROPHILS ABSOLUTE AUTO 5.27 K/mm3 (1.96-9.15); NEUTROPHILS PERCENT AUTO 68 % (41-73); Platelet Count 360 K/mm3 (150-400); RDW Coefficient Variation 15.9 % (11.7-14.2); RDW Standard Deviation 47.7 fL (35.1-46.3); Red Blood Cell Count 4.67 M/mm3 (3.80-5.20); White Blood Cell Count 7.81 K/mm3 (4.00-11.30)
[2019-04-23 06:13] LABS: Alanine Aminotransfer (ALT/SGP 19 U/L (12-78); Albumin, Blood 3.9 g/dL (3.4-5.0); Albumin/Globulin Ratio 1.2 (0.8-1.8); Alk Phos 137 U/L (50-136); Anion Gap 8 mmol/L (6-16); Aspartate Aminotrans (AST/SGOT 17 U/L (12-37); Bilirubin, Total 0.6 mg/dL (0.1-1.0); Blood Urea Nitrogen 8 mg/dL (8-24); Bun/Creatinine Ratio 12.4 (12.0-20.0); CO2, Blood 23 mmol/L (21-32); Chloride, Blood 112 mmol/L (98-108); Creatinine, Blood 0.64 mg/dL (0.40-1.00); Globulin, Blood 3.2 g/dL (2.2-4.0); Glomerular Filtration Rate >60 (60-); Glucose, Blood 121 mg/dL (70-99); Potassium, Blood 3.3 mmol/L (3.5-5.5); Sodium, Blood 143 mmol/L (136-145); Total Protein, Blood 7.1 g/dL (6.4-8.2); Troponin I 0.028 ng/mL (0.000-0.040)
== END 2019-04-23 10:42 | disposition home or self-care (01) ==
LOC: ER 05:06
PROVIDERS: Emergency Medicine
DX: I11.9 Hypertensive heart disease without heart failure (principal); I43 Cardiomyopathy in diseases classified elsewhere; R51 Headache; F41.9 Anxiety disorder, unspecified; J45.909 Unspecified asthma, uncomplicated; E11.51 Type 2 diabetes mellitus with diabetic peripheral angiopathy without gangrene; I73.9 Peripheral vascular disease, unspecified; Z88.0 Allergy status to penicillin; Z91.030 Bee allergy status; Z88.8 Allergy status to other drugs, medicaments and biological substances; Z79.82 Long term (current) use of aspirin; Z79.899 Other long term (current) drug therapy; Z87.442 Personal history of urinary calculi; Z87.891 Personal history of nicotine dependence
CPT/HCPCS: 71046; 80053; 83690; 83880; 84484; 85025; 93005; 93010; 96374; 99285-25; J2060

== ENCOUNTER 2019-06-16 03:46 | Emergency (ER) | payer MEDICARE, OTHER ==
[~2019-06-16] VITALS: Ht 157.5 cm; Wt 72.6 kg
[2019-06-16 04:20] LABS: BASOPHILS ABSOLUTE AUTO 0.07 K/mm3 (0.00-0.23); BASOPHILS PERCENT AUTO 1 % (0-2); EOSINOPHILS PERCENT AUTO 0 % (0-6); Hematocrit 42.4 % (33.0-51.0); Hemoglobin 13.1 g/dL (11.5-16.0); IMMATURE GRAN ABSOLUTE AUTO 0.03 K/mm3 (0.00-0.10); IMMATURE GRAN PERCENT AUTO 0 % (0-1); LYMPHOCYTES ABSOLUTE AUTO 1.05 K/mm3 (0.84-5.20); LYMPHOCYTES PERCENT AUTO 9 % (21-46); MONOCYTES ABSOLUTE AUTO 0.52 K/mm3 (0.16-1.47); MONOCYTES PERCENT AUTO 5 % (4-13); Mean Corpuscular HGB 24.4 pg (26.0-34.0); Mean Corpuscular HGB Conc 30.9 g/dL (31.5-36.5); Mean Corpuscular Volume 79 fL (80-100); Mean Platelet Volume 10.9 fL (9.1-12.4); NEUTROPHILS ABSOLUTE AUTO 9.94 K/mm3 (1.96-9.15); NEUTROPHILS PERCENT AUTO 86 % (41-73); Platelet Count 428 K/mm3 (150-400); RDW Coefficient Variation 19.8 % (11.7-14.2); RDW Standard Deviation 55.2 fL (35.1-46.3); Red Blood Cell Count 5.37 M/mm3 (3.80-5.20); White Blood Cell Count 11.61 K/mm3 (4.00-11.30)
[2019-06-16 04:45] LABS: Alanine Aminotransfer (ALT/SGP 18 U/L (12-78); Albumin, Blood 3.9 g/dL (3.4-5.0); Alk Phos 145 U/L (50-136); Anion Gap 7 mmol/L (6-16); Aspartate Aminotrans (AST/SGOT 16 U/L (12-37); Bilirubin, Total 0.5 mg/dL (0.1-1.0); Blood Urea Nitrogen 16 mg/dL (8-24); Bun/Creatinine Ratio 20.6 (12.0-20.0); CO2, Blood 23 mmol/L (21-32); Calcium, Blood 10.3 mg/dL (8.5-10.1); Chloride, Blood 112 mmol/L (98-108); Creatinine, Blood 0.78 mg/dL (0.40-1.00); Globulin, Blood 3.8 g/dL (2.2-4.0); Glomerular Filtration Rate >60 (60-); Glucose, Blood 116 mg/dL (70-99); Potassium, Blood 3.5 mmol/L (3.5-5.5); Sodium, Blood 142 mmol/L (136-145); Total Protein, Blood 7.7 g/dL (6.4-8.2)
== END 2019-06-16 05:50 | disposition home or self-care (01) ==
LOC: ER 03:46
PROVIDERS: Emergency Medicine
DX: R11.2 Nausea with vomiting, unspecified (principal); E11.9 Type 2 diabetes mellitus without complications; J45.909 Unspecified asthma, uncomplicated; I10 Essential (primary) hypertension; Z88.0 Allergy status to penicillin; Z79.899 Other long term (current) drug therapy; Z88.5 Allergy status to narcotic agent
CPT/HCPCS: 80053; 83690; 85025; 93005; 93010; J1200; J1630; J7030

== ENCOUNTER 2019-10-25 22:00 | Emergency (ER) | payer MEDICARE, OTHER ==
[~2019-10-25] VITALS: Ht 160 cm; Wt 88.5 kg
[~2019-10-25 22:00] MED LIST changes: +DILTIAZEM 24HR120 M2 PO; +Pravachol20 MG
[2019-10-26 00:36] LABS: BASOPHILS ABSOLUTE AUTO 0.07 K/mm3 (0.00-0.23); BASOPHILS PERCENT AUTO 1 % (0-2); EOSINOPHILS PERCENT AUTO 2 % (0-6); Hematocrit 35.8 % (33.0-51.0); Hemoglobin 10.8 g/dL (11.5-16.0); IMMATURE GRAN ABSOLUTE AUTO 0.01 K/mm3 (0.00-0.10); IMMATURE GRAN PERCENT AUTO 0 % (0-1); LYMPHOCYTES ABSOLUTE AUTO 1.73 K/mm3 (0.84-5.20); LYMPHOCYTES PERCENT AUTO 21 % (21-46); MONOCYTES ABSOLUTE AUTO 0.85 K/mm3 (0.16-1.47); MONOCYTES PERCENT AUTO 10 % (4-13); Mean Corpuscular HGB 25.2 pg (26.0-34.0); Mean Corpuscular HGB Conc 30.2 g/dL (31.5-36.5); Mean Corpuscular Volume 83 fL (80-100); Mean Platelet Volume 9.9 fL (9.1-12.4); NEUTROPHILS ABSOLUTE AUTO 5.38 K/mm3 (1.96-9.15); NEUTROPHILS PERCENT AUTO 65 % (41-73); Platelet Count 274 K/mm3 (150-400); RDW Coefficient Variation 17.8 % (11.7-14.2); RDW Standard Deviation 54.9 fL (35.1-46.3); Red Blood Cell Count 4.29 M/mm3 (3.80-5.20); White Blood Cell Count 8.24 K/mm3 (4.00-11.30)
[2019-10-26 00:54] LABS: Alanine Aminotransfer (ALT/SGP 14 U/L (12-78); Albumin, Blood 3.2 g/dL (3.4-5.0); Alk Phos 106 U/L (50-136); Anion Gap 4 mmol/L (6-16); Aspartate Aminotrans (AST/SGOT 19 U/L (12-37); Bilirubin, Total 0.2 mg/dL (0.1-1.0); Blood Urea Nitrogen 13 mg/dL (8-24); Bun/Creatinine Ratio 20.9 (12.0-20.0); CO2, Blood 25 mmol/L (21-32); Calcium, Blood 9.6 mg/dL (8.5-10.1); Chloride, Blood 112 mmol/L (98-108); Creatinine, Blood 0.62 mg/dL (0.40-1.00); Globulin, Blood 3.1 g/dL (2.2-4.0); Glomerular Filtration Rate >60 (60-); Glucose, Blood 118 mg/dL (70-99); Potassium, Blood 3.7 mmol/L (3.5-5.5); Sodium, Blood 141 mmol/L (136-145); Total Protein, Blood 6.3 g/dL (6.4-8.2)
[2019-10-26 01:19] LABS: Source, Urine Catheter
[2019-10-26 01:22] LABS: Bilirubin, Urine Neg (Neg); Blood, Urine 1+ (Neg); Glucose Qualitative, Urine Neg (Neg); Ketones, Urine 1+ (Neg); Leukocyte Esterase, Urine 1+ (Neg); Nitrite, Urine Neg (Neg); Protein, Urine 2+ (Neg); Specific Gravity, Urine 1.025 (1.003-1.022); Urobilinogen, Urine NORM (Normal)
[2019-10-26 01:31] LABS: Appearance, Urine Clear (Clear); Color, Urine Yellow (P-Yellow)
[2019-10-26 01:32] LABS: Amorphous Light (0-Heavy); Bacteria Few /hpf; Mucus Light (0-Heavy); Squamous Epithelial Cells Mod /hpf (Few)
[2019-10-26 01:44] LABS: U Amphetamine Screen Not Detected; U Barbituate Screen Not Detected; U Benzodiazapine Screen DETECTED; U Buprenorphine Screen Not Detected; U Cannabinoids Screen DETECTED; U Cocaine Screen Not Detected; U Methadone Screen Not Detected; U Methamphetamine Screen Not Detected; U Opiates Screen Not Detected; U Oxycodone Screen DETECTED; U Phencyclidine Screen Not Detected; U Propoxyphene Screen Not Detected
== END 2019-10-26 03:49 | disposition home or self-care (01) ==
LOC: ER 22:00
PROVIDERS: Physician Assistant
DX: F41.9 Anxiety disorder, unspecified (principal); R45.1 Restlessness and agitation; Z88.0 Allergy status to penicillin; Z88.1 Allergy status to other antibiotic agents; Z88.8 Allergy status to other drugs, medicaments and biological substances; Z91.030 Bee allergy status; Z79.82 Long term (current) use of aspirin; Z79.899 Other long term (current) drug therapy; Z87.820 Personal history of traumatic brain injury; E11.9 Type 2 diabetes mellitus without complications; J45.909 Unspecified asthma, uncomplicated; I10 Essential (primary) hypertension; I25.2 Old myocardial infarction; F17.210 Nicotine dependence, cigarettes, uncomplicated
CPT/HCPCS: 36415; 70450; 80053; 81001; 85025; 87086; 96372-59; 96374-59; 96375-59; 99285-25; J1200; J1630; P9612

== ENCOUNTER 2020-05-21 14:46 | Emergency (ER) | payer MEDICARE, OTHER ==
[~2020-05-21] VITALS: Ht 160 cm; Wt 76.7 kg
[~2020-05-21 14:46] MED LIST changes: +Trazodone HCl300 MG PO
== END 2020-05-21 17:25 | disposition home or self-care (01) ==
LOC: ER 14:46
DX: G43.909 Migraine, unspecified, not intractable, without status migrainosus (principal); F11.23 Opioid dependence with withdrawal; E11.9 Type 2 diabetes mellitus without complications; I10 Essential (primary) hypertension; E78.5 Hyperlipidemia, unspecified; J45.909 Unspecified asthma, uncomplicated; F17.210 Nicotine dependence, cigarettes, uncomplicated; Z79.899 Other long term (current) drug therapy; Z79.82 Long term (current) use of aspirin; Z91.030 Bee allergy status; Z88.0 Allergy status to penicillin; Z88.1 Allergy status to other antibiotic agents; Z88.5 Allergy status to narcotic agent; Z88.6 Allergy status to analgesic agent
CPT/HCPCS: 96372; 99283-25; A9270; J1790

== ENCOUNTER 2020-07-16 19:26 | Emergency (ER) | payer MEDICARE, OTHER ==
[~2020-07-16] VITALS: Ht 160 cm; Wt 81.2 kg
[2020-07-16] MEDS ORDERED: AZIT250 PO (20:25)
== END 2020-07-16 20:41 | disposition home or self-care (01) ==
LOC: ER 19:26
DX: S20.319A Abrasion of unspecified front wall of thorax, initial encounter (principal); S20.419A Abrasion of unspecified back wall of thorax, initial encounter; S30.811A Abrasion of abdominal wall, initial encounter; E78.5 Hyperlipidemia, unspecified; E11.9 Type 2 diabetes mellitus without complications; Z23 Encounter for immunization; Z91.030 Bee allergy status; Z88.0 Allergy status to penicillin; Z88.8 Allergy status to other drugs, medicaments and biological substances; Z79.899 Other long term (current) drug therapy; Z87.442 Personal history of urinary calculi; W55.03XA Scratched by cat, initial encounter
CPT/HCPCS: 90471; 99283-25; A9270

== ENCOUNTER 2020-07-25 13:56 | Emergency (ER) | payer OTHER, MEDICARE ==
[~2020-07-25] VITALS: Ht 160 cm; Wt 77.1 kg
[~2020-07-25 13:56] MED LIST changes: +AZIT250 PO
[2020-07-25] MEDS ORDERED: ACETAMINOPHEN500 MG PO (14:36)
[2020-07-25] MEDS ORDERED: Valium5 MG PO (15:00)
[2020-07-25] MEDS ORDERED: LIDO700A20 TOP (16:39)
== END 2020-07-25 15:05 | disposition home or self-care (01) ==
LOC: ER 13:56
DX: S83.91XA Sprain of unspecified site of right knee, initial encounter (principal); I10 Essential (primary) hypertension; E11.9 Type 2 diabetes mellitus without complications; E78.5 Hyperlipidemia, unspecified; F17.210 Nicotine dependence, cigarettes, uncomplicated; Z79.899 Other long term (current) drug therapy; Z88.0 Allergy status to penicillin; Z88.1 Allergy status to other antibiotic agents; Z88.6 Allergy status to analgesic agent; Z91.030 Bee allergy status; W01.0XXA Fall on same level from slipping, tripping and stumbling without subsequent striking against object, initial encounter
CPT/HCPCS: 29505; 73562-RT; 99283-25; A9270-GY

== ENCOUNTER → 2020-07-29 | Outpatient (CLI) | payer MEDICARE, OTHER ==
[~2020-07-29] MED LIST changes: +ACETAMINOPHEN500 MG PO; +LIDO700A20 TOP; +Valium5 MG PO
[2020-08-01 13:12] LABS: U Benzodiazapine Screen DETECTED
[2020-08-01 13:13] LABS: U Amphetamine Screen Not Detected; U Barbituate Screen Not Detected; U Buprenorphine Screen Not Detected; U Cannabinoids Screen Not Detected; U Cocaine Screen Not Detected; U Methadone Screen Not Detected; U Methamphetamine Screen Not Detected; U Opiates Screen Not Detected; U Oxycodone Screen DETECTED; U Phencyclidine Screen Not Detected; U Propoxyphene Screen Not Detected
== END ==
LOC: LAB 17:17 → LAB SHORT 17:17
PROVIDERS: Physician Assistant
DX: G89.4 Chronic pain syndrome (principal)

== ENCOUNTER → 2020-09-15 | Outpatient (CLI) | payer MEDICARE, OTHER ==
[~2020-09-15] MED LIST changes: +MECL25 PO; +MINIPRESS5 MG PO
[2020-09-15 19:27] LABS: BASOPHILS ABSOLUTE AUTO 0.07 K/mm3 (0.00-0.23); BASOPHILS PERCENT AUTO 1 % (0-2); EOSINOPHILS ABSOLUTE AUTO 0.02 K/mm3 (0.00-0.68); EOSINOPHILS PERCENT AUTO 0 % (0-6); Hematocrit 44.9 % (33.0-51.0); Hemoglobin 14.2 g/dL (11.5-16.0); IMMATURE GRAN ABSOLUTE AUTO 0.07 K/mm3 (0.00-0.10); IMMATURE GRAN PERCENT AUTO 1 % (0-1); LYMPHOCYTES ABSOLUTE AUTO 1.19 K/mm3 (0.84-5.20); LYMPHOCYTES PERCENT AUTO 15 % (21-46); MONOCYTES ABSOLUTE AUTO 0.49 K/mm3 (0.16-1.47); MONOCYTES PERCENT AUTO 6 % (4-13); Mean Corpuscular HGB 28.5 pg (26.0-34.0); Mean Corpuscular HGB Conc 31.6 g/dL (31.5-36.5); Mean Corpuscular Volume 90 fL (80-100); Mean Platelet Volume 11.1 fL (9.1-12.4); NEUTROPHILS ABSOLUTE AUTO 6.34 K/mm3 (1.96-9.15); NEUTROPHILS PERCENT AUTO 78 % (41-73); Platelet Count 294 K/mm3 (150-400); RDW Coefficient Variation 14.6 % (11.7-14.2); RDW Standard Deviation 47.9 fL (35.1-46.3); Red Blood Cell Count 4.99 M/mm3 (3.80-5.20); White Blood Cell Count 8.18 K/mm3 (4.00-11.30)
[2020-09-15 19:56] LABS: Alanine Aminotransfer (ALT/SGP 16 U/L (12-78); Albumin, Blood 3.7 g/dL (3.4-5.0); Albumin/Globulin Ratio 0.9 (0.8-1.8); Alk Phos 130 U/L (50-136); Anion Gap 3 mmol/L (6-16); Aspartate Aminotrans (AST/SGOT 13 U/L (12-37); Bilirubin, Total 0.3 mg/dL (0.1-1.0); Blood Urea Nitrogen 15 mg/dL (8-24); Bun/Creatinine Ratio 22.1 (12.0-20.0); CO2, Blood 27 mmol/L (21-32); Chloride, Blood 110 mmol/L (98-108); Creatinine, Blood 0.68 mg/dL (0.40-1.00); Glomerular Filtration Rate >60 (60-); Glucose, Blood 99 mg/dL (70-99); Potassium, Blood 4.1 mmol/L (3.5-5.5); Sodium, Blood 140 mmol/L (136-145); Total Protein, Blood 7.7 g/dL (6.4-8.2)
== END | disposition home or self-care (01) ==
LOC: LAB SHORT 18:00 → PLD 18:00
PROVIDERS: Internal Medicine Rheumatology
DX: L93.0 Discoid lupus erythematosus (principal)
CPT/HCPCS: 80053; 85025; 85651

== ENCOUNTER 2020-10-05 13:30 | Emergency (ER) | payer MEDICARE, OTHER ==
[~2020-10-05] VITALS: Ht 160 cm; Wt 79.4 kg
[~2020-10-05 13:30] MED LIST changes: -MECL25 PO; -MINIPRESS5 MG PO
[2020-10-05 14:35] LABS: BASOPHILS ABSOLUTE AUTO 0.06 K/mm3 (0.00-0.23); BASOPHILS PERCENT AUTO 1 % (0-2); EOSINOPHILS ABSOLUTE AUTO 0.01 K/mm3 (0.00-0.68); EOSINOPHILS PERCENT AUTO 0 % (0-6); Hematocrit 42.9 % (33.0-51.0); Hemoglobin 13.6 g/dL (11.5-16.0); IMMATURE GRAN ABSOLUTE AUTO 0.02 K/mm3 (0.00-0.10); IMMATURE GRAN PERCENT AUTO 0 % (0-1); LYMPHOCYTES ABSOLUTE AUTO 0.92 K/mm3 (0.84-5.20); LYMPHOCYTES PERCENT AUTO 12 % (21-46); MONOCYTES ABSOLUTE AUTO 0.52 K/mm3 (0.16-1.47); MONOCYTES PERCENT AUTO 7 % (4-13); Mean Corpuscular HGB Conc 31.7 g/dL (31.5-36.5); Mean Corpuscular Volume 89 fL (80-100); Mean Platelet Volume 10.6 fL (9.1-12.4); NEUTROPHILS ABSOLUTE AUTO 6.35 K/mm3 (1.96-9.15); NEUTROPHILS PERCENT AUTO 81 % (41-73); Platelet Count 260 K/mm3 (150-400); RDW Coefficient Variation 14.6 % (11.7-14.2); RDW Standard Deviation 47.1 fL (35.1-46.3); Red Blood Cell Count 4.85 M/mm3 (3.80-5.20); White Blood Cell Count 7.88 K/mm3 (4.00-11.30)
[2020-10-05 14:56] LABS: Alanine Aminotransfer (ALT/SGP 18 U/L (12-78); Albumin, Blood 3.8 g/dL (3.4-5.0); Albumin/Globulin Ratio 1.1 (0.8-1.8); Alk Phos 121 U/L (50-136); Anion Gap 3 mmol/L (6-16); Aspartate Aminotrans (AST/SGOT 14 U/L (12-37); Bilirubin, Total 0.4 mg/dL (0.1-1.0); Blood Urea Nitrogen 11 mg/dL (8-24); Bun/Creatinine Ratio 16.7 (12.0-20.0); CO2, Blood 25 mmol/L (21-32); Calcium, Blood 10.7 mg/dL (8.5-10.1); Chloride, Blood 111 mmol/L (98-108); Creatinine, Blood 0.66 mg/dL (0.40-1.00); Globulin, Blood 3.6 g/dL (2.2-4.0); Glomerular Filtration Rate >60 (60-); Glucose, Blood 109 mg/dL (70-99); Potassium, Blood 3.8 mmol/L (3.5-5.5); Sodium, Blood 139 mmol/L (136-145); Total Protein, Blood 7.4 g/dL (6.4-8.2); Troponin I 0.041 ng/mL (0.000-0.040)
[2020-10-05] MEDS ORDERED: MINIPRESS5 MG PO (15:44)
[2020-10-05] MEDS ORDERED: MECL25 PO (17:03)
== END 2020-10-05 17:13 | disposition home or self-care (01) ==
LOC: ER 13:30
PROVIDERS: Physician Assistant
DX: R42 Dizziness and giddiness (principal); Z79.82 Long term (current) use of aspirin; Z79.899 Other long term (current) drug therapy
CPT/HCPCS: 36415; 71045; 80053; 83880; 84484; 85025; 93005; 93010; 99284-25; A9270

== ENCOUNTER → 2020-10-06 | Outpatient (CLI) | payer MEDICARE, OTHER ==
[~2020-10-06] MED LIST changes: +MECL25 PO; +MINIPRESS5 MG PO
[2020-10-06 19:24] LABS: Creatinine Urine 73.3 mg/dL (27.00-270.00); Protein, Urine Quantitative 14.3 mg/dL (0.0-11.9)
[2020-10-06 19:27] LABS: Microalbumin, Urine Quant. 27.2 mg/L (0.000-20.000)
== END | disposition home or self-care (01) ==
LOC: LAB UCHC 08:00 → LAB SHORT 08:00
PROVIDERS: Internal Medicine Nephrology
DX: E55.9 Vitamin D deficiency, unspecified (principal); E78.00 Pure hypercholesterolemia, unspecified; N25.81 Secondary hyperparathyroidism of renal origin; G60.9 Hereditary and idiopathic neuropathy, unspecified; R76.9 Abnormal immunological finding in serum, unspecified; R94.5 Abnormal results of liver function studies; R94.6 Abnormal results of thyroid function studies; I10 Essential (primary) hypertension
CPT/HCPCS: 81050; 82043; 82570; 84156

== ENCOUNTER → 2021-03-02 | Outpatient (CLI) | payer MEDICARE, OTHER ==
[~2021-03-02] MED LIST changes: +AIMOVIG AU70 MG/1 ML SQ; +CATAPRES0.1 MG PO
[2021-03-02 19:07] LABS: BASOPHILS ABSOLUTE AUTO 0.08 K/mm3 (0.00-0.23); BASOPHILS PERCENT AUTO 1 % (0-2); EOSINOPHILS ABSOLUTE AUTO 0.09 K/mm3 (0.00-0.68); EOSINOPHILS PERCENT AUTO 1 % (0-6); Hematocrit 41.5 % (33.0-51.0); Hemoglobin 12.9 g/dL (11.5-16.0); IMMATURE GRAN ABSOLUTE AUTO 0.04 K/mm3 (0.00-0.10); IMMATURE GRAN PERCENT AUTO 1 % (0-1); LYMPHOCYTES ABSOLUTE AUTO 1.54 K/mm3 (0.84-5.20); LYMPHOCYTES PERCENT AUTO 18 % (21-46); MONOCYTES ABSOLUTE AUTO 0.59 K/mm3 (0.16-1.47); MONOCYTES PERCENT AUTO 7 % (4-13); Mean Corpuscular HGB 28.8 pg (26.0-34.0); Mean Corpuscular HGB Conc 31.1 g/dL (31.5-36.5); Mean Corpuscular Volume 93 fL (80-100); Mean Platelet Volume 10.8 fL (9.1-12.4); NEUTROPHILS ABSOLUTE AUTO 6.48 K/mm3 (1.96-9.15); NEUTROPHILS PERCENT AUTO 73 % (41-73); Platelet Count 283 K/mm3 (150-400); RDW Coefficient Variation 15.3 % (11.7-14.2); RDW Standard Deviation 52.1 fL (35.1-46.3); Red Blood Cell Count 4.48 M/mm3 (3.80-5.20); White Blood Cell Count 8.82 K/mm3 (4.00-11.30)
[2021-03-02 19:11] LABS: Alanine Aminotransfer (ALT/SGP 22 U/L (12-78); Albumin, Blood 3.3 g/dL (3.4-5.0); Alk Phos 104 U/L (50-136); Anion Gap 4 mmol/L (6-16); Aspartate Aminotrans (AST/SGOT 13 U/L (12-37); Bilirubin, Total 0.3 mg/dL (0.1-1.0); Blood Urea Nitrogen 10 mg/dL (8-24); Bun/Creatinine Ratio 13.1 (12.0-20.0); CO2, Blood 29 mmol/L (21-32); Calcium, Blood 10.2 mg/dL (8.5-10.1); Chloride, Blood 108 mmol/L (98-108); Creatinine, Blood 0.76 mg/dL (0.40-1.00); Globulin, Blood 3.4 g/dL (2.2-4.0); Glomerular Filtration Rate >60 (60-); Glucose, Blood 107 mg/dL (70-99); Sodium, Blood 141 mmol/L (136-145); Total Protein, Blood 6.7 g/dL (6.4-8.2)
== END | disposition home or self-care (01) ==
LOC: LAB 16:10 → LAB SHORT 16:10
PROVIDERS: Internal Medicine Rheumatology
DX: L93.0 Discoid lupus erythematosus (principal)
CPT/HCPCS: 80053; 85025; 85651

== ENCOUNTER → 2021-09-19 | Outpatient (CLI) | payer MEDICARE, OTHER | END | disposition home or self-care (01) | LOC: LAB SHORT 11:55 | DX: R35.0 Frequency of micturition (principal) | CPT/HCPCS: 87086 ==

== ENCOUNTER → 2021-09-21 | Outpatient (CLI) | payer MEDICARE, OTHER ==
[2021-09-21 13:33] LABS: BASOPHILS ABSOLUTE AUTO 0.07 K/mm3 (0.00-0.23); BASOPHILS PERCENT AUTO 1 % (0-2); EOSINOPHILS ABSOLUTE AUTO 0.14 K/mm3 (0.00-0.68); EOSINOPHILS PERCENT AUTO 2 % (0-6); Hematocrit 43.2 % (33.0-51.0); Hemoglobin 13.8 g/dL (11.5-16.0); IMMATURE GRAN ABSOLUTE AUTO 0.01 K/mm3 (0.00-0.10); IMMATURE GRAN PERCENT AUTO 0 % (0-1); LYMPHOCYTES ABSOLUTE AUTO 1.36 K/mm3 (0.84-5.20); LYMPHOCYTES PERCENT AUTO 21 % (21-46); MONOCYTES ABSOLUTE AUTO 0.59 K/mm3 (0.16-1.47); MONOCYTES PERCENT AUTO 9 % (4-13); Mean Corpuscular HGB 31.2 pg (26.0-34.0); Mean Corpuscular HGB Conc 31.9 g/dL (31.5-36.5); Mean Corpuscular Volume 98 fL (80-100); Mean Platelet Volume 11.4 fL (9.1-12.4); NEUTROPHILS ABSOLUTE AUTO 4.29 K/mm3 (1.96-9.15); NEUTROPHILS PERCENT AUTO 66 % (41-73); Platelet Count 195 K/mm3 (150-400); RDW Coefficient Variation 13.3 % (11.7-14.2); Red Blood Cell Count 4.42 M/mm3 (3.80-5.20); White Blood Cell Count 6.46 K/mm3 (4.00-11.30)
[2021-09-21 13:54] LABS: Albumin, Blood 3.5 g/dL (3.4-5.0); Albumin/Globulin Ratio 1.5 (0.8-1.8); Bilirubin, Total 0.4 mg/dL (0.1-1.0); Bun/Creatinine Ratio 21.4 (12.0-20.0); Calcium, Blood 10.9 mg/dL (8.5-10.1); Creatinine, Blood 0.66 mg/dL (0.40-1.00); Globulin, Blood 2.3 g/dL (2.2-4.0); Potassium, Blood 4.1 mmol/L (3.5-5.5); Total Protein, Blood 5.8 g/dL (6.4-8.2)
== END | disposition home or self-care (01) ==
LOC: LAB SHORT 12:12
PROVIDERS: Internal Medicine Rheumatology
DX: L93.0 Discoid lupus erythematosus (principal)
CPT/HCPCS: 80053; 85025; 85651

== ENCOUNTER 2021-10-01 12:39 | Emergency (ER) | payer MEDICARE, OTHER ==
[~2021-10-01] VITALS: Ht 157.5 cm; Wt 77.1 kg
[2021-10-01] MEDS ORDERED: CYCL10 PO (15:00)
[2021-10-01] MEDS ORDERED: DIAZ2 PO (15:00)
== END 2021-10-01 15:10 | disposition home or self-care (01) ==
LOC: ER 12:39
DX: M25.552 Pain in left hip (principal); M54.50 Low back pain, unspecified; G89.29 Other chronic pain; I10 Essential (primary) hypertension; E11.9 Type 2 diabetes mellitus without complications; F41.9 Anxiety disorder, unspecified; F17.210 Nicotine dependence, cigarettes, uncomplicated; E78.5 Hyperlipidemia, unspecified; J45.909 Unspecified asthma, uncomplicated; M32.9 Systemic lupus erythematosus, unspecified; Z79.899 Other long term (current) drug therapy; Z88.5 Allergy status to narcotic agent; Z88.0 Allergy status to penicillin; Z88.8 Allergy status to other drugs, medicaments and biological substances; Z88.1 Allergy status to other antibiotic agents; Z91.038 Other insect allergy status
CPT/HCPCS: 72100; 73502; A9270

== ENCOUNTER 2022-02-26 22:03 | Emergency (ER) | payer MEDICARE, OTHER ==
[~2022-02-26] VITALS: Ht 160 cm; Wt 78.6 kg
[~2022-02-26 22:03] MED LIST changes: +DIAZ2 PO
[2022-02-26 23:46] LABS: BASOPHILS ABSOLUTE AUTO 0.08 K/mm3 (0.00-0.23); BASOPHILS PERCENT AUTO 1 % (0-2); EOSINOPHILS ABSOLUTE AUTO 0.14 K/mm3 (0.00-0.68); EOSINOPHILS PERCENT AUTO 2 % (0-6); Hematocrit 44.8 % (33.0-51.0); IMMATURE GRAN ABSOLUTE AUTO 0.02 K/mm3 (0.00-0.10); IMMATURE GRAN PERCENT AUTO 0 % (0-1); LYMPHOCYTES ABSOLUTE AUTO 1.97 K/mm3 (0.84-5.20); LYMPHOCYTES PERCENT AUTO 27 % (21-46); MONOCYTES ABSOLUTE AUTO 0.58 K/mm3 (0.16-1.47); MONOCYTES PERCENT AUTO 8 % (4-13); Mean Corpuscular HGB 31.4 pg (26.0-34.0); Mean Corpuscular HGB Conc 31.3 g/dL (31.5-36.5); Mean Corpuscular Volume 100 fL (80-100); Mean Platelet Volume 10.4 fL (9.1-12.4); NEUTROPHILS ABSOLUTE AUTO 4.61 K/mm3 (1.96-9.15); NEUTROPHILS PERCENT AUTO 62 % (41-73); Platelet Count 186 K/mm3 (150-400); RDW Coefficient Variation 12.6 % (11.7-14.2); RDW Standard Deviation 46.8 fL (35.1-46.3); Red Blood Cell Count 4.46 M/mm3 (3.80-5.20)
[2022-02-27 00:11] LABS: Albumin, Blood 3.7 g/dL (3.4-5.0); Albumin/Globulin Ratio 1.3 (0.8-1.8); Bilirubin, Total 0.4 mg/dL (0.1-1.0); Bun/Creatinine Ratio 27.5 (12.0-20.0); Calcium, Blood 10.4 mg/dL (8.5-10.1); Creatinine, Blood 0.95 mg/dL (0.40-1.00); Globulin, Blood 2.8 g/dL (2.2-4.0); Potassium, Blood 3.6 mmol/L (3.5-5.5); Thyroid Stimulating Hormone 0.833 uIU/mL (0.360-4.800); Total Protein, Blood 6.5 g/dL (6.4-8.2)
[2022-02-27 00:50] LABS: Source, Urine Voided
[2022-02-27 00:53] LABS: Bilirubin, Urine Neg (Neg); Blood, Urine 4+ (Neg); Glucose Qualitative, Urine Neg (Neg); Ketones, Urine 3+ (Neg); Leukocyte Esterase, Urine 1+ (Neg); Nitrite, Urine Neg (Neg); Protein, Urine 2+ (Neg); Urobilinogen, Urine NORM (Normal)
[2022-02-27 01:23] LABS: Appearance, Urine Hazy (Clear); Color, Urine Yellow (P-Yellow)
[2022-02-27 01:57] LABS: Bacteria Mod /hpf; Mucus Light (0-Heavy); Squamous Epithelial Cells Mod /hpf (Few)
[2022-02-27 02:44] LABS: Influenza A, PCR NEGATIVE (NEGATIVE); Influenza B, PCR NEGATIVE (NEGATIVE); Resp Syncytial Virus, PCR NEGATIVE (NEGATIVE); SARS-Cov-2 (COVID-19) PCR, MMC NEGATIVE (NEGATIVE)
[2022-02-27] MEDS ORDERED: Macrobid 100 M100 MG PO (03:20)
== END 2022-02-27 03:45 | disposition home or self-care (01) ==
LOC: ER 22:03
PROVIDERS: Emergency Medicine
DX: N39.0 Urinary tract infection, site not specified (principal); R53.83 Other fatigue; E11.9 Type 2 diabetes mellitus without complications; F17.210 Nicotine dependence, cigarettes, uncomplicated; Z88.0 Allergy status to penicillin; Z88.8 Allergy status to other drugs, medicaments and biological substances; Z91.030 Bee allergy status; Z79.899 Other long term (current) drug therapy
CPT/HCPCS: 0241U; 36415; 71045; 80053; 81001; 84443; 84484; 85025; 93005; 93010; A9270; J7030

== ENCOUNTER 2022-04-10 16:28 | Emergency (ER) | payer MEDICARE, OTHER ==
[~2022-04-10] VITALS: Ht 160 cm; Wt 74.8 kg
[~2022-04-10 16:28] MED LIST changes: +Macrobid 100 M100 MG PO
[2022-04-10 17:29] LABS: BASOPHILS ABSOLUTE AUTO 0.06 K/mm3 (0.00-0.23); BASOPHILS PERCENT AUTO 1 % (0-2); EOSINOPHILS ABSOLUTE AUTO 0.17 K/mm3 (0.00-0.68); EOSINOPHILS PERCENT AUTO 2 % (0-6); Hematocrit 38.5 % (33.0-51.0); Hemoglobin 12.4 g/dL (11.5-16.0); IMMATURE GRAN ABSOLUTE AUTO 0.02 K/mm3 (0.00-0.10); IMMATURE GRAN PERCENT AUTO 0 % (0-1); LYMPHOCYTES PERCENT AUTO 24 % (21-46); MONOCYTES ABSOLUTE AUTO 0.66 K/mm3 (0.16-1.47); MONOCYTES PERCENT AUTO 8 % (4-13); Mean Corpuscular HGB 31.9 pg (26.0-34.0); Mean Corpuscular HGB Conc 32.2 g/dL (31.5-36.5); Mean Corpuscular Volume 99 fL (80-100); NEUTROPHILS ABSOLUTE AUTO 5.05 K/mm3 (1.96-9.15); NEUTROPHILS PERCENT AUTO 64 % (41-73); Platelet Count 215 K/mm3 (150-400); RDW Coefficient Variation 13.4 % (11.7-14.2); RDW Standard Deviation 48.9 fL (35.1-46.3); Red Blood Cell Count 3.89 M/mm3 (3.80-5.20); White Blood Cell Count 7.86 K/mm3 (4.00-11.30)
[2022-04-10 17:46] LABS: Albumin, Blood 3.1 g/dL (3.4-5.0); Albumin/Globulin Ratio 1.2 (0.8-1.8); Bilirubin, Total 0.4 mg/dL (0.1-1.0); Bun/Creatinine Ratio 21.1 (12.0-20.0); Calcium, Blood 9.5 mg/dL (8.5-10.1); Creatinine, Blood 0.66 mg/dL (0.40-1.00); Globulin, Blood 2.6 g/dL (2.2-4.0); Total Protein, Blood 5.7 g/dL (6.4-8.2)
== END 2022-04-10 21:04 | disposition home or self-care (01) ==
LOC: ER 16:28
PROVIDERS: Emergency Medicine
DX: R07.89 Other chest pain (principal); E11.9 Type 2 diabetes mellitus without complications; I10 Essential (primary) hypertension; I25.2 Old myocardial infarction; F17.210 Nicotine dependence, cigarettes, uncomplicated; Z88.0 Allergy status to penicillin; Z88.1 Allergy status to other antibiotic agents; Z88.8 Allergy status to other drugs, medicaments and biological substances; Z91.030 Bee allergy status; Z79.899 Other long term (current) drug therapy
CPT/HCPCS: 71046; 80053; 84484; 85025; 93005; 93010

== ENCOUNTER 2022-04-13 12:47 | Emergency (ER) | payer MEDICARE, OTHER ==
[~2022-04-13] VITALS: Ht 160 cm; Wt 73.9 kg
[2022-04-13 15:39] LABS: BASOPHILS ABSOLUTE AUTO 0.06 K/mm3 (0.00-0.23); BASOPHILS PERCENT AUTO 1 % (0-2); EOSINOPHILS ABSOLUTE AUTO 0.09 K/mm3 (0.00-0.68); EOSINOPHILS PERCENT AUTO 1 % (0-6); Hematocrit 43.5 % (33.0-51.0); Hemoglobin 14.4 g/dL (11.5-16.0); IMMATURE GRAN ABSOLUTE AUTO 0.03 K/mm3 (0.00-0.10); IMMATURE GRAN PERCENT AUTO 0 % (0-1); LYMPHOCYTES ABSOLUTE AUTO 1.19 K/mm3 (0.84-5.20); LYMPHOCYTES PERCENT AUTO 14 % (21-46); MONOCYTES ABSOLUTE AUTO 0.46 K/mm3 (0.16-1.47); MONOCYTES PERCENT AUTO 6 % (4-13); Mean Corpuscular HGB 32.1 pg (26.0-34.0); Mean Corpuscular HGB Conc 33.1 g/dL (31.5-36.5); Mean Corpuscular Volume 97 fL (80-100); Mean Platelet Volume 11.6 fL (9.1-12.4); NEUTROPHILS ABSOLUTE AUTO 6.59 K/mm3 (1.96-9.15); NEUTROPHILS PERCENT AUTO 78 % (41-73); Platelet Count 255 K/mm3 (150-400); RDW Coefficient Variation 13.2 % (11.7-14.2); RDW Standard Deviation 47.6 fL (35.1-46.3); Red Blood Cell Count 4.48 M/mm3 (3.80-5.20); White Blood Cell Count 8.42 K/mm3 (4.00-11.30)
[2022-04-13 15:59] LABS: Albumin, Blood 3.6 g/dL (3.4-5.0); Albumin/Globulin Ratio 1.2 (0.8-1.8); Bilirubin, Total 0.3 mg/dL (0.1-1.0); Bun/Creatinine Ratio 22.7 (12.0-20.0); Calcium, Blood 10.7 mg/dL (8.5-10.1); Creatinine, Blood 0.57 mg/dL (0.40-1.00); Globulin, Blood 3.1 g/dL (2.2-4.0); Potassium, Blood 4.3 mmol/L (3.5-5.5); Total Protein, Blood 6.7 g/dL (6.4-8.2)
== END 2022-04-13 16:46 | disposition home or self-care (01) ==
LOC: ER 12:47
PROVIDERS: Emergency Medicine
DX: R07.9 Chest pain, unspecified (principal); I10 Essential (primary) hypertension; E11.9 Type 2 diabetes mellitus without complications; J45.909 Unspecified asthma, uncomplicated; F17.210 Nicotine dependence, cigarettes, uncomplicated
CPT/HCPCS: 36415; 71046; 80053; 84484; 85025; 93005; 93010; A9270

== ENCOUNTER 2022-05-12 18:46 | Emergency (ER) | payer OTHER ==
[~2022-05-12] VITALS: Ht 160 cm; Wt 77.1 kg
[2022-05-12] MEDS ORDERED: PRED20 PO (20:32)
== END 2022-05-12 20:56 | disposition home or self-care (01) ==
LOC: ER 18:46
DX: M25.552 Pain in left hip (principal); G89.29 Other chronic pain; S70.02XA Contusion of left hip, initial encounter; E11.9 Type 2 diabetes mellitus without complications; I10 Essential (primary) hypertension; I25.2 Old myocardial infarction; W19.XXXA Unspecified fall, initial encounter; Z91.030 Bee allergy status; Z88.0 Allergy status to penicillin; Z88.8 Allergy status to other drugs, medicaments and biological substances
CPT/HCPCS: 73502; J2270; J2405

== ENCOUNTER 2022-06-15 17:14 | Emergency (ER) | payer OTHER ==
[~2022-06-15] VITALS: Ht 160 cm; Wt 72.6 kg
[~2022-06-15 17:14] MED LIST changes: +PRED20 PO
[2022-06-15 20:24] LABS: BASOPHILS ABSOLUTE AUTO 0.04 K/mm3 (0.00-0.23); BASOPHILS PERCENT AUTO 1 % (0-2); EOSINOPHILS PERCENT AUTO 0 % (0-6); Hematocrit 41.5 % (33.0-51.0); Hemoglobin 13.4 g/dL (11.5-16.0); IMMATURE GRAN ABSOLUTE AUTO 0.06 K/mm3 (0.00-0.10); IMMATURE GRAN PERCENT AUTO 2 % (0-1); LYMPHOCYTES ABSOLUTE AUTO 1.05 K/mm3 (0.84-5.20); LYMPHOCYTES PERCENT AUTO 38 % (21-46); MONOCYTES ABSOLUTE AUTO 0.57 K/mm3 (0.16-1.47); MONOCYTES PERCENT AUTO 20 % (4-13); Mean Corpuscular HGB 31.6 pg (26.0-34.0); Mean Corpuscular HGB Conc 32.3 g/dL (31.5-36.5); Mean Corpuscular Volume 98 fL (80-100); Mean Platelet Volume 10.1 fL (9.1-12.4); NEUTROPHILS ABSOLUTE AUTO 1.07 K/mm3 (1.96-9.15); NEUTROPHILS PERCENT AUTO 38 % (41-73); Platelet Count 277 K/mm3 (150-400); RDW Coefficient Variation 13.5 % (11.7-14.2); RDW Standard Deviation 48.8 fL (35.1-46.3); Red Blood Cell Count 4.24 M/mm3 (3.80-5.20); White Blood Cell Count 2.79 K/mm3 (4.00-11.30)
[2022-06-15 20:44] LABS: Albumin, Blood 3.7 g/dL (3.4-5.0); Albumin/Globulin Ratio 1.1 (0.8-1.8); Bilirubin, Total 0.4 mg/dL (0.1-1.0); Bun/Creatinine Ratio 16.6 (12.0-20.0); Calcium, Blood 11.2 mg/dL (8.5-10.1); Creatinine, Blood 0.6 mg/dL (0.40-1.00); Globulin, Blood 3.3 g/dL (2.2-4.0); Potassium, Blood 4.4 mmol/L (3.5-5.5)
== END 2022-06-16 00:39 | disposition home or self-care (01) ==
LOC: ER 17:14
PROVIDERS: Student in an Organized Health Care Education/Training Program
DX: I10 Essential (primary) hypertension (principal); R07.89 Other chest pain; E11.9 Type 2 diabetes mellitus without complications; I25.2 Old myocardial infarction; Z91.030 Bee allergy status; Z88.0 Allergy status to penicillin; Z88.1 Allergy status to other antibiotic agents; Z88.8 Allergy status to other drugs, medicaments and biological substances; Z79.899 Other long term (current) drug therapy; Z79.52 Long term (current) use of systemic steroids
CPT/HCPCS: 80053; 84484; 85025; 93005; 93010; 99284-25; A9270

== ENCOUNTER 2022-07-14 19:44 | Emergency (ER) | payer OTHER ==
[~2022-07-14] VITALS: Ht 160 cm; Wt 74.8 kg
[2022-07-14 20:21] LABS: BASOPHILS ABSOLUTE AUTO 0.04 K/mm3 (0.00-0.23); BASOPHILS PERCENT AUTO 1 % (0-2); EOSINOPHILS ABSOLUTE AUTO 0.13 K/mm3 (0.00-0.68); EOSINOPHILS PERCENT AUTO 2 % (0-6); Hematocrit 39.8 % (33.0-51.0); Hemoglobin 12.4 g/dL (11.5-16.0); IMMATURE GRAN ABSOLUTE AUTO 0.03 K/mm3 (0.00-0.10); IMMATURE GRAN PERCENT AUTO 0 % (0-1); LYMPHOCYTES PERCENT AUTO 26 % (21-46); MONOCYTES ABSOLUTE AUTO 0.58 K/mm3 (0.16-1.47); MONOCYTES PERCENT AUTO 8 % (4-13); Mean Corpuscular HGB 31.3 pg (26.0-34.0); Mean Corpuscular HGB Conc 31.2 g/dL (31.5-36.5); Mean Corpuscular Volume 101 fL (80-100); NEUTROPHILS ABSOLUTE AUTO 4.49 K/mm3 (1.96-9.15); NEUTROPHILS PERCENT AUTO 64 % (41-73); Platelet Count 244 K/mm3 (150-400); RDW Coefficient Variation 14.6 % (11.7-14.2); RDW Standard Deviation 55.2 fL (35.1-46.3); Red Blood Cell Count 3.96 M/mm3 (3.80-5.20); White Blood Cell Count 7.07 K/mm3 (4.00-11.30)
[2022-07-14 20:51] LABS: Albumin, Blood 3.4 g/dL (3.4-5.0); Albumin/Globulin Ratio 1.1 (0.8-1.8); Bilirubin, Total 0.4 mg/dL (0.1-1.0); Bun/Creatinine Ratio 18.7 (12.0-20.0); Creatinine, Blood 1.07 mg/dL (0.40-1.00); Globulin, Blood 3.2 g/dL (2.2-4.0); Potassium, Blood 3.7 mmol/L (3.5-5.5); Total Protein, Blood 6.6 g/dL (6.4-8.2)
== END 2022-07-14 23:26 | disposition home or self-care (01) ==
LOC: ER 19:44
PROVIDERS: Student in an Organized Health Care Education/Training Program
DX: R07.89 Other chest pain (principal); E11.9 Type 2 diabetes mellitus without complications; I10 Essential (primary) hypertension; Z88.0 Allergy status to penicillin; Z91.030 Bee allergy status; Z88.8 Allergy status to other drugs, medicaments and biological substances; Z79.899 Other long term (current) drug therapy; Z79.52 Long term (current) use of systemic steroids; Z87.891 Personal history of nicotine dependence
CPT/HCPCS: 36415; 71046; 80053; 83690; 83880; 84484; 85025; 93005; 93010; 99285-25

== ENCOUNTER 2022-07-25 16:32 | Emergency (ER) | payer OTHER ==
[~2022-07-25] VITALS: Ht 160 cm; Wt 72.6 kg
[2022-07-25 16:42] VITALS: BP 164/101
== END 2022-07-25 16:51 | disposition left against medical advice (07) ==
LOC: ER 16:32
DX: R07.9 Chest pain, unspecified (principal); R06.02 Shortness of breath; Z20.822 Contact with and (suspected) exposure to COVID-19
CPT/HCPCS: 99281

== ENCOUNTER → 2022-08-24 | Outpatient (CLI) | payer OTHER | END | disposition home or self-care (01) | LOC: LAB SHORT 18:35 → LAB 18:35 | DX: N30.01 Acute cystitis with hematuria (principal) | CPT/HCPCS: 87086; 87147 ==

== ENCOUNTER → 2022-09-05 | Outpatient (CLI) | payer OTHER | END | disposition home or self-care (01) | LOC: LAB 14:50 → LAB SHORT 14:50 | DX: N39.0 Urinary tract infection, site not specified (principal) | CPT/HCPCS: 87086; 87147 ==

== ENCOUNTER → 2022-09-26 | Outpatient (CLI) | payer OTHER ==
[~2022-09-26] MED LIST changes: +Chantix1 MG PO; +GABA300 PO; +NITR100CA PO
[2022-09-26 18:02] LABS: BASOPHILS ABSOLUTE AUTO 0.06 K/mm3 (0.00-0.23); BASOPHILS PERCENT AUTO 1 % (0-2); EOSINOPHILS ABSOLUTE AUTO 0.13 K/mm3 (0.00-0.68); EOSINOPHILS PERCENT AUTO 2 % (0-6); Hematocrit 39.4 % (33.0-51.0); Hemoglobin 12.8 g/dL (11.5-16.0); IMMATURE GRAN ABSOLUTE AUTO 0.03 K/mm3 (0.00-0.10); IMMATURE GRAN PERCENT AUTO 1 % (0-1); LYMPHOCYTES ABSOLUTE AUTO 1.36 K/mm3 (0.84-5.20); LYMPHOCYTES PERCENT AUTO 21 % (21-46); MONOCYTES ABSOLUTE AUTO 0.48 K/mm3 (0.16-1.47); MONOCYTES PERCENT AUTO 8 % (4-13); Mean Corpuscular HGB Conc 32.5 g/dL (31.5-36.5); Mean Corpuscular Volume 99 fL (80-100); Mean Platelet Volume 10.4 fL (9.1-12.4); NEUTROPHILS ABSOLUTE AUTO 4.33 K/mm3 (1.96-9.15); NEUTROPHILS PERCENT AUTO 68 % (41-73); Platelet Count 177 K/mm3 (150-400); RDW Coefficient Variation 13.5 % (11.7-14.2); RDW Standard Deviation 49.4 fL (35.1-46.3); White Blood Cell Count 6.39 K/mm3 (4.00-11.30)
[2022-09-26 18:21] LABS: Albumin, Blood 3.5 g/dL (3.4-5.0); Albumin/Globulin Ratio 1.2 (0.8-1.8); Bilirubin, Total 0.4 mg/dL (0.1-1.0); Bun/Creatinine Ratio 15.7 (12.0-20.0); Calcium, Blood 11.1 mg/dL (8.5-10.1); Creatinine, Blood 1.02 mg/dL (0.40-1.00); Potassium, Blood 4.3 mmol/L (3.5-5.5); Thyroid Stimulating Hormone 0.553 uIU/mL (0.360-4.800); Total Protein, Blood 6.5 g/dL (6.4-8.2)
== END | disposition home or self-care (01) ==
LOC: LAB 17:56 → LAB SHORT 17:56
PROVIDERS: Physician Assistant Medical
DX: R07.9 Chest pain, unspecified (principal); R53.83 Other fatigue; R42 Dizziness and giddiness
CPT/HCPCS: 80053; 84443; 84484; 85025

== ENCOUNTER 2022-10-26 18:37 | Emergency (ER) | payer OTHER ==
[~2022-10-26] VITALS: Ht 160 cm; Wt 72.1 kg
[~2022-10-26 18:37] MED LIST changes: -Cipro500 MG PO; -FLAGYL500 M1 PO
[2022-10-26 18:45] VITALS: BP 111/84
[2022-10-26] MEDS ORDERED: Cipro500 MG PO (20:45)
[2022-10-26] MEDS ORDERED: FLAGYL500 M1 PO (20:45)
== END 2022-10-26 21:05 | disposition home or self-care (01) ==
LOC: ER 18:37
DX: K57.32 Diverticulitis of large intestine without perforation or abscess without bleeding (principal); K91.873 Postprocedural seroma of a digestive system organ or structure following other procedure; E11.9 Type 2 diabetes mellitus without complications; I10 Essential (primary) hypertension; Z87.442 Personal history of urinary calculi; E78.5 Hyperlipidemia, unspecified; I25.2 Old myocardial infarction; J45.909 Unspecified asthma, uncomplicated; Z87.891 Personal history of nicotine dependence; Z88.0 Allergy status to penicillin; Z88.1 Allergy status to other antibiotic agents; Z91.030 Bee allergy status; Z88.8 Allergy status to other drugs, medicaments and biological substances; Z79.890 Hormone replacement therapy; Z79.899 Other long term (current) drug therapy; Z88.6 Allergy status to analgesic agent; R10.31 Right lower quadrant pain; K59.00 Constipation, unspecified; I31.39 Other pericardial effusion (noninflammatory); K63.89 Other specified diseases of intestine; K83.8 Other specified diseases of biliary tract; K86.89 Other specified diseases of pancreas; K57.30 Diverticulosis of large intestine without perforation or abscess without bleeding; N28.1 Cyst of kidney, acquired; K68.9 Other disorders of retroperitoneum; Z90.710 Acquired absence of both cervix and uterus; Z96.641 Presence of right artificial hip joint; Z90.49 Acquired absence of other specified parts of digestive tract; Z98.1 Arthrodesis status; Z98.890 Other specified postprocedural states
CPT/HCPCS: 74177; 99283; A9270; Q9967

== ENCOUNTER → 2022-10-26 | Outpatient (CLI) | payer OTHER ==
[~2022-10-26] MED LIST changes: +Cipro500 MG PO; +FLAGYL500 M1 PO; +MAGNESIUM OXID500 MG PO
[2022-10-26 14:38] LABS: Albumin, Blood 3.6 g/dL (3.4-5.0); Albumin/Globulin Ratio 1.1 (0.8-1.8); Bilirubin, Total 0.3 mg/dL (0.1-1.0); Bun/Creatinine Ratio 15.9 (12.0-20.0); Calcium, Blood 9.8 mg/dL (8.5-10.1); Creatinine, Blood 0.88 mg/dL (0.40-1.00); Globulin, Blood 3.2 g/dL (2.2-4.0); Potassium, Blood 3.6 mmol/L (3.5-5.5); Total Protein, Blood 6.8 g/dL (6.4-8.2)
== END | disposition home or self-care (01) ==
LOC: LAB 14:22 → LAB SHORT 14:22
PROVIDERS: Physician Assistant Surgical
DX: R10.31 Right lower quadrant pain (principal)
CPT/HCPCS: 80053

== ENCOUNTER 2022-10-28 09:04 | Emergency (ER) | payer OTHER ==
[~2022-10-28] VITALS: Ht 160 cm; Wt 69.8 kg
[~2022-10-28 09:04] MED LIST changes: +Cipro500 MG PO; +FLAGYL500 M1 PO
[2022-10-28 09:31] VITALS: BP 179/107
== END 2022-10-28 09:58 | disposition home or self-care (01) ==
LOC: ER 09:04
DX: U07.1 COVID-19 (principal); I10 Essential (primary) hypertension; E11.9 Type 2 diabetes mellitus without complications; Z91.09 Other allergy status, other than to drugs and biological substances; Z91.030 Bee allergy status; Z88.0 Allergy status to penicillin; Z88.8 Allergy status to other drugs, medicaments and biological substances; Z79.899 Other long term (current) drug therapy
CPT/HCPCS: 99282

== ENCOUNTER → 2022-11-14 | Outpatient (CLI) | payer OTHER ==
[2022-11-14 19:30] LABS: BASOPHILS ABSOLUTE AUTO 0.06 K/mm3 (0.00-0.23); BASOPHILS PERCENT AUTO 1 % (0-2); EOSINOPHILS ABSOLUTE AUTO 0.02 K/mm3 (0.00-0.68); EOSINOPHILS PERCENT AUTO 0 % (0-6); Hematocrit 40.4 % (33.0-51.0); IMMATURE GRAN ABSOLUTE AUTO 0.01 K/mm3 (0.00-0.10); IMMATURE GRAN PERCENT AUTO 0 % (0-1); LYMPHOCYTES ABSOLUTE AUTO 1.06 K/mm3 (0.84-5.20); LYMPHOCYTES PERCENT AUTO 18 % (21-46); MONOCYTES ABSOLUTE AUTO 0.54 K/mm3 (0.16-1.47); MONOCYTES PERCENT AUTO 9 % (4-13); Mean Corpuscular HGB 32.3 pg (26.0-34.0); Mean Corpuscular HGB Conc 32.2 g/dL (31.5-36.5); Mean Corpuscular Volume 100 fL (80-100); NEUTROPHILS ABSOLUTE AUTO 4.06 K/mm3 (1.96-9.15); NEUTROPHILS PERCENT AUTO 71 % (41-73); Platelet Count 380 K/mm3 (150-400); RDW Coefficient Variation 12.9 % (11.7-14.2); RDW Standard Deviation 47.8 fL (35.1-46.3); Red Blood Cell Count 4.03 M/mm3 (3.80-5.20); White Blood Cell Count 5.75 K/mm3 (4.00-11.30)
[2022-11-14 19:41] LABS: Albumin, Blood 3.3 g/dL (3.4-5.0); Albumin/Globulin Ratio 0.9 (0.8-1.8); Bilirubin, Total 0.5 mg/dL (0.1-1.0); Bun/Creatinine Ratio 25.2 (12.0-20.0); Calcium, Blood 10.7 mg/dL (8.5-10.1); Creatinine, Blood 0.44 mg/dL (0.40-1.00); Globulin, Blood 3.8 g/dL (2.2-4.0); Potassium, Blood 3.8 mmol/L (3.5-5.5); Total Protein, Blood 7.1 g/dL (6.4-8.2)
== END | disposition home or self-care (01) ==
LOC: LAB 16:51 → LAB SHORT 16:51
PROVIDERS: Family Medicine
DX: R74.01 Elevation of levels of liver transaminase levels (principal)
CPT/HCPCS: 80053; 85025

== ENCOUNTER 2022-11-16 16:07 | Inpatient (IN) | payer OTHER ==
[~2022-11-16] VITALS: Ht 160 cm; Wt 73.4 kg
[2022-11-16 18:54] LABS: BASOPHILS ABSOLUTE AUTO 0.06 K/mm3 (0.00-0.23); BASOPHILS PERCENT AUTO 1 % (0-2); EOSINOPHILS ABSOLUTE AUTO 0.07 K/mm3 (0.00-0.68); EOSINOPHILS PERCENT AUTO 1 % (0-6); Hematocrit 39.4 % (33.0-51.0); Hemoglobin 12.8 g/dL (11.5-16.0); IMMATURE GRAN ABSOLUTE AUTO 0.03 K/mm3 (0.00-0.10); IMMATURE GRAN PERCENT AUTO 0 % (0-1); LYMPHOCYTES ABSOLUTE AUTO 1.92 K/mm3 (0.84-5.20); LYMPHOCYTES PERCENT AUTO 22 % (21-46); MONOCYTES ABSOLUTE AUTO 0.92 K/mm3 (0.16-1.47); MONOCYTES PERCENT AUTO 11 % (4-13); Mean Corpuscular HGB 32.6 pg (26.0-34.0); Mean Corpuscular HGB Conc 32.5 g/dL (31.5-36.5); Mean Corpuscular Volume 100 fL (80-100); Mean Platelet Volume 9.7 fL (9.1-12.4); NEUTROPHILS ABSOLUTE AUTO 5.72 K/mm3 (1.96-9.15); NEUTROPHILS PERCENT AUTO 66 % (41-73); Platelet Count 319 K/mm3 (150-400); RDW Standard Deviation 51.1 fL (35.1-46.3); Red Blood Cell Count 3.93 M/mm3 (3.80-5.20); White Blood Cell Count 8.72 K/mm3 (4.00-11.30)
[2022-11-16 19:22] LABS: Albumin, Blood 3.6 g/dL (3.4-5.0); Albumin/Globulin Ratio 0.9 (0.8-1.8); Bilirubin, Total 0.4 mg/dL (0.1-1.0); Bun/Creatinine Ratio 21.1 (12.0-20.0); Calcium, Blood 11.3 mg/dL (8.5-10.1); Creatinine, Blood 1.23 mg/dL (0.40-1.00); Globulin, Blood 3.8 g/dL (2.2-4.0); Potassium, Blood 4.1 mmol/L (3.5-5.5); Total Protein, Blood 7.4 g/dL (6.4-8.2)
[2022-11-16 21:30] LABS: Source, Urine Clean Catch
[2022-11-16 21:36] LABS: Bilirubin, Urine Neg (Neg); Blood, Urine 5+ (Neg); Glucose Qualitative, Urine Neg (Neg); Ketones, Urine Neg (Neg); Leukocyte Esterase, Urine 1+ (Neg); Nitrite, Urine Neg (Neg); Protein, Urine 2+ (Neg); Specific Gravity, Urine 1.015 (1.003-1.022); Urobilinogen, Urine NORM (Normal)
[2022-11-16 21:44] LABS: Amorphous Light (0-Heavy); Appearance, Urine Hazy (Clear); Bacteria Few /hpf; Calcium Oxalate Crystals Few /hpf; Color, Urine Yellow (P-Yellow); Squamous Epithelial Cells Few /hpf (Few)
--- NOTE | 2022-11-17 00:30 | NUR ---
PT CHART REVIEWED FOR ADMIT
[2022-11-17 01:57] VITALS: BP 151/95
--- NOTE | 2022-11-17 02:15 | NUR ---
ADMIT NOTE; PT ARRIVES FROM THE ED VIA WHEELCHAIR. THE PT IS AXO X4 AND STANDBY ASSIST DUE TO RECENT SYNCOPAL EPISODES PRIOR TO ADMIT. THE PT ENDORSES SIGNIFIANT ABD PAIN AND NAUSEA UPON ADMIT BUT OTHERWISE DENIES ANY ACUTE NEEDS. THE PT DENIES ANY SOB OR CHEST PAIN/PRESSURE UPON ADMIT. THE PT IS ABLE TO EASILY REST INTO BED. CURRENTLY THE PT IS SLEEPING IN BED WITH THE BED IN THE LOWEST POSITION AND THE CALL LIGHT AT BEDSIDE.
--- NOTE | 2022-11-17 05:35 | NUR ---
SHIFT SUMMARY; NO ACUTE CHANGES SINCE ADMIT. THE PT IS AXO X4 AND STANDBY ASSIST DUE TO RECENT SYNCOPAL EPISODES PRIOR TO ADMIT. THE PT WAS NAUSEOUS AND ENDORSED SIGNIFICANT ABD PAIN, WELL A SOAR THROAT AND A HEADACHE. THE PT WAS MEDICATED WITH SOME PRNS AND A HOME HEADACHE MEDICATION AND NO LONGER ENDORSES A SOAR THROAT, SIGNIFICANT ABD PAIN, A HEADACHE OR NAUSEA. THE PT DENIES ANY CHEST PAIN/PRESSURE OR SOB. CURRENTLY THE PT IS RESTING IN BED WITH THE BED IN THE LOWEST POSITION AND THE CALL LIGHT AT BEDSIDE. FIRE EDUCATION PROVIDED, FIRE RISK ASSESSED AND THE PT DENIES HAVING AND FLAMMABLE OR POSSIBLE IGNITION SOURCES IN POSSESSION.
[2022-11-17 08:19] VITALS: BP 185/94
[2022-11-17 11:52] LABS: BASOPHILS ABSOLUTE AUTO 0.04 K/mm3 (0.00-0.23); BASOPHILS PERCENT AUTO 1 % (0-2); EOSINOPHILS ABSOLUTE AUTO 0.08 K/mm3 (0.00-0.68); EOSINOPHILS PERCENT AUTO 1 % (0-6); Hematocrit 35.1 % (33.0-51.0); Hemoglobin 11.5 g/dL (11.5-16.0); IMMATURE GRAN ABSOLUTE AUTO 0.03 K/mm3 (0.00-0.10); IMMATURE GRAN PERCENT AUTO 0 % (0-1); LYMPHOCYTES PERCENT AUTO 18 % (21-46); MONOCYTES ABSOLUTE AUTO 0.77 K/mm3 (0.16-1.47); MONOCYTES PERCENT AUTO 10 % (4-13); Mean Corpuscular HGB 32.6 pg (26.0-34.0); Mean Corpuscular HGB Conc 32.8 g/dL (31.5-36.5); Mean Corpuscular Volume 99 fL (80-100); Mean Platelet Volume 9.7 fL (9.1-12.4); NEUTROPHILS ABSOLUTE AUTO 5.47 K/mm3 (1.96-9.15); NEUTROPHILS PERCENT AUTO 70 % (41-73); Platelet Count 288 K/mm3 (150-400); RDW Standard Deviation 50.5 fL (35.1-46.3); Red Blood Cell Count 3.53 M/mm3 (3.80-5.20); White Blood Cell Count 7.79 K/mm3 (4.00-11.30)
[2022-11-17 12:12] LABS: Bun/Creatinine Ratio 24.2 (12.0-20.0); Calcium, Blood 9.8 mg/dL (8.5-10.1); Creatinine, Blood 0.66 mg/dL (0.40-1.00); Potassium, Blood 3.6 mmol/L (3.5-5.5)
[2022-11-17 15:21] VITALS: BP 150/96
--- NOTE | 2022-11-17 16:20 | NUR ---
PT AOX4 AND COOPERATIVE OF CARE. PT HAVING ANXIETY EARLIER IN SHIFT HER IV WENT BAD AND LAB COULD NOT DRAW. PT HAD HIGH BP AND HER HOME MEDICATION WAS ADMINISTERED IMPROVING HER BP. PT IS HAVING A LOT OF PERSONAL STRESS AND ADMITS SHE IS VERY WORRIED ABOUT HOW SHE IS GOING TO GET BY WITH HER HEALTH BEING POOR AT THIS TIME. PT HAS BEEN RESTING. SHE WAS TREATED FOR NAUSEA AND PAIN PER EMAR. CALL LIGHT IS WITHIN REACH WILL CONTINUE TO MONITOR.
--- NOTE | 2022-11-17 16:23 | NUR ---
IGNITION RISK ASSESSMENT HAS BEEN DONE WITH HOURLY ROUNDING NO HAZARDS FOUND.
[2022-11-17 18:38] LABS: U Amphetamine Screen Not Detected; U Barbituate Screen Not Detected; U Benzodiazapine Screen Not Detected; U Buprenorphine Screen Not Detected; U Cannabinoids Screen DETECTED; U Cocaine Screen Not Detected; U Methadone Screen Not Detected; U Methamphetamine Screen Not Detected; U Opiates Screen Not Detected; U Oxycodone Screen Not Detected; U Phencyclidine Screen Not Detected; U Propoxyphene Screen Not Detected
[2022-11-17 19:34] VITALS: BP 123/68
--- NOTE | 2022-11-17 22:01 | NUR ---
late entry- 194 pt extremely emotional, states that she has suicidal ideations but no plan. suicidal thoughts are related to poor health condition, pain, and personal issues at home. Dr. allan and night resident notified. pt also reporting severe pain in RLQ. see emar for medicaiton update. no other plans at this time.
[2022-11-18] VITALS (7 sets, daily range): BP systolic 124–178; BP diastolic 61–108
--- NOTE | 2022-11-18 04:18 | NUR ---
SHIFT SUMMARY PT IS ALERT AND ORIENTED X4. REPORTS PAIN IN THE RLQ. MD NOTIFIED. PLS SEE PREVIOUS NURSE NOTES FOR MORE DETAILS OVERNIGHT. NAUSEA ALSO TREATED PER EMAR. PT DENIES SMOKING ANY PRODUCT. NO ACUTE CHANGES OVERNIGHT. DURING ROUNDING, EDUCATION PROVIDED ON THE RISKS OF INJURY WHILE USING ANY IGNITION SOURCE AROUND OXYGEN. PT VERBALIZES UNDERSTANDING. PT DENIES HAVING ANY IGNITION SOURCES. NO VISITORS THIS SHIFT. BED IS THE LOWEST POSITION BED ALARM ON WITH CALL LIGHT IN REACH.
--- NOTE | 2022-11-18 08:00 | NUR ---
PT A/O X3 TALKATIVE, SOME ANXIETY NOTED. STATES PAIN IN ABD THROUGH TO LEFT LOW BACK. MED PER EMAR. STATES TYLENOL USELESS. STATES WILL SEE DR FOR MORE PAIN MEDS. H/R REG, KHOI, MURMUR NOTED. PER TELE S KHOI AT 54. NO EDEMA NOTED. LUNGS CLEAR, RESP EASY UNLABORED. ON R/A. BT X4 LAST BM YEST PER PT. VOIDS INS OR SBA TO BSC.
--- NOTE | 2022-11-18 10:00 | NUR ---
[address] BRODY. AB TO GIVE CARDIAC MEDS IF H/R = OR > 50.
--- NOTE | 2022-11-18 10:30 | NUR ---
GIVE ALL CARDIAC MEDS PER DR BRODY;. DISCUSSED H/R
--- NOTE | 2022-11-18 10:55 | NUR ---
pha called, states ketoralac is allergy. i spoke to dr sanchez prior. mentioned same. dr sanchez ordered anyway after speaking to pt. pt reports to me no allergy to ketoralac. states did receive at dr office in past. does not know why is on allergy list. i removed from allergy list. pha to call dr to verify order
--- NOTE | 2022-11-18 11:42 | NUR ---
PER PHA NOTE, DR CANCELLED TORADOL FOR POSSIBILITY OF ALLERGY, ADDED TRAMADOL.
--- NOTE | 2022-11-18 12:36 | NUR ---
PT ANGRY ABOUT LAB DRAW. STATES WE ARE ALL INCOMPETENT. STATES WILL JUST GO HOME AMA. WILL JUST GO TO BED AND ALLOW SELF TO JUST . HAD DISCUSSION ABOUT BERATING STAFF. EXPLAINED THIS WILL NOT IMPROVE HER SITUATION. SHE STATES JUST ANGRY ABOUT BEING SICK AND NOT BEING ABLE TO WORK. STATES DOES NOT FEEL ACTIVELY SUICIDAL, NO PLAN FOR KILLING SELF, BUT IF DOES NOT GET BETTER, WILL JUST GO TO BED AND LET HERSELF GO. CALLED DR KLEIN RE ABOVE CONVERSATION. NO NEW ORDERS. PRESENTLY SITTING EDGE OF BED AND EATING. STATES PAIN PILL DID MOSTLY NOTHING TO HELP. STILL 8-9 PAIN.
--- NOTE | 2022-11-18 13:20 | NUR ---
1320 PT ADVISED AIDE THAT ADVISED ME THAT PT STATES [phone] HAD MID UPPER CHEST PAIN. NO CHANGE ON TELE. VSS. PT STATES CH PN RESOLVED SELF. CALLED DR KLEIN. ORDERS FOR EKG.
--- NOTE | 2022-11-18 15:43 | NUR ---
1220 PT REPORTED TO [place], THAT REPORTED TO ME THAT PT FELT CHEST PAIN MID UPPER CHEST LINE PN. [phone]. THEN DISAPPEARED. VS SHOW STABLE. PT STATES ASYMPTOMATIC AT THIS TIME. TELE REPORTS NO INCIDENTS. MINNA KLEIN, SHE ORDERED EKG. CALLED WITH EKG DONE. NO NEW ORDERS.
--- NOTE | 2022-11-18 15:45 | NUR ---
PT STATES WILL NEED TO DO SOMETHING ELSE. STATES THE ERETHROMYCIN DID HELP UPPER ABD SOME, BUT STILL HAS THE LOW ABD ON RT TO BACK PAIN. STILL 8-9. TRAMADOL DID NOT HELP WILL NEED SOMETHING ELSE.
--- NOTE | 2022-11-18 15:51 | NUR ---
CALLED DR KLEIN RE PT REQUEST FOR IV PAIN MEDS. SHE WILL COME SEE PT.
--- NOTE | 2022-11-18 19:42 | NUR ---
PT HAD EPISODE OF CALLING AND YELLING AT STAFF INCOMPETENT TODAY. EXPLAINED THIS IS NOT HOW WE TREAT PEOPLE HERE AT HOSP. ALL DESERVE RESPECT. IF TRUELY FEELS WE ARE ALL INCOMPETENT, SHE COULD LEAVE. SHE CALMED DOWN AND HAS BEEN MORE RESPECTFUL T/O DAY SINCE. DID REPORT CHEST PAIN MID STERNAL PAIN. EPIGASTRIC AREA. EKG RUN. DR DID ODRDER MOTILITY MED FOR HER WHICH SEEMS TO HELP. TORADOL ALSO HAS IMPROVED PAIN THIS EVENING. DR DID APPROVE GIVING CARDIAC MEDS WITH H/R 50 OR GREATER. NO OTHER CONCERNS NOTED. BED IN LOW POSITION, CALL LITE IN REACH, CALLS APPROP
[2022-11-19 05:08] VITALS: BP 147/80
--- NOTE | 2022-11-19 07:46 | NUR ---
SHIFT SUMMARY PT REPORTED FEELING BETTER THAT LAST NIGHT. PT REPORTED PAIN IN THE LOWER BACK AND LRQ WELL NAUSEA. TREATED PER EMAR. NO ACUTE CHANGES OVERNIGHT. PT IS INDEPENDENT IN THE ROOM. BED IS IN THE LOWEST POSITION WITH CALL LIGHT IN REACH.
[2022-11-19 08:00] VITALS: BP 169/89
[2022-11-19 13:15] VITALS: BP 158/101
[2022-11-19 14:50] VITALS: BP 181/57
[2022-11-19 16:11] VITALS: BP 145/95
--- NOTE | 2022-11-19 17:59 | NUR ---
SHIFT SUMMARY PT AXO, ANXIOUS. SINUS AT 64 ON TELE THIS MORNING. BP ELEVATED AT 1450 BUT THEN WHEN REASSESSED AT 1611 BP WAS 145/95, PT MEDICATED FOR ANXIETY PER EMAR AFTER THIS NURSE ALREADY COMPLETED THERAPEUTIC COMMUNICATION AND ACTIVE LISTENING TO CALM PATIENT. DR JAMES ALSO ROUNDED ON PT AGAIN TO HELP HER TO CALM. PT SLEEPING SINCE BEING MEDICATED FOR ANXIETY. BED IN LOW POSITION, CALL LIGHT WITHIN REACH. UP AD MARY IN ROOM.
[2022-11-19 20:09] VITALS: BP 188/89
[2022-11-20 04:01] VITALS: BP 158/86
--- NOTE | 2022-11-20 06:36 | NUR ---
NO ACUTE CHANGES OVERNIGHT. PT INDEPENDENT IN THE ROOM. ANXIOUS ABOUT CURRENT AND POSSIBLE FUTURE SITUATION, HEALTH, AND OTHER PERSONAL CONCERNS. USE OF THERAPUTIC COMMUNICATION TO ASSIST IN CALMING PT. PT REPORTING LOW BACK PAIN FROM PASSING KIDNEY STONES WELL PAIN IN THE RLQ. EXCELLENT PO INTAKE. NAUSEA, PAIN, AND ANXIETY TREATED PER EMAR. PT DENIES HAVING ANY IGNITION SOURCES. BED IS IN THE LOWEST POSITION WITH CALL LIGHT IN REACH.
[2022-11-20 07:49] VITALS: BP 176/104
[2022-11-20 12:19] VITALS: BP 150/100
[2022-11-20 16:38] VITALS: BP 136/67
--- NOTE | 2022-11-20 17:27 | NUR ---
PT IS A/OX3, COOPERATIVE. THE PT THIS AM REPORTED THAT SHE WAS EXTREMILY ANXIOUS. SHE REPORTED THAT SHE THOUGHT IT WAS FROM THE TORADOL SHE WAS GIVEN. THE PT WAS MEDICATED FOR ANXIETY X1 THIS AM AND AGAIN THIS AFTERNOON, WHICH SHE REPORTED GAVE HER SOME RELIEF. THE PT WAS MEDICATED FOR PAIN WITH NORCO X2 SO FAR THIS SHIFT AND TYLENOL X1. THIS AFTERNOON THE RELIGIOUS EDUCATOR CONSULTED ON THE PT. WHEN ASKED WHAT THE RELIGIOUS EDUCATOR HAD SAID THE PT RESPONDED WITH SOME CONFUSED ANSWERS, THIS WAS WITNESSED BY THE KAYY SINGLETARY. PT IS AWAKE APPEARS TO BE BREATHING EASILY, CALL LIGHT IN REACH. WILL CONTINUE TO MONITOR AND ASSESS FOR CHANGES
[2022-11-20 19:56] VITALS: BP 132/85
[2022-11-21 03:25] VITALS: BP 120/83
--- NOTE | 2022-11-21 04:46 | NUR ---
SHIFT SUMMARY NO ACUTE CHANGES. PT SLEEPING OFF AND ON DURING THE NIGHT. PT CONTINUES TO HAVE PAIN AND ANXIETY AND HAS BEEN MEDICATED PER EMAR NEEDED. PT HAS CALL LIGHT WITHIN HER REACH.
[2022-11-21 08:12] VITALS: BP 154/103
[2022-11-21 08:15] VITALS: BP 145/96
[2022-11-21 09:01] LABS: Albumin, Blood 3.2 g/dL (3.4-5.0); Anion Gap 3 mmol/L (6-16); Blood Urea Nitrogen 21 mg/dL (8-24); Bun/Creatinine Ratio 34.5 (12.0-20.0); CO2, Blood 31 mmol/L (21-32); Calcium, Blood 10.8 mg/dL (8.5-10.1); Chloride, Blood 108 mmol/L (98-108); Creatinine, Blood 0.61 mg/dL (0.40-1.00); Glomerular Filtration Rate 99 (60-); Glucose, Blood 110 mg/dL (70-99); Phosphorus, Blood 3.7 mg/dL (2.5-4.9); Sodium, Blood 142 mmol/L (136-145)
[2022-11-21 14:46] VITALS: BP 136/70
--- NOTE | 2022-11-21 16:38 | NUR ---
PT IS A/OX3, PLEASANT AND COOPERATIVE. THE PT IS UP IND IN HER ROOM. THE PT SEEMS MUCH LESS ANXIOUS TODAY COMPARED TO YESTERDAY. ANSWERS QUESTIONS APPROPRIATLY SO FAR. THE PT WAS MEDICATED FOR PAIN AND ANXIETY T/O THE DAY. PT WAS MEDICATED FOR NAUSEA X2. PT HAS PASSED SOME KIDNEY STONES TODAY. STONES WERE SEEN IN THE STRAINER. CALL LIGHT IN REACH. WILL CONTINUE TO MONITOR AND ASSESS FOR CHANGES
[2022-11-21 16:51] VITALS: BP 141/66
[2022-11-21 19:39] VITALS: BP 110/70
--- NOTE | 2022-11-22 05:30 | NUR ---
SHIFT SUMMARY PATIENT ALERT, PLEASANT AFFECT. C/O R/L FLANK PAIN R/T RECENT PASSING OF KIDNEY STONES. RECEIVED PRN ANALGESIC MEDICATION, TOLERATED WELL. C/O UNABLE TO SLEEP DUE TO ANXIETY AND NAUSEA, RECEIVED PRN ATIVAN AND ZOFRAN, TOLERATED WELL. APPEARES TO BE RESTING IN BED, ASLEEP, THROUGHOUT REMAINDER OF SHIFT. CONTINUES ON TELE, SR 60s. NO ACUTE CHANGES NOTED OVERNIGHT. BED LOW, CALL LIGHT WITHIN REACH.
[2022-11-22 07:48] VITALS: BP 123/68
--- NOTE | 2022-11-22 08:30 | NUR ---
SPOKE TO MERRY AT [facility]. SHE IS WAITING FOR INSURANCE AUTHORIZATION FOR [facility]. ONCE APPROVED SHE WILL BE AVAILABLE TO [facility] AFTER 5 PM TODAY.
[2022-11-22] MEDS ORDERED: AMLO10 PO (16:47)
[2022-11-22 17:42] VITALS: BP 113/71
--- NOTE | 2022-11-22 18:33 | NUR ---
DISCHARGE SUMMARY: PT DISCHARGED HOME WITH GRANDRYAN [facility] AFTER [facility] PLACED AND PT EDUCATED ON. PT EDUCATED ON DISCHARGE INSTRUCTIONS AND MEDICATIONS. PT VU. PT ASSISTED WITH PACKING BELONGINGS. PT GOT SELF DRESSED. PT ESCORTED TO POV BY GRANDSON PER HIS REQUEST VIA WHEELCHAIR.
== END 2022-11-22 18:33 | disposition home or self-care (01) | DRG 315 ==
LOC: ER 16:07 → MEDS 16:08 → ERHOLD 16:08 → MEDS 11-17 01:52
PROVIDERS: Family Medicine; Hospitalist; Internal Medicine; Physician Assistant; ADMIT Internal Medicine
DX: I42.1 Obstructive hypertrophic cardiomyopathy (principal); J98.11 Atelectasis; N17.9 Acute kidney failure, unspecified; K57.92 Diverticulitis of intestine, part unspecified, without perforation or abscess without bleeding; E11.9 Type 2 diabetes mellitus without complications; J45.909 Unspecified asthma, uncomplicated; S09.90XA Unspecified injury of head, initial encounter; X58.XXXA Exposure to other specified factors, initial encounter; I10 Essential (primary) hypertension; M79.7 Fibromyalgia; F41.9 Anxiety disorder, unspecified; M54.50 Low back pain, unspecified; N20.0 Calculus of kidney; M32.9 Systemic lupus erythematosus, unspecified; I48.91 Unspecified atrial fibrillation; F12.90 Cannabis use, unspecified, uncomplicated; G89.29 Other chronic pain; E78.5 Hyperlipidemia, unspecified; Z87.19 Personal history of other diseases of the digestive system; Z90.710 Acquired absence of both cervix and uterus; Z90.722 Acquired absence of ovaries, bilateral; Z90.79 Acquired absence of other genital organ(s); Z98.51 Tubal ligation status; Z87.820 Personal history of traumatic brain injury; Z90.49 Acquired absence of other specified parts of digestive tract; Z90.89 Acquired absence of other organs; Z98.890 Other specified postprocedural states; Z87.891 Personal history of nicotine dependence; Z88.0 Allergy status to penicillin; Z91.030 Bee allergy status; Z91.038 Other insect allergy status; Z88.8 Allergy status to other drugs, medicaments and biological substances; Z91.048 Other nonmedicinal substance allergy status; Z79.899 Other long term (current) drug therapy
CPT/HCPCS: 36415; 70450; 71046; 74176; 80048; 80053; 80069; 81001; 83690; 83735; 83880; 84484; 85025; 93005; 93010; 93306; 96360; 96361; 96374-59; 96375; 96376; 97110; 97116; 97162; 97530; 99285-25; A9270; G0378; J1885; J2405; J3010; J7030; Q0177

== ENCOUNTER 2022-11-25 17:03 | Emergency (ER) | payer OTHER ==
[~2022-11-25] VITALS: Ht 160 cm; Wt 72.6 kg
[2022-11-25 17:57] LABS: BASOPHILS ABSOLUTE AUTO 0.07 K/mm3 (0.00-0.23); BASOPHILS PERCENT AUTO 1 % (0-2); EOSINOPHILS ABSOLUTE AUTO 0.25 K/mm3 (0.00-0.68); EOSINOPHILS PERCENT AUTO 3 % (0-6); Hematocrit 39.2 % (33.0-51.0); Hemoglobin 12.7 g/dL (11.5-16.0); IMMATURE GRAN ABSOLUTE AUTO 0.02 K/mm3 (0.00-0.10); IMMATURE GRAN PERCENT AUTO 0 % (0-1); LYMPHOCYTES ABSOLUTE AUTO 1.86 K/mm3 (0.84-5.20); LYMPHOCYTES PERCENT AUTO 24 % (21-46); MONOCYTES ABSOLUTE AUTO 0.59 K/mm3 (0.16-1.47); MONOCYTES PERCENT AUTO 8 % (4-13); Mean Corpuscular HGB 32.3 pg (26.0-34.0); Mean Corpuscular HGB Conc 32.4 g/dL (31.5-36.5); Mean Corpuscular Volume 100 fL (80-100); NEUTROPHILS ABSOLUTE AUTO 4.99 K/mm3 (1.96-9.15); NEUTROPHILS PERCENT AUTO 64 % (41-73); RDW Coefficient Variation 13.6 % (11.7-14.2); RDW Standard Deviation 50.4 fL (35.1-46.3); Red Blood Cell Count 3.93 M/mm3 (3.80-5.20); White Blood Cell Count 7.78 K/mm3 (4.00-11.30)
[2022-11-25 18:03] LABS: Albumin, Blood 3.6 g/dL (3.4-5.0); Bilirubin, Total 0.5 mg/dL (0.1-1.0); Bun/Creatinine Ratio 30.9 (12.0-20.0); Calcium, Blood 11.1 mg/dL (8.5-10.1); Creatinine, Blood 0.62 mg/dL (0.40-1.00); Globulin, Blood 3.6 g/dL (2.2-4.0); Potassium, Blood 4.2 mmol/L (3.5-5.5); Total Protein, Blood 7.2 g/dL (6.4-8.2)
[2022-11-25 18:21] LABS: Mean Platelet Volume 10.5 fL (9.1-12.4); Platelet Count 246 K/mm3 (150-400)
[2022-11-26 01:39] VITALS: BP 153/59
== END 2022-11-26 02:50 | disposition home or self-care (01) ==
LOC: ER 17:03
PROVIDERS: Student in an Organized Health Care Education/Training Program
DX: I42.2 Other hypertrophic cardiomyopathy (principal); R10.9 Unspecified abdominal pain; K62.5 Hemorrhage of anus and rectum; E11.9 Type 2 diabetes mellitus without complications; I10 Essential (primary) hypertension; E78.5 Hyperlipidemia, unspecified; J45.909 Unspecified asthma, uncomplicated; Z91.030 Bee allergy status; Z88.0 Allergy status to penicillin; Z88.1 Allergy status to other antibiotic agents; Z88.8 Allergy status to other drugs, medicaments and biological substances; Z79.899 Other long term (current) drug therapy; Z87.891 Personal history of nicotine dependence
CPT/HCPCS: 74177; 80053; 83690; 84484; 85018; 85025; 86850; 86900; 86901; 93005; 93010; 96374; 99285-25; A9270; J3010; Q9967

== ENCOUNTER 2022-12-02 15:44 | Emergency (ER) | payer OTHER ==
[~2022-12-02] VITALS: Ht 160 cm; Wt 73.5 kg
[2022-12-02 18:11] LABS: Source, Urine Straight Cath
[2022-12-02 18:14] LABS: Bilirubin, Urine Neg (Neg); Blood, Urine 3+ (Neg); Glucose Qualitative, Urine Neg (Neg); Ketones, Urine Neg (Neg); Leukocyte Esterase, Urine Neg (Neg); Nitrite, Urine Neg (Neg); Protein, Urine Neg (Neg); Urobilinogen, Urine NORM (Normal)
[2022-12-02 18:21] LABS: Appearance, Urine Clear (Clear); Color, Urine Pale Yellow (P-Yellow)
[2022-12-02 18:22] LABS: Bacteria Rare /hpf; Squamous Epithelial Cells Rare /hpf (Few); White Blood Cells, Urine 0-2 /hpf (0-5)
[2022-12-02 19:57] LABS: BASOPHILS ABSOLUTE AUTO 0.05 K/mm3 (0.00-0.23); BASOPHILS PERCENT AUTO 1 % (0-2); EOSINOPHILS ABSOLUTE AUTO 0.08 K/mm3 (0.00-0.68); EOSINOPHILS PERCENT AUTO 1 % (0-6); Hematocrit 39.4 % (33.0-51.0); Hemoglobin 12.8 g/dL (11.5-16.0); IMMATURE GRAN ABSOLUTE AUTO 0.04 K/mm3 (0.00-0.10); IMMATURE GRAN PERCENT AUTO 0 % (0-1); LYMPHOCYTES ABSOLUTE AUTO 0.84 K/mm3 (0.84-5.20); LYMPHOCYTES PERCENT AUTO 8 % (21-46); MONOCYTES ABSOLUTE AUTO 0.42 K/mm3 (0.16-1.47); MONOCYTES PERCENT AUTO 4 % (4-13); Mean Corpuscular HGB 32.2 pg (26.0-34.0); Mean Corpuscular HGB Conc 32.5 g/dL (31.5-36.5); Mean Corpuscular Volume 99 fL (80-100); NEUTROPHILS PERCENT AUTO 86 % (41-73); Platelet Count 280 K/mm3 (150-400); RDW Coefficient Variation 13.2 % (11.7-14.2); RDW Standard Deviation 49.1 fL (35.1-46.3); Red Blood Cell Count 3.97 M/mm3 (3.80-5.20); White Blood Cell Count 10.03 K/mm3 (4.00-11.30)
[2022-12-02 20:18] LABS: Albumin, Blood 3.6 g/dL (3.4-5.0); Albumin/Globulin Ratio 1.1 (0.8-1.8); Bilirubin, Total 0.3 mg/dL (0.1-1.0); Bun/Creatinine Ratio 23.4 (12.0-20.0); Calcium, Blood 10.7 mg/dL (8.5-10.1); Creatinine, Blood 0.73 mg/dL (0.40-1.00); Globulin, Blood 3.3 g/dL (2.2-4.0); Potassium, Blood 4.1 mmol/L (3.5-5.5); Total Protein, Blood 6.9 g/dL (6.4-8.2)
[2022-12-02] MEDS ORDERED: ONDA4ODT MM (23:45)
[2022-12-03] MEDS ORDERED: OXAYDO5 M1 PO (00:28)
[2022-12-03 02:09] VITALS: BP 145/87
== END 2022-12-03 02:10 | disposition home or self-care (01) ==
LOC: ER 15:44
PROVIDERS: Student in an Organized Health Care Education/Training Program
DX: N13.2 Hydronephrosis with renal and ureteral calculous obstruction (principal); R11.2 Nausea with vomiting, unspecified; I31.39 Other pericardial effusion (noninflammatory); Z88.8 Allergy status to other drugs, medicaments and biological substances; Z88.0 Allergy status to penicillin; Z88.1 Allergy status to other antibiotic agents; Z91.030 Bee allergy status; Z79.899 Other long term (current) drug therapy; E11.9 Type 2 diabetes mellitus without complications; I10 Essential (primary) hypertension; E78.5 Hyperlipidemia, unspecified; J45.909 Unspecified asthma, uncomplicated
CPT/HCPCS: 74176; 80053; 81001; 83605; 85025; 96374; 96375; 99285-25; A9270; J1790; J2270; J7030

== ENCOUNTER → 2023-02-06 | Outpatient (CLI) | payer OTHER ==
[~2023-02-06] MED LIST changes: +OXAYDO5 M1 PO
[2023-02-06 17:46] LABS: BASOPHILS ABSOLUTE AUTO 0.08 K/mm3 (0.00-0.23); BASOPHILS PERCENT AUTO 1 % (0-2); EOSINOPHILS ABSOLUTE AUTO 0.19 K/mm3 (0.00-0.68); EOSINOPHILS PERCENT AUTO 3 % (0-6); Hematocrit 39.2 % (33.0-51.0); Hemoglobin 12.8 g/dL (11.5-16.0); IMMATURE GRAN ABSOLUTE AUTO 0.01 K/mm3 (0.00-0.10); IMMATURE GRAN PERCENT AUTO 0 % (0-1); LYMPHOCYTES ABSOLUTE AUTO 1.24 K/mm3 (0.84-5.20); LYMPHOCYTES PERCENT AUTO 21 % (21-46); MONOCYTES ABSOLUTE AUTO 0.44 K/mm3 (0.16-1.47); MONOCYTES PERCENT AUTO 7 % (4-13); Mean Corpuscular HGB 30.9 pg (26.0-34.0); Mean Corpuscular HGB Conc 32.7 g/dL (31.5-36.5); Mean Corpuscular Volume 95 fL (80-100); Mean Platelet Volume 10.6 fL (9.1-12.4); NEUTROPHILS ABSOLUTE AUTO 3.98 K/mm3 (1.96-9.15); NEUTROPHILS PERCENT AUTO 67 % (41-73); Platelet Count 262 K/mm3 (150-400); RDW Coefficient Variation 12.5 % (11.7-14.2); RDW Standard Deviation 43.4 fL (35.1-46.3); Red Blood Cell Count 4.14 M/mm3 (3.80-5.20); White Blood Cell Count 5.94 K/mm3 (4.00-11.30)
[2023-02-06 19:01] LABS: Albumin, Blood 3.8 g/dL (3.4-5.0); Albumin/Globulin Ratio 1.1 (0.8-1.8); Bilirubin, Total 0.3 mg/dL (0.1-1.0); Bun/Creatinine Ratio 16.5 (12.0-20.0); Calcium, Blood 10.9 mg/dL (8.5-10.1); Creatinine, Blood 0.61 mg/dL (0.40-1.00); Globulin, Blood 3.4 g/dL (2.2-4.0); Potassium, Blood 4.4 mmol/L (3.5-5.5); Total Protein, Blood 7.2 g/dL (6.4-8.2)
== END ==
LOC: LAB SHORT 17:04 → LAB 17:04
PROVIDERS: Internal Medicine Rheumatology
DX: L93.0 Discoid lupus erythematosus (principal)
CPT/HCPCS: 80053; 85025; 85651

== ENCOUNTER 2023-03-11 11:00 | Day surgery (SDC) | payer OTHER ==
[~2023-03-11] VITALS: Ht 157.5 cm; Wt 80.5 kg
[2023-03-11] VITALS (11 sets, daily range): BP systolic 76–141; BP diastolic 45–93
--- NOTE | 2023-03-11 09:58 | NUR ---
DISCUSSED KETOROLAC ALLERGY WITH DR PITT. DR PITT CONFIRMS TO KEEP JOINT COCKTAIL INJECTION ORDER THE SAME, DESPITE REACTION LISTED. WILL DISCUSS KETOROLAC ALLERGY WITH PATIENT UPON ARRIVAL AND CONFIRM REACTION.
[~2023-03-11 11:00] MED LIST changes: +DILT180 PO; +ESTRADIOL1 MG PO; +OXYMORPHONE HCL5 M1 PO; +PRAZ2 PO; +REXULTI0.5 MG PO; +RIZATRIPTAN10 MG SL; +SULF500 PO
--- NOTE | 2023-03-11 12:22 | NUR ---
PATIENT DENIES ALLERGY OR ADVERSE REACTION TO KETOROLAC. REMOVED FROM ALLERGY LIST.
--- NOTE | 2023-03-11 14:16 | NUR ---
03/11/23 1416 Anya Espinal A PATIENT STILL WAITING IN DAY SURGERY FOR SURGERY. REPORT GIVEN TO GUMARO MCCARTHY RN.
--- NOTE | 2023-03-11 18:43 | NUR ---
SHIFT SUMMARY PT ADMITTED FROM PACU THIS EVENING FOR L ANTERIOR HIP. PRINEO DRESSING IN PLACE, C/D/I. PT HAD SPINAL BLOCK AND CANNOT FEEL LE, UNABLE TO VOID AT THIS TIME. TXA INFUSING IN IV OF L FA. VSS, BREATHING EVEN AND UNLABORED. CALL LIGHT WITHIN REACH.
[2023-03-12 04:39] VITALS: BP 138/79
--- NOTE | 2023-03-12 05:27 | NUR ---
SHIFT SUMMARY POD1 L CHUCKY. DRESSING IS C/D/I. SENSATION AND CIRCULATION REMAINS INTACT. PT EXPRESSES CONCERN ABOUT SWELLING IN UPPER LEFT THIGH, UNDER INCISION. AREA REMAINS SOFT TO TOUCH, AND HAS NO DISCOLORATION OR RADIATING HEAT. CRYO HAS REMAINED IN PLACE. PAIN CONTROL HAS BEEN DIFFICULT T/O THE NIGHT. MEDICATED WITH PRN'S AND SCHEDULED. PT WAS ABLE TO AMBULATE TO THE BATHROOM ONCE, THIS MORNING, AND ONLY TOLLERATED TTWB ON LLE. TOLLERATING PO INTAKE W/O N/V. VOIDING W/P DIFFICULTY. PLAN FOR PT TO WORK WITH PHYSICAL THERAPY AND D/C HOME.
[2023-03-12 07:12] LABS: Bun/Creatinine Ratio 31.9 (12.0-20.0); Creatinine, Blood 0.66 mg/dL (0.40-1.00); Potassium, Blood 5.1 mmol/L (3.5-5.5)
[2023-03-12 07:57] LABS: BASOPHILS ABSOLUTE AUTO 0.03 K/mm3 (0.00-0.23); BASOPHILS PERCENT AUTO 0 % (0-2); EOSINOPHILS PERCENT AUTO 0 % (0-6); Hematocrit 36.9 % (33.0-51.0); Hemoglobin 11.6 g/dL (11.5-16.0); IMMATURE GRAN ABSOLUTE AUTO 0.04 K/mm3 (0.00-0.10); IMMATURE GRAN PERCENT AUTO 0 % (0-1); LYMPHOCYTES ABSOLUTE AUTO 0.85 K/mm3 (0.84-5.20); LYMPHOCYTES PERCENT AUTO 7 % (21-46); MONOCYTES ABSOLUTE AUTO 0.89 K/mm3 (0.16-1.47); MONOCYTES PERCENT AUTO 7 % (4-13); Mean Corpuscular HGB 30.3 pg (26.0-34.0); Mean Corpuscular HGB Conc 31.4 g/dL (31.5-36.5); Mean Corpuscular Volume 96 fL (80-100); Mean Platelet Volume 10.4 fL (9.1-12.4); NEUTROPHILS ABSOLUTE AUTO 11.07 K/mm3 (1.96-9.15); NEUTROPHILS PERCENT AUTO 86 % (41-73); Platelet Count 237 K/mm3 (150-400); RDW Coefficient Variation 13.2 % (11.7-14.2); RDW Standard Deviation 46.8 fL (35.1-46.3); Red Blood Cell Count 3.83 M/mm3 (3.80-5.20); White Blood Cell Count 12.88 K/mm3 (4.00-11.30)
[2023-03-12 08:07] VITALS: BP 163/90
[2023-03-12] MEDS ORDERED: ASPI81CH PO (09:43)
[2023-03-12] MEDS ORDERED: ACET500 PO (09:43)
[2023-03-12] MEDS ORDERED: OXYC5 PO (09:43)
--- NOTE | 2023-03-12 11:20 | NUR ---
DISCHARGE EDUCATION PT HAS CLEARED THERAPY. PAIN CONTROLLED. EATING, DRINKING, & VOIDING WELL. WAITING FOR RIDE TO ARRIVE.
--- NOTE | 2023-03-12 14:14 | NUR ---
Pt. is awake in bed when she welcomes my visit. Pt. is dressed and awaiting formal discharge. Pt. is pleasant. Facilitated a life review and considered matters of evonne and belief. Pt. verbalized deatils about her living situation and her dependance juliana her orthodoxy for support. Listen with emapthy and a calming presence. Prayed with Pt. then continued discussing more matters of evonne and belief. Pt. verbalized gratitude for the spiritual care visit.
--- NOTE | 2023-03-12 14:38 | NUR ---
DISCHARGE POLAR PACK SENT w/ PT. ESCORTED OUT VIA W/C.
== END 2023-03-12 14:39 | disposition home or self-care (01) ==
LOC: ORSCMMR 11:00 → ORD 14:00 → SURS 17:35 → ORSCMMR 03-12 14:39
PROVIDERS: Orthopaedic Surgery
PROC: 0SRB0JA Replacement of Left Hip Joint with Synthetic Substitute, Uncemented, Open Approach (ICD-10-PCS; principal; 2023-03-11 14:00)
DX: M16.12 Unilateral primary osteoarthritis, left hip (principal); Z96.641 Presence of right artificial hip joint; I25.10 Atherosclerotic heart disease of native coronary artery without angina pectoris; E11.9 Type 2 diabetes mellitus without complications; E78.5 Hyperlipidemia, unspecified; F41.8 Other specified anxiety disorders; J45.909 Unspecified asthma, uncomplicated; I10 Essential (primary) hypertension; M32.9 Systemic lupus erythematosus, unspecified; G47.33 Obstructive sleep apnea (adult) (pediatric); Z87.891 Personal history of nicotine dependence; Z79.899 Other long term (current) drug therapy; Z79.82 Long term (current) use of aspirin
CPT/HCPCS: 27130; 0054T; 36415; 72170; 80048; 82947; 83735; 85025; 97110; 97116; 97162; A9270; C1713; C1776; J0171; J0735; J1100; J1170; J1885; J2250; J2405; J2704; J2795; J3010; J7120

== ENCOUNTER 2023-03-17 03:52 | Emergency (ER) | payer OTHER ==
[~2023-03-17] VITALS: Ht 162.6 cm; Wt 117.9 kg
[~2023-03-17 03:52] MED LIST changes: +ACET500 PO; +OXYC5 PO
[2023-03-17 04:56] VITALS: BP 164/85
[2023-03-17] MEDS ORDERED: Robaxin750 MG PO ×2 (05:40→05:41)
== END 2023-03-17 05:36 | disposition home or self-care (01) ==
LOC: ER 03:52
DX: M25.552 Pain in left hip (principal); G89.18 Other acute postprocedural pain; Z96.642 Presence of left artificial hip joint; E11.9 Type 2 diabetes mellitus without complications; I10 Essential (primary) hypertension; J45.909 Unspecified asthma, uncomplicated; Z88.0 Allergy status to penicillin; Z88.8 Allergy status to other drugs, medicaments and biological substances; Z88.1 Allergy status to other antibiotic agents; Z91.030 Bee allergy status; Z79.899 Other long term (current) drug therapy; Z79.82 Long term (current) use of aspirin; Z87.891 Personal history of nicotine dependence
CPT/HCPCS: 73502; 96372; 99284-25; A9270; J1885

== ENCOUNTER → 2023-03-26 | Outpatient (CLI) | payer OTHER ==
[~2023-03-26] MED LIST changes: +Robaxin750 MG PO
== END | disposition home or self-care (01) ==
LOC: LAB 14:42 → LAB SHORT 14:42
DX: M16.12 Unilateral primary osteoarthritis, left hip (principal); Z96.642 Presence of left artificial hip joint
CPT/HCPCS: 87070; 87075; 87205

== ENCOUNTER 2023-04-02 11:07 | Inpatient (IN) | payer OTHER ==
[~2023-04-02] VITALS: Ht 160 cm; Wt 85.5 kg
[2023-04-02 12:46] LABS: BASOPHILS ABSOLUTE AUTO 0.08 K/mm3 (0.00-0.23); BASOPHILS PERCENT AUTO 2 % (0-2); EOSINOPHILS PERCENT AUTO 6 % (0-6); Hematocrit 31.7 % (33.0-51.0); Hemoglobin 9.8 g/dL (11.5-16.0); IMMATURE GRAN ABSOLUTE AUTO 0.02 K/mm3 (0.00-0.10); IMMATURE GRAN PERCENT AUTO 0 % (0-1); LYMPHOCYTES ABSOLUTE AUTO 1.26 K/mm3 (0.84-5.20); LYMPHOCYTES PERCENT AUTO 23 % (21-46); MONOCYTES PERCENT AUTO 9 % (4-13); Mean Corpuscular HGB 30.2 pg (26.0-34.0); Mean Corpuscular HGB Conc 30.9 g/dL (31.5-36.5); Mean Corpuscular Volume 98 fL (80-100); NEUTROPHILS ABSOLUTE AUTO 3.23 K/mm3 (1.96-9.15); NEUTROPHILS PERCENT AUTO 60 % (41-73); Platelet Count 325 K/mm3 (150-400); RDW Coefficient Variation 14.5 % (11.7-14.2); RDW Standard Deviation 52.9 fL (35.1-46.3); Red Blood Cell Count 3.24 M/mm3 (3.80-5.20); White Blood Cell Count 5.39 K/mm3 (4.00-11.30)
[2023-04-02 13:08] LABS: Albumin, Blood 3.1 g/dL (3.4-5.0); Albumin/Globulin Ratio 0.9 (0.8-1.8); Bilirubin, Total 0.2 mg/dL (0.1-1.0); Bun/Creatinine Ratio 23.7 (12.0-20.0); Calcium, Blood 10.5 mg/dL (8.5-10.1); Creatinine, Blood 0.59 mg/dL (0.40-1.00); Globulin, Blood 3.5 g/dL (2.2-4.0); Potassium, Blood 4.7 mmol/L (3.5-5.5); Total Protein, Blood 6.6 g/dL (6.4-8.2)
[2023-04-02] MEDS ORDERED: HYDROCODONE-AC1 EA19 PO (17:07)
[2023-04-02] MEDS ORDERED: CYCL10 PO (17:07)
[2023-04-02] MEDS ORDERED: ROPI.25 (17:30)
[2023-04-02] MEDS ORDERED: Norvasc10 MG PO (17:30)
[2023-04-02 20:05] VITALS: BP 183/100
--- NOTE | 2023-04-02 20:20 | NUR ---
KARI PT ARRIVED TO THE FLOOR, IN NO DISTRESS. A/OX4, ON RA, NO TELE. ABLE TO AMBULATE WITH SBA FOR SAFETY. PLAN TO BE NPO AT 0000 FOR SURGERY TOMORROW.
[2023-04-02 22:43] VITALS: BP 139/65
[2023-04-03] VITALS (18 sets, daily range): BP systolic 98–148; BP diastolic 54–110
--- NOTE | 2023-04-03 05:05 | NUR ---
SHIFT SUMMARY VSS. SIGNIFIGANT SWELLING, APPROXAMATELY BASEBALL SIZE, IN L HIP UNDER INCISION. MODERATELY FIRM TO PALPATION. PT SLEPT ON AND OFF T/O THE NIGHT. BECAME NPO AT 0000 IN ANTICIPATION FOR SURGERY TODAY. SURGICAL [place]IPEDOWN COMPLETE. MEDICATED FOR PAIN WITH PRN'S. PT REPORTS HIGH LEVELS OF PAIN T/O THE NIGHT, BUT WAS ABLE TO REST AFTER MEDICATION ADMINSTRATION. LOST IV ACCESS THIS AM, AWAITING POWERGLIDE PLACEMENT. NO ACUTE EVENTS NOTED
[2023-04-03 06:22] LABS: Hematocrit 31.7 % (33.0-51.0); Hemoglobin 9.6 g/dL (11.5-16.0)
--- NOTE | 2023-04-03 15:47 | NUR ---
Pt. is awake and welcomes my visit. Pt. is pleasant and is known to this email marketing coordinator from her previous hospital visit. Pt. verbalizes her reason for being readmitted. Pt. displays evidence of being aware and engaged. Prayed with Pt. as she is awaiting surgery. Pt. verbalized gratitude for the spiritual care visit and welcomed this email marketing coordinator to return tomorrow.
--- NOTE | 2023-04-03 16:53 | NUR ---
shift summary PT HAS BEEN NPO T/O SHIFT IN PREPERATION FOR SURGERY TONIGHT. SHE AMBULATES WELL IN THE ROOM AT THIS TIME. SHE HAS AN INCREASE IN PAIN TO THE LEFT HIP WITH LARGE AMOUNT OF SWELLING AROUND INCISION. PT IS EXCITED FOR PROCEDURE TONIGHT.
--- NOTE | 2023-04-03 19:23 | NUR ---
LEFT FOR SURGERY PT LEFT WITH PACU @1900
--- NOTE | 2023-04-03 22:43 | NUR ---
ARRIVAL FROM RECOVERY PT ARRIVED FROM RECOVERY IN NO DISTRESS. A/OX4, ON 2L VIA NC. REPORTS 7/10 PAIN, BUT REPORTS IT IS TOLLERABLE. PICCO IS C/D/I, AND COMPRESSED. CIRCULATION AND SENSATION REMAINS INTACT IN LLE.
[2023-04-04 00:02] VITALS: BP 90/53
[2023-04-04 01:11] VITALS: BP 100/61
[2023-04-04 02:01] VITALS: BP 96/58
[2023-04-04 05:10] LABS: Hematocrit 32.1 % (33.0-51.0); Hemoglobin 9.8 g/dL (11.5-16.0); Mean Corpuscular HGB 29.9 pg (26.0-34.0); Mean Corpuscular HGB Conc 30.5 g/dL (31.5-36.5); Mean Corpuscular Volume 98 fL (80-100); Mean Platelet Volume 9.5 fL (9.1-12.4); Platelet Count 323 K/mm3 (150-400); RDW Coefficient Variation 14.3 % (11.7-14.2); RDW Standard Deviation 51.7 fL (35.1-46.3); Red Blood Cell Count 3.28 M/mm3 (3.80-5.20); White Blood Cell Count 2.05 K/mm3 (4.00-11.30)
--- NOTE | 2023-04-04 05:14 | NUR ---
SHIFT SUMMARY POD1 WASHOUT OF L HIP. PICCO IS C/D/I. SENSATION AND CIRCULATION REMAINS INTACT IN LLE. VSS, SOME HYPOTENTION NOTED POST OP, PT REPORTS NO SYMPTOMS. PT ABLE TO AMBULATE TO BSC, VOIDING W/O DIFFICULTY. TOLLERATING PO INTAKE W/O N/V. MEDICATED FOR PAIN WITH PRN'S WITH GOOD RESULTS, PT WAS ABLE TO SLEEP POST OP. NO ACUTE EVENTS NOTED T/O THE NIGHT. PLAN FOR PT TODAY AND D/C HOME
[2023-04-04 05:18] VITALS: BP 122/74
[2023-04-04 06:31] LABS: Bun/Creatinine Ratio 24.8 (12.0-20.0); Calcium, Blood 10.4 mg/dL (8.5-10.1); Creatinine, Blood 0.64 mg/dL (0.40-1.00); Potassium, Blood 4.6 mmol/L (3.5-5.5)
[2023-04-04 07:18] VITALS: BP 134/86
--- NOTE | 2023-04-04 14:45 | NUR ---
discharge POD 1 I&D L HIP PT PAIN CONTROLLED PER EMAR. DRESSING CDI. EDUCATED PT ON KEEPING DRESSIGN CLEAN AND DRY. EDUCATED ON THE IMPORTANCE OF KEEPING THE INCISION CLEAN AND DRY AND SPOKE WITH HER ABOUT HAND WASHING. PT ENCOURAGED TO CONTINUE FOLLOWING ELECTIVE ORTHO PROGRAM BEFORE. FURTHER EDUCATION GIVEN ABOUT USING WALKER WITH ALL AMBULATION. DENIES FURTHER QUESTIONS AT THIS TIME.
== END 2023-04-04 14:48 | disposition home or self-care (01) | DRG 902 ==
LOC: ER 11:07 → SURS 17:52 → ERHOLD 17:52 → SURS 20:05
PROVIDERS: Internal Medicine; Nurse Practitioner Acute Care; Orthopaedic Surgery; Physician Assistant; ADMIT Hospitalist
PROC: 0JBM0ZZ Excision of Left Upper Leg Subcutaneous Tissue and Fascia, Open Approach (ICD-10-PCS; principal; 2023-04-03 22:30)
DX: M96.830 Postprocedural hemorrhage of a musculoskeletal structure following a musculoskeletal system procedure (principal); D62 Acute posthemorrhagic anemia; F11.20 Opioid dependence, uncomplicated; I42.2 Other hypertrophic cardiomyopathy; Y83.8 Other surgical procedures as the cause of abnormal reaction of the patient, or of later complication, without mention of misadventure at the time of the procedure; F41.9 Anxiety disorder, unspecified; G89.29 Other chronic pain; M96.842 Postprocedural seroma of a musculoskeletal structure following a musculoskeletal system procedure; F32.A Depression, unspecified; Z66 Do not resuscitate; E78.5 Hyperlipidemia, unspecified; M79.7 Fibromyalgia; M54.9 Dorsalgia, unspecified; G43.909 Migraine, unspecified, not intractable, without status migrainosus; M81.0 Age-related osteoporosis without current pathological fracture; G25.81 Restless legs syndrome; N20.0 Calculus of kidney; I10 Essential (primary) hypertension; Z79.899 Other long term (current) drug therapy; Z91.030 Bee allergy status; Z91.038 Other insect allergy status; Z88.0 Allergy status to penicillin; Z88.8 Allergy status to other drugs, medicaments and biological substances; Z91.048 Other nonmedicinal substance allergy status; Z87.891 Personal history of nicotine dependence; Z86.73 Personal history of transient ischemic attack (TIA), and cerebral infarction without residual deficits; Z98.1 Arthrodesis status; Z90.49 Acquired absence of other specified parts of digestive tract
CPT/HCPCS: 36415; 73502; 80048; 80053; 82947; 85014; 85018; 85025; 85027; 87070; 87075; 87205; 93971; 97110; 97116; 97162; 99285-25; A9270; J0690; J1100; J1170; J2250; J2371; J2405; J2704; J3010; J3370; J7030; J7120

== ENCOUNTER 2023-04-23 11:49 | Emergency (ER) | payer OTHER ==
[~2023-04-23] VITALS: Ht 160 cm; Wt 77.1 kg
[~2023-04-23 11:49] MED LIST changes: +HYDROCODONE-AC1 EA19 PO; +Norvasc10 MG PO; +ROPI.25 PO
[2023-04-23] MEDS ORDERED: NEURONTIN300 MG PO ×2 (13:58)
[2023-04-23 15:45] VITALS: BP 126/76
[2023-04-27] MEDS ORDERED: Cyclobenzaprine5 MG PO ×2 (14:07)
== END 2023-04-23 15:56 | disposition home or self-care (01) ==
LOC: ER 11:49
DX: T84.021A Dislocation of internal left hip prosthesis, initial encounter (principal); E11.9 Type 2 diabetes mellitus without complications; I10 Essential (primary) hypertension; Y79.2 Prosthetic and other implants, materials and accessory orthopedic devices associated with adverse incidents; X50.1XXA Overexertion from prolonged static or awkward postures, initial encounter; Z91.030 Bee allergy status; Z88.0 Allergy status to penicillin; Z88.1 Allergy status to other antibiotic agents; Z88.8 Allergy status to other drugs, medicaments and biological substances; Z79.899 Other long term (current) drug therapy; Z87.891 Personal history of nicotine dependence
CPT/HCPCS: 27250; 73501; 73502; 99152; 99153; 99284-25; J1885; J2704; J3010; J7030

== ENCOUNTER 2023-04-25 11:48 | Observation (INO) | payer OTHER ==
[~2023-04-25] VITALS: Ht 160 cm; Wt 81.4 kg
[~2023-04-25 11:48] MED LIST changes: +NEURONTIN300 MG PO
[2023-04-25 13:20] LABS: BASOPHILS ABSOLUTE AUTO 0.08 K/mm3 (0.00-0.23); BASOPHILS PERCENT AUTO 1 % (0-2); EOSINOPHILS ABSOLUTE AUTO 0.24 K/mm3 (0.00-0.68); EOSINOPHILS PERCENT AUTO 4 % (0-6); Hematocrit 33.7 % (33.0-51.0); Hemoglobin 10.6 g/dL (11.5-16.0); IMMATURE GRAN ABSOLUTE AUTO 0.02 K/mm3 (0.00-0.10); IMMATURE GRAN PERCENT AUTO 0 % (0-1); LYMPHOCYTES ABSOLUTE AUTO 1.89 K/mm3 (0.84-5.20); LYMPHOCYTES PERCENT AUTO 32 % (21-46); MONOCYTES ABSOLUTE AUTO 0.52 K/mm3 (0.16-1.47); MONOCYTES PERCENT AUTO 9 % (4-13); Mean Corpuscular HGB 28.7 pg (26.0-34.0); Mean Corpuscular HGB Conc 31.5 g/dL (31.5-36.5); Mean Corpuscular Volume 91 fL (80-100); Mean Platelet Volume 9.8 fL (9.1-12.4); NEUTROPHILS ABSOLUTE AUTO 3.21 K/mm3 (1.96-9.15); NEUTROPHILS PERCENT AUTO 54 % (41-73); Platelet Count 337 K/mm3 (150-400); RDW Coefficient Variation 13.9 % (11.7-14.2); RDW Standard Deviation 47.2 fL (35.1-46.3); Red Blood Cell Count 3.69 M/mm3 (3.80-5.20); White Blood Cell Count 5.96 K/mm3 (4.00-11.30)
[2023-04-25 13:40] LABS: Albumin, Blood 3.3 g/dL (3.4-5.0); Albumin/Globulin Ratio 0.9 (0.8-1.8); Bilirubin, Total 0.2 mg/dL (0.1-1.0); Bun/Creatinine Ratio 28.2 (12.0-20.0); Calcium, Blood 10.9 mg/dL (8.5-10.1); Creatinine, Blood 0.57 mg/dL (0.40-1.00); Globulin, Blood 3.5 g/dL (2.2-4.0); Potassium, Blood 4.4 mmol/L (3.5-5.5); Total Protein, Blood 6.8 g/dL (6.4-8.2)
[2023-04-25 20:23] VITALS: BP 141/75
[2023-04-26 05:35] VITALS: BP 147/85
--- NOTE | 2023-04-26 05:41 | NUR ---
SHIFT SUMMARY SINCE ARRIVAL TO UNIT AT 1999 PT HAS BEEN RESTING. PAIN HAS BEEN MANAGED PER EMAR. PT USED BED MAYO A COUPLE OF TIMES DURING THE NIGHT. PT IS PLEASENT AND COOPERATIVE. DENIES N/T IN EXT'S. CONT BIOX. VSS. NO OTHER CONCERNS AT THIS TIME. CALL LIGHT WITHIN REACH
[2023-04-26 07:17] VITALS: BP 141/90
--- NOTE | 2023-04-26 10:34 | NUR ---
"Spiritual Care | Pt. Request Pt. is awake in bed and welcomes my visit. Pt. verbally recognizes this chapalin from previous visits to the hospital, Pt. displays evidence of mild anxiety and real frustration regading her condition. Pt. verbalizes that there seems to be no real plan of care moving forward, and she feels the pressure of needing to get back to work. Listen with empathy and a calming presence. Pt. welcomed prayer. Prayed with Pt. Pt. verbalized gratitude for the spiritual care visit."
[2023-04-26 15:00] VITALS: BP 113/67
--- NOTE | 2023-04-26 15:30 | NUR ---
PATIENT WAS FOUND ROAMING IN HER ROOM WITHOUT STAFF, USING THE CALL LIGHT, AND WITHOUT A WALKER BY THIS NURSE AND KAYY MOODY. PATIENT WAS RE-EDUCATED BY THIS NURSE ON THE USE OF HER CALL LIGHT AND THAT SHE CAN NOT BE INDEPENDENT IN THE ROOM PER HOSPITAL POLICY AND COULD LEAD HER TO FALL. PATIENT RESPONDED STATING "IT WAS RIDICULOUS I HAD TO WAIT SO LONG TO GET A DIET PEPSI!". THIS NURSE THEN EXPLAINED TO THE PATIENT THAT WHILE THE STAFF STRIVES TO RESPOND TO CALL LIGHTS PROMPTLY, IT'S IMPORTANT TO UNDERSTAND THAT STAFF HAVE MORE THAN ONE PATIENT TO TAKE CARE OF AT A TIME. PATIENT CONTINUED TO STATE "I STILL THINK IT WAS RIDICULOUS". PATIENT IS NOW LAYING IN BED WITH CALL LIGHT IN REACH AND BED ALARM IN PLACE A PRECAUTION FOR PATIENT SAFETY.
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
[2023-04-26 20:14] VITALS: BP 121/69
--- NOTE | 2023-04-27 05:04 | NUR ---
SHIFT SUMMARY PT SLEPT T/O NIGHT. PAIN MANAGED PER EMAR. TOLERATING PO INTAKE, VOIDING. VSS. PLAN TO D/C TODAY. NO OTHER CONCERNS AT THIS TIME. CALL LIGHT WITHIN REACH
[2023-04-27 06:02] VITALS: BP 130/90
[2023-04-27 07:25] VITALS: BP 115/69
[2023-04-27 09:36] LABS: Hematocrit 31.7 % (33.0-51.0); Hemoglobin 9.7 g/dL (11.5-16.0)
[2023-04-27] MEDS ORDERED: Cyclobenzaprine5 MG PO (14:07)
--- NOTE | 2023-04-27 15:17 | NUR ---
DISCHARGE PT LEFT VIA WHEELCHAIR. ALL BELONGINGS WITH PATIENT. EDUCATED PATIENT ON MAINTIANING GOOD BODY POSITION WHILE SITTING. SHE REPORTS REACHING AND POSITIONING HERSELF AT STRANGE ANGLES WHILE WATCHING TV. PT VERBALIZES UNDERSTANDING OF CONTINUING TO FOLLOW RECCOMENDATIONS PER OUTPATIENT THERAPY AND FOLLOW ELECTIVE PROCEDURE GUIDLINES FROM INITIAL SURGERY. PAIN CONTROLLED PER EMAR. PT DENIED FURTHER QUESTIONS AT THIS TIME. AMBULATES WELL WITH WALKER IN ROOM.
== END 2023-04-27 15:15 | disposition home or self-care (01) ==
LOC: ER 11:48 → SURS 11:49
PROVIDERS: Physician Assistant; Student in an Organized Health Care Education/Training Program; ADMIT Internal Medicine
DX: S70.02XA Contusion of left hip, initial encounter (principal); I42.1 Obstructive hypertrophic cardiomyopathy; I10 Essential (primary) hypertension; E78.5 Hyperlipidemia, unspecified; F41.9 Anxiety disorder, unspecified
CPT/HCPCS: 27265; 36415; 72192; 73502; 80053; 85014; 85018; 85025; 94762; 96374-59; 96375; 96376; 96376-59; 97110; 97116; 97162; 97530; 99152; 99153; 99285-25; A9270; G0378; J1170; J1885; J2704; J3010

== ENCOUNTER 2023-05-11 16:39 | Emergency (ER) | payer OTHER ==
[~2023-05-11] VITALS: Ht 160 cm; Wt 81.7 kg
[2023-05-11 20:00] VITALS: BP 112/68
== END 2023-05-11 20:38 | disposition home or self-care (01) ==
LOC: ER 16:39
DX: T84.021A Dislocation of internal left hip prosthesis, initial encounter (principal); X58.XXXA Exposure to other specified factors, initial encounter; Z88.8 Allergy status to other drugs, medicaments and biological substances; Z88.0 Allergy status to penicillin; Z88.1 Allergy status to other antibiotic agents; Z91.030 Bee allergy status; Z79.899 Other long term (current) drug therapy; E11.9 Type 2 diabetes mellitus without complications; I10 Essential (primary) hypertension; E78.5 Hyperlipidemia, unspecified; J45.909 Unspecified asthma, uncomplicated; Z87.891 Personal history of nicotine dependence
CPT/HCPCS: 27265; 73501; 96374-59; 96375-59; 99152; 99153; 99284-25; A9270; J1170; J2405; J2704; J7030

== ENCOUNTER 2023-05-15 17:30 | Inpatient (IN) | payer OTHER ==
[~2023-05-15] VITALS: Ht 160 cm; Wt 85.5 kg
[~2023-05-15 17:30] MED LIST changes: -ROPI.25 PO; +ROPINIROLE HCL4 M1 PO
[2023-05-15] MEDS ORDERED: FentaNYL Citrate 50 MCG/ML 2 ML Injection IV ONE ×4 (18:35→23:50)
[2023-05-15] MEDS ORDERED: Propofol 10mg/ml 20 ml Vial (Procedural) IV SCH ×2 (19:25→23:20)
[2023-05-15] MEDS ORDERED: NS 1,000 ML IV SCH ×2 (19:25→23:20)
[2023-05-15] MEDS ORDERED: Ketorolac Tromethamine 30mg Vial IV ONE (21:30)
[2023-05-15] MEDS ORDERED: Ondansetron HCl 2 MG / ML 2ML Vial IV ONE (21:45)
[2023-05-15] MEDS ORDERED: RX Prepack 6 Tabs Oxycodone 5mg UD ONE (22:10)
[2023-05-15] MEDS ORDERED: FentaNYL Citrate 50 MCG/ML 2 ML Injection IM ONE (23:10)
[2023-05-16] MEDS ORDERED: FLU VACC QS2023-24(6MOS UP)/PF 60 MCG/0.5 ML SYRINGE IM ONE (00:15)
[2023-05-16] MEDS ORDERED: Ondansetron 4 MG SoluTab MM PRN (01:50)
[2023-05-16] MEDS ORDERED: FentaNYL Citrate 50 MCG/ML 2 ML Injection IV PRN (01:50)
[2023-05-16] MEDS ORDERED: HydrALAZINE HCl 20 MG / ML 1ML Vial IV PRN (01:50)
[2023-05-16] MEDS ORDERED: Ondansetron HCl 2 MG / ML 2ML Vial IV PRN (01:50)
[2023-05-16] MEDS ORDERED: Cyclobenzaprine HCl 10 MG Tab PO PRN (01:50)
[2023-05-16 03:18] VITALS: BP 157/97
[2023-05-16] MEDS ORDERED: HYDROmorphone HCl/Pf 1MG SYR IV PRN ×2 (03:35→09:10)
[2023-05-16 06:03] LABS: BASOPHILS ABSOLUTE AUTO 0.08 K/mm3 (0.00-0.23); BASOPHILS PERCENT AUTO 1 % (0-2); EOSINOPHILS ABSOLUTE AUTO 0.16 K/mm3 (0.00-0.68); EOSINOPHILS PERCENT AUTO 2 % (0-6); Hematocrit 33.3 % (33.0-51.0); Hemoglobin 10.2 g/dL (11.5-16.0); IMMATURE GRAN ABSOLUTE AUTO 0.02 K/mm3 (0.00-0.10); IMMATURE GRAN PERCENT AUTO 0 % (0-1); LYMPHOCYTES ABSOLUTE AUTO 1.18 K/mm3 (0.84-5.20); LYMPHOCYTES PERCENT AUTO 15 % (21-46); MONOCYTES ABSOLUTE AUTO 0.69 K/mm3 (0.16-1.47); MONOCYTES PERCENT AUTO 9 % (4-13); Mean Corpuscular HGB 27.1 pg (26.0-34.0); Mean Corpuscular HGB Conc 30.6 g/dL (31.5-36.5); Mean Corpuscular Volume 88 fL (80-100); NEUTROPHILS ABSOLUTE AUTO 5.55 K/mm3 (1.96-9.15); NEUTROPHILS PERCENT AUTO 72 % (41-73); Platelet Count 287 K/mm3 (150-400); RDW Coefficient Variation 14.8 % (11.7-14.2); RDW Standard Deviation 48.6 fL (35.1-46.3); Red Blood Cell Count 3.77 M/mm3 (3.80-5.20); White Blood Cell Count 7.68 K/mm3 (4.00-11.30)
--- NOTE | 2023-05-16 06:07 | NUR ---
SHIFT SUMMARY CHRISTINA ARRIVED FROM THE ED AT 0210. SHE WAS ALERT AND FULLY ORIENTED. PT IS HERE BECAUSE HER LEFT HIP CONTIUES TO DISLOCATE. IT WAS SET IN THE ED TWICE ON DAY SHIFT. PT ARRIVED IN SEVERE PAIN, AND WAS MEDICATED WITH THE AVAILABLE PAIN MEDS, 25MIC OF FENTANYL WAS NOT ENOUGH FOR THIS PT. HOSPITALIST NOTIFIED, ORDER FOR DILAUDED RECIEVED. PT IS PLEASANT DESPITE BEING PAINFUL. SHE HAS SOME CONCERNS REGARDING WHEN SHE WILL HAVE SURGERY AND WHO THE SURGEON WILL BE. PT RESTING IN BED AT THIS TIME AT A LOW POSITION WITH THE CALL LIGHT IN REACH.
[2023-05-16 06:19] LABS: Bilirubin, Total 0.4 mg/dL (0.1-1.0); Calcium, Blood 9.6 mg/dL (8.5-10.1); Creatinine, Blood 0.5 mg/dL (0.40-1.00); Globulin, Blood 3.1 g/dL (2.2-4.0); Potassium, Blood 3.4 mmol/L (3.5-5.5); Total Protein, Blood 6.1 g/dL (6.4-8.2)
[2023-05-16] MEDS ORDERED: Potassium Chloride 40 MEQ in NS 250 ML IV ONE (07:50)
[2023-05-16] MEDS ORDERED: NS 250 ML IV PRN (08:00)
[2023-05-16] MEDS ORDERED: Carvedilol 25 MG Tab PO SCH (08:00)
[2023-05-16 08:08] VITALS: BP 177/93
[2023-05-16] MEDS ORDERED: AmLODIPine Besylate 5 MG Tab PO SCH (09:00)
[2023-05-16] MEDS ORDERED: DULoxetine HCL 60 MG Capsule DR PO SCH (09:00)
[2023-05-16] MEDS ORDERED: Gabapentin 300 MG Cap PO SCH (09:00)
[2023-05-16] MEDS ORDERED: Enoxaparin 40 MG/0.4 ML SYR SC SCH (09:00)
[2023-05-16] MEDS ORDERED: Acetaminophen 325 MG TABLET PO STA (09:10)
[2023-05-16] MEDS ORDERED: Acetaminophen 325 MG TABLET PO PRN (10:00)
[2023-05-16 12:03] VITALS: BP 144/78
[2023-05-16 15:42] VITALS: BP 117/73
--- NOTE | 2023-05-16 18:09 | NUR ---
SHIFT SUMMARY PT A&OX4, VSS, BEDREST, TOLERATING PO, VOIDING W/ PUREWICK IN PLACE, AND PAIN MANAGED PER EMAR. ROUNDED ON PT THIS SHIFT AND VERBALIZED HE WOULD PUT ORDER IN FOR CT. PER , TO ROUND ON PT TOMORROW TO ASSESS AND PLAN FURTHER FOR SURGICAL INTERVENTION. CALL LIGHT WITHIN REACH AND PT ABLE TO MAKE NEEDS KNOWN.
[2023-05-16 19:44] VITALS: BP 119/73
[2023-05-16] MEDS ORDERED: PRAZOSIN HCL PO SCH (21:00)
[2023-05-16] MEDS ORDERED: TraZODone HCl 100 MG Tab PO SCH (21:00)
[2023-05-16] MEDS ORDERED: rOPINIRole HCl 2 MG Tab PO SCH (21:00)
[2023-05-16] MEDS ORDERED: Prazosin HCl 1 MG Cap PO SCH (21:00)
[2023-05-17 04:55] VITALS: BP 118/65
--- NOTE | 2023-05-17 05:20 | NUR ---
SHIFT SUMMARY CHRISTINA WAS ALERT AND FULLY ORIENTED ON ASSESSMENT. PT IS STILL DEALING WITH PAIN MANAGEMENT, HOWEVER WITH CHANGES TO MEDS MADE ON DAY SHIFT, PT PAIN IS WELL MANAGED. PT DID HAVE A SHARP PAIN DURING THE NIGHT AND IS AFRAID THAT THE HIP MIGHT HAVE DISLOCATED AGAIN, BUT THE PAIN RETURNED TO NORMAL SHORTLY AFTER, WE OPTED TO WAIT TO FURTHER EVALUATE THE HIP UNTIL DAY SHIFT D/T CONCERNS OF AGGREVATING THE PAIN, OR POTENTIALLY CAUSING IT TO DISLOCATE.
[2023-05-17 06:23] LABS: Hematocrit 31.4 % (33.0-51.0); Hemoglobin 9.7 g/dL (11.5-16.0); Mean Corpuscular HGB 27.9 pg (26.0-34.0); Mean Corpuscular HGB Conc 30.9 g/dL (31.5-36.5); Mean Corpuscular Volume 90 fL (80-100); Mean Platelet Volume 10.4 fL (9.1-12.4); Platelet Count 265 K/mm3 (150-400); RDW Standard Deviation 49.4 fL (35.1-46.3); Red Blood Cell Count 3.48 M/mm3 (3.80-5.20); White Blood Cell Count 5.12 K/mm3 (4.00-11.30)
[2023-05-17 06:38] LABS: Bun/Creatinine Ratio 32.7 (12.0-20.0); Calcium, Blood 10.2 mg/dL (8.5-10.1); Creatinine, Blood 0.64 mg/dL (0.40-1.00); Potassium, Blood 4.5 mmol/L (3.5-5.5)
[2023-05-17 06:43] LABS: BASOPHILS PERCENT MAN 0 % (0-2); EOSINOPHILS ABSOLUTE MAN 0.05 K/mm3 (0.00-0.68); EOSINOPHILS PERCENT MAN 1 % (0-6); LYMPHOCYTES % ATYPICAL MANUAL 2 % (0-0); LYMPHOCYTES PERCENT MAN 41 % (21-46); MONOCYTES ABSOLUTE MAN 0.35 K/mm3 (0.16-1.47); MONOCYTES PERCENT MAN 7 % (4-13); SEG NEUTROPHILS PERCENT MAN 49 % (41-73); TOTAL CELLS COUNTED 100
[2023-05-17 07:29] VITALS: BP 95/54
[2023-05-17 09:55] VITALS: BP 108/70
--- NOTE | 2023-05-17 11:25 | NUR ---
"Spiritual Care | Pt. request Pt. is resting bust responds when I enter the room by welcoming my visit. Pt. is a readmit, who this automotive tire worker has seen on previous hospitalizations. Pt. is unsettled by complications from a previous procedure. Listen with empathy and a calming presence. Pt. displays evidence of being hopeful that with a diffierent surgeon her case can be resolved. Pt. verbalized concerns about needing to be able to get back to work. Pt. has veerbalized that she is a woman of evonne. Prayed with the Pt. Pt. verbalized gratitude for the spiritual care visit and requested this automotive tire worker to visit after her surgery."
[2023-05-17 16:04] VITALS: BP 109/74
--- NOTE | 2023-05-17 17:43 | NUR ---
SHIFT SUMMARY ROUNDED THIS AM AND PT TO FOLLOW UP OUTPATIENT FOR SURGICAL INTERVENTION. PLAN TO DISCHARGE HOME TOMORROW. PT BP LOW THIS AM, BUT ASYMPTOMATIC. BP IMPROVED T/O SHIFT. PT CONT TO C/O PAIN AND MEDICATED PER EMAR. PUREWICK REMOVED AND PT AGREEABLE TO USE BEDPAN. NO OTHER ACUTE CHANGES THIS SHIFT. CALL LIGHT WITHIN REACH AND PT ABLE TO MAKE NEEDS KNOWN.
[2023-05-17 19:39] VITALS: BP 137/72
--- NOTE | 2023-05-18 04:00 | NUR ---
SHIFT SUMMARY PT A&O X4, COOPERATIVE WITH CARE. PT TEARFUL AT TIMES DO TO FEAR REGARDING HER SITUATION. PT EXPRESSES PTSD OVER NUMEROUS DISLOCATIONS. PT EXPRESSES PAIN TO LEFT HIP ESPECIALLY WITH MOVEMENT. MEDICATED PER EMAR FOR PAIN. PT HAS LEG BRACE IN PLACE TO LEFT LEG. PT HAS PUREWICK IN PLACE, PATENT, AND DRAINING YELLOW URINE. BED KEPT IN LOWEST POSITION WITH CALL LIGHT WITHIN REACH.
[2023-05-18 05:12] VITALS: BP 127/59
[2023-05-18 06:01] LABS: BASOPHILS ABSOLUTE AUTO 0.06 K/mm3 (0.00-0.23); BASOPHILS PERCENT AUTO 1 % (0-2); EOSINOPHILS ABSOLUTE AUTO 0.25 K/mm3 (0.00-0.68); EOSINOPHILS PERCENT AUTO 4 % (0-6); Hematocrit 33.1 % (33.0-51.0); Hemoglobin 10.2 g/dL (11.5-16.0); IMMATURE GRAN ABSOLUTE AUTO 0.02 K/mm3 (0.00-0.10); IMMATURE GRAN PERCENT AUTO 0 % (0-1); LYMPHOCYTES PERCENT AUTO 35 % (21-46); MONOCYTES ABSOLUTE AUTO 0.62 K/mm3 (0.16-1.47); MONOCYTES PERCENT AUTO 10 % (4-13); Mean Corpuscular HGB 27.8 pg (26.0-34.0); Mean Corpuscular HGB Conc 30.8 g/dL (31.5-36.5); Mean Corpuscular Volume 90 fL (80-100); Mean Platelet Volume 10.5 fL (9.1-12.4); NEUTROPHILS PERCENT AUTO 50 % (41-73); Platelet Count 264 K/mm3 (150-400); RDW Coefficient Variation 14.6 % (11.7-14.2); RDW Standard Deviation 48.6 fL (35.1-46.3); Red Blood Cell Count 3.67 M/mm3 (3.80-5.20); White Blood Cell Count 6.05 K/mm3 (4.00-11.30)
[2023-05-18 06:37] LABS: Bun/Creatinine Ratio 23.5 (12.0-20.0); Calcium, Blood 10.3 mg/dL (8.5-10.1); Creatinine, Blood 0.68 mg/dL (0.40-1.00); Potassium, Blood 4.4 mmol/L (3.5-5.5)
[2023-05-18 07:16] VITALS: BP 117/85
--- NOTE | 2023-05-18 09:00 | NUR ---
pt laying in bed awake a/ox4, very talkative, high anxiety with her hip situation, coopertive with care, follows commands well, lungs are clear t/o, on r/a, resp even and unlabored, no cough noted, hrr, no edema noted, ppp+2, cap refill <3 sec, vs stable, afebrile, iv is power glide to marc site is clear and patent, btx4, abd flat soft nontender, voids via purwick at this time, urine is clear yellow, skin c/w/d, moves upper arms, is afraid to move legs as left hip has dislocated a number of times, federico, call light in reach.
[2023-05-18] MEDS ORDERED: LORazepam 1 MG Tab PO PRN (09:10)
--- NOTE | 2023-05-18 09:15 | NUR ---
pt becoming more upset the more she speaks about what is going on with her hip dislocation, Dr. lOmos in room and pt was tearful and highly agitated, stating she can not return home like this, she can't manage the pain, and doesn't really have help, recieved order for breonna. call light in reach.
[2023-05-18] MEDS ORDERED: HYDROcodone 5-APAP 325 TAB PO PRN (13:50)
[2023-05-18] MEDS ORDERED: HYDROmorphone HCl/Pf 1MG SYR IV PRN ×3 (13:50→21:40)
[2023-05-18] MEDS ORDERED: Lidocaine 4% 1 Patch TOP SCH (14:00)
[2023-05-18 16:53] VITALS: BP 120/56
--- NOTE | 2023-05-18 20:00 | NUR ---
pt became very agitated and threatened to go ama if her pain meds weren't put back how they were, was able to calm her, and was willing to give her the pain meds she requested. PT worked with her and was not able to get her leg off the bed and she reports she felt a pop. leg is very swollen and hard. no further changes this shift. call light in reach.
[2023-05-18 20:08] VITALS: BP 118/77
[2023-05-19 02:28] VITALS: BP 136/72
--- NOTE | 2023-05-19 04:37 | NUR ---
SHIFT SUMMARY PT UPSET AT START OF SHIFT SHE ASKED ME WHAT HER CURRENT PAIN REGIMEN IS. I TOLD HER 0.5-2 MG DILAUDID Q4 HOURS. SHE STATED SHE USED TO BE Q3 HOURS AND WANTED TO BE DISCHARGED HOME IF THIS COULD NOT BE RESTARTED. PATIENT WORKED WITH PT YESTERDAY WHO ADVISED HER TO NOT GO HOME SHE HAS STEPS THAT WOULD MAKE HER CURRENT VERY LIMITED ROM UNSAFE. LISTENED TO PATIENTS CONCERNS AND TOLD HER I WOULD ASK THE ATHLETE MANAGER PHYSICIAN TO HAVE HER DILAUDID DECREASED TO Q3 HOURS. DR HEAD ORDERED 0.5-1 MG Q3. PATIENT STATES THIS IS WORKING TO CONTROL PAIN MANAGEMENT. THE 1 MG BRINGING HER PAIN DOWN TO A 4/10 FROM A 9/10.
[2023-05-19 06:06] LABS: BASOPHILS ABSOLUTE AUTO 0.05 K/mm3 (0.00-0.23); BASOPHILS PERCENT AUTO 1 % (0-2); EOSINOPHILS ABSOLUTE AUTO 0.22 K/mm3 (0.00-0.68); EOSINOPHILS PERCENT AUTO 4 % (0-6); Hemoglobin 10.4 g/dL (11.5-16.0); IMMATURE GRAN ABSOLUTE AUTO 0.02 K/mm3 (0.00-0.10); IMMATURE GRAN PERCENT AUTO 0 % (0-1); LYMPHOCYTES ABSOLUTE AUTO 1.46 K/mm3 (0.84-5.20); LYMPHOCYTES PERCENT AUTO 27 % (21-46); MONOCYTES ABSOLUTE AUTO 0.64 K/mm3 (0.16-1.47); MONOCYTES PERCENT AUTO 12 % (4-13); Mean Corpuscular HGB 27.2 pg (26.0-34.0); Mean Corpuscular HGB Conc 30.6 g/dL (31.5-36.5); Mean Corpuscular Volume 89 fL (80-100); Mean Platelet Volume 10.1 fL (9.1-12.4); NEUTROPHILS PERCENT AUTO 56 % (41-73); Platelet Count 266 K/mm3 (150-400); RDW Coefficient Variation 14.5 % (11.7-14.2); RDW Standard Deviation 47.3 fL (35.1-46.3); Red Blood Cell Count 3.83 M/mm3 (3.80-5.20); White Blood Cell Count 5.39 K/mm3 (4.00-11.30)
[2023-05-19 06:54] LABS: Albumin, Blood 2.9 g/dL (3.4-5.0); Albumin/Globulin Ratio 0.9 (0.8-1.8); Bilirubin, Total 0.4 mg/dL (0.1-1.0); Bun/Creatinine Ratio 26.7 (12.0-20.0); Calcium, Blood 10.8 mg/dL (8.5-10.1); Creatinine, Blood 0.6 mg/dL (0.40-1.00); Globulin, Blood 3.3 g/dL (2.2-4.0); Total Protein, Blood 6.2 g/dL (6.4-8.2)
[2023-05-19 07:40] VITALS: BP 116/85
[2023-05-19] MEDS ORDERED: HYDROmorphone HCl/Pf 1MG SYR IV PRN (11:10)
[2023-05-19] MEDS ORDERED: OxyCODONE 5 mg/Acetamin 325 mg TABLET PO PRN (12:55)
[2023-05-19 15:37] VITALS: BP 133/86
[2023-05-19 17:34] VITALS: BP 137/83
--- NOTE | 2023-05-19 18:05 | NUR ---
SHIFT SUMMARY- PT ALERT AND ORIENTED. NWB ON THE LEFT NO EXTERNAL ROTATION OR EXTENTION OF THE LEFT HIP. PPT IS CURRENTLY IN BED, CALL LIGHT IN REACH. PT STATED THE PO NORCO WAS INEFFECTIVE AND REFUSED TO TAKE IT. SPOKE TO DR BRODY ABOUT IT AND NORCO WAS DC'D AND PERCOCET WAS ORDERED. THE PERCOCET SEEMS TO WORK WELL FOR THE PT. CURRENT PAIN RATING IS 3/10. SHE SET A GOAL EARLIER WITH THIS RN OF 5/10 TO BE COMFORTABLE. PT IS VISITING WITH HER SO AND HER DOG AT THIS TIME. PALLIATIVE CARE CONSULT PLACED EARLIER IN THE DAY TO ASSIST WITH SYMPTOM MANAGEMENT AND ADVANCED CARE PLANNING THE PT HAS HAD SIX DISLOCATIONS SINCE THE L HIP ARTHROPLASTY. PT NEEDS A REVISION HOWEVER IT CAN NOT BE DONE HERE (PER MD) SHE IS NOT ABLE TO DC HOME PER PHYSICAL THERAPY SHE CAN NOT CLIMB THE STAIRS, AND WITHOUT THE REVISION SHE CAN NOT DO REHAB ON THE HIP IT DISLOCATES TOO EASILY. PT IN BED, CALL LIGHT IN REACH NO S&S OF DISTRESS AT THIS TIME, WILL PASS ON TO NIGHT RN IN BEDSIDE REPORT.
[2023-05-19 20:11] VITALS: BP 119/64
[2023-05-20] MEDS ORDERED: HYDROmorphone HCl/Pf 1MG SYR IV ONE ×2 (04:30→21:50)
[2023-05-20 04:31] VITALS: BP 130/109
[2023-05-20 06:43] LABS: BASOPHILS ABSOLUTE AUTO 0.06 K/mm3 (0.00-0.23); BASOPHILS PERCENT AUTO 1 % (0-2); EOSINOPHILS ABSOLUTE AUTO 0.17 K/mm3 (0.00-0.68); EOSINOPHILS PERCENT AUTO 4 % (0-6); Hematocrit 32.7 % (33.0-51.0); Hemoglobin 10.1 g/dL (11.5-16.0); IMMATURE GRAN ABSOLUTE AUTO 0.01 K/mm3 (0.00-0.10); IMMATURE GRAN PERCENT AUTO 0 % (0-1); LYMPHOCYTES ABSOLUTE AUTO 1.37 K/mm3 (0.84-5.20); LYMPHOCYTES PERCENT AUTO 29 % (21-46); MONOCYTES ABSOLUTE AUTO 0.62 K/mm3 (0.16-1.47); MONOCYTES PERCENT AUTO 13 % (4-13); Mean Corpuscular HGB 27.5 pg (26.0-34.0); Mean Corpuscular HGB Conc 30.9 g/dL (31.5-36.5); Mean Corpuscular Volume 89 fL (80-100); Mean Platelet Volume 10.2 fL (9.1-12.4); NEUTROPHILS ABSOLUTE AUTO 2.55 K/mm3 (1.96-9.15); NEUTROPHILS PERCENT AUTO 53 % (41-73); Platelet Count 277 K/mm3 (150-400); RDW Coefficient Variation 14.6 % (11.7-14.2); RDW Standard Deviation 47.3 fL (35.1-46.3); Red Blood Cell Count 3.67 M/mm3 (3.80-5.20); White Blood Cell Count 4.78 K/mm3 (4.00-11.30)
[2023-05-20 07:03] LABS: Albumin, Blood 2.9 g/dL (3.4-5.0); Albumin/Globulin Ratio 0.9 (0.8-1.8); Bilirubin, Total 0.3 mg/dL (0.1-1.0); Bun/Creatinine Ratio 27.1 (12.0-20.0); Calcium, Blood 10.6 mg/dL (8.5-10.1); Creatinine, Blood 0.63 mg/dL (0.40-1.00); Globulin, Blood 3.1 g/dL (2.2-4.0); Potassium, Blood 4.1 mmol/L (3.5-5.5)
[2023-05-20 07:29] VITALS: BP 115/72
--- NOTE | 2023-05-20 16:26 | NUR ---
SHIFT SUMMARY: PT IS A 68 YEAR OLD FEMALE HERE FOR REOCURRING L ANTERIOR HIP DISLOCATIONS POST PROCEDURE (03/11/23). SHE IS ALERT AND ORIENTED X4 AND HAS ANXIETY AND VOICES PTSD WITH HER HIP DISLOCATING. DR. REYES CAME BY THIS AFTERNOON TO COSULT AFTER DR. GRAVES RECOMMENDED HE CAME AND EVALUATED THE PATIENT. MYSELF AND DR. REYES ASSISTED THE PATIENT OUT OF BED AND AMBULATED WITH HER PART OF HER EVALUATE. PATIENT TOLERATED WELL WITH PAIN. HE ADVISED THAT THE PATIENT HAVE PT WITH ANTERIOR HIP PRECAUTIONS, D/C BEDREST, THE IMMOBLIZER BRACE AND FOR BEST OUTCOME TO BE SEEN BY [facility]; WHETHER THAT BE A TRANFER FROM INPATIENT OR AN OUTPATIENT APPROACH. I CALLED DR. BRODY AND NOTIFIED HIM OF UPDATE. ORDERS GIVEN BY DR. REYES WERE ENTERED. MEDICATING PATIENT NEEDED FOR PAIN MANAGEMENT. SHE IS CURRENTLY IN BED, CALL LIGHT WITHIN REACH, NO SIGNS OR SYMPTOMS OF DISTRESS. PLAN OF CARE ONGOING.
[2023-05-20 19:44] VITALS: BP 110/78
[2023-05-21 04:12] VITALS: BP 123/70
[2023-05-21 05:52] LABS: Hematocrit 34.8 % (33.0-51.0); Hemoglobin 10.7 g/dL (11.5-16.0); Mean Corpuscular HGB 27.5 pg (26.0-34.0); Mean Corpuscular HGB Conc 30.7 g/dL (31.5-36.5); Mean Corpuscular Volume 90 fL (80-100); Mean Platelet Volume 10.5 fL (9.1-12.4); Platelet Count 280 K/mm3 (150-400); RDW Coefficient Variation 14.6 % (11.7-14.2); RDW Standard Deviation 47.4 fL (35.1-46.3); Red Blood Cell Count 3.89 M/mm3 (3.80-5.20); White Blood Cell Count 5.24 K/mm3 (4.00-11.30)
--- NOTE | 2023-05-21 06:27 | NUR ---
Shift Summary Pt is AOx4, currently on bedrest d/t L hip dislocation. She has a purewick in place for voids. Her L hip and L leg were very painful t/o the night and required frequent medication coverage, see emar. Per report the plan is for her to get L hip surgery at [facility]. No acute changes, pt slept on and off t/o the night d/t pain.
[2023-05-21 06:33] LABS: BASOPHILS ABSOLUTE MAN 0.15 K/mm3 (0.00-0.23); BASOPHILS PERCENT MAN 3 % (0-2); EOSINOPHILS ABSOLUTE MAN 0.31 K/mm3 (0.00-0.68); EOSINOPHILS PERCENT MAN 6 % (0-6); LYMPHOCYTES ABSOLUTE MAN 1.99 K/mm3 (0.84-5.20); LYMPHOCYTES PERCENT MAN 38 % (21-46); MONOCYTES ABSOLUTE MAN 0.36 K/mm3 (0.16-1.47); MONOCYTES PERCENT MAN 7 % (4-13); NEUTROPHILS ABSOLUTE MAN 2.41 K/mm3 (1.96-9.15); SEG NEUTROPHILS PERCENT MAN 46 % (41-73); TOTAL CELLS COUNTED 100
[2023-05-21 07:04] LABS: Bun/Creatinine Ratio 29.4 (12.0-20.0); Calcium, Blood 10.7 mg/dL (8.5-10.1); Creatinine, Blood 0.65 mg/dL (0.40-1.00); Potassium, Blood 3.9 mmol/L (3.5-5.5)
[2023-05-21 07:41] VITALS: BP 126/107
--- NOTE | 2023-05-21 14:53 | NUR ---
Spiritual Care Visit. Pt. is awake in bed when she welcomes my visit. Pt. displays evidence of needing to verbalize her prognosis. Listen with empathy and seek to give pastoral input. Pt. displays evidence of understanding and verbalizes her expectation of getting transferred to [facility]. Pt. shares a lengthy life review that focuses on present and past relationships. Pt. became emotional at times. Ask guided questions to help Pt. consider her priorities and encourage self care. Pt. displayed evidence of being comforted and her anxiety is lessened. Prayed with Pt. Pt. verbalized gratitude for the spiritual care visit.
[2023-05-21 15:22] VITALS: BP 129/80
--- NOTE | 2023-05-21 16:41 | NUR ---
SHIFT SUMMARY; PATIENT IS ANXIOUS DURING DAY. VERY VOCAL THAT SHE "WILL SEEK LEGAL ACTION IF ANYONE TRIES TO DISCHARGE HER". PATIENT ASKS REPEATEDLY FOR PAIN MEDICATION AND IS MEDICATED PER EMAR. PT COMES TO ROOM AND EXPLAINS TO FABYT THAT SHE IS NOT GOING TO BE SEEN BY THEM IT IS UNSAFE FOR HER TO AMBULATE PER THERE ASSESSMENTS. PATIENT VERBALIZED UNDERSTANDING. AT THIS TIME STILL WAITING FOR POSSIBLE TRANSFER TO [facility]. WILL REMAIN AVAILABLE FOR THIS PATIENT FOR ANY WANTS OR NEEDS THAT COME UP PRIOR TO SHIFT REPORT AND HAND OFF TO NOC RN
[2023-05-21 19:44] VITALS: BP 113/83
[2023-05-21] MEDS ORDERED: HYDROmorphone HCl/Pf 1MG SYR IV ONE (23:25)
[2023-05-21] MEDS ORDERED: HYDROmorphone HCl/Pf 1MG SYR IV PRN (23:26)
--- NOTE | 2023-05-22 04:35 | NUR ---
SHIFT SUMMARY PT A&OX4 AND ANSWERS QUESTIONS APPROPRIATELY. PT IS HAVING INCREASED PAIN IN LEFT HIP WITH SWELLING IN THE REGION. NO REDNESS OR HEAT FROM LEFT HIP. PT MEDICATED PER EMAR FOR PAIN AND PT REPOSITIONED TO REDUCE PAIN. PT REFUSED PERCOCET WHEN OFFERED STATING, "THIS DOES NOT HELP ME AT ALL." PT MEDICATED WITH DILAUDID Q4 PRN. NO COMPLAINTS OF CP OR SOB. NO ACUTE EVENTS AT THIS TIME. PT LEFT IN A POSITION OF SAFETY WITH FALL PRECAUTIONS IN PLACE AND CALL LIGHT IN REACH.
[2023-05-22 04:51] VITALS: BP 107/90
[2023-05-22 05:28] LABS: Hematocrit 36.7 % (33.0-51.0); Hemoglobin 11.4 g/dL (11.5-16.0); Mean Corpuscular HGB 27.8 pg (26.0-34.0); Mean Corpuscular HGB Conc 31.1 g/dL (31.5-36.5); Mean Corpuscular Volume 90 fL (80-100); Mean Platelet Volume 9.8 fL (9.1-12.4); Platelet Count 265 K/mm3 (150-400); RDW Coefficient Variation 14.4 % (11.7-14.2); White Blood Cell Count 5.45 K/mm3 (4.00-11.30)
[2023-05-22 05:51] LABS: Albumin, Blood 3.1 g/dL (3.4-5.0); Albumin/Globulin Ratio 0.9 (0.8-1.8); Bilirubin, Total 0.4 mg/dL (0.1-1.0); Bun/Creatinine Ratio 28.8 (12.0-20.0); Calcium, Blood 11.1 mg/dL (8.5-10.1); Creatinine, Blood 0.63 mg/dL (0.40-1.00); Globulin, Blood 3.5 g/dL (2.2-4.0); Total Protein, Blood 6.6 g/dL (6.4-8.2)
[2023-05-22 05:55] LABS: BAND PERCENT MAN 1 % (0-8); BASOPHILS PERCENT MAN 0 % (0-2); EOSINOPHILS ABSOLUTE MAN 0.16 K/mm3 (0.00-0.68); EOSINOPHILS PERCENT MAN 3 % (0-6); LYMPHOCYTES % ATYPICAL MANUAL 1 % (0-0); LYMPHOCYTES ABSOLUTE MAN 2.12 K/mm3 (0.84-5.20); LYMPHOCYTES PERCENT MAN 38 % (21-46); MONOCYTES ABSOLUTE MAN 0.43 K/mm3 (0.16-1.47); MONOCYTES PERCENT MAN 8 % (4-13); NEUTROPHILS ABSOLUTE MAN 2.72 K/mm3 (1.96-9.15); SEG NEUTROPHILS PERCENT MAN 49 % (41-73); TOTAL CELLS COUNTED 100
[2023-05-22 07:54] VITALS: BP 120/66
--- NOTE | 2023-05-22 10:31 | NUR ---
DILAUDID PT REQUESTED DILAUDID IV FOR PAIN TREATMENT. DILAUDID 1MG SCANNED AND PREPPED FOR ADMINISTRATION THROUGH HER RIGHT UE POWER GLIDE. PT STATED," i WANT YOU TO SLAM IT IN! iT WORKS BETTER THAT WAY." EDUCATED PT ON THE CORRECT WAY TO GIVE DILAUDID FOR HER SAFETY. PT THEN COMPLAINED THAT IT DIDN'T WORK WELL BECAUSE THIS NURSE DECLINED TO SLAM IT IN. CARE ONGOING.
[2023-05-22] MEDS ORDERED: HYDROmorphone HCl 2 MG Tab PO PRN (11:45)
[2023-05-22 16:11] VITALS: BP 126/77
--- NOTE | 2023-05-22 16:49 | NUR ---
NOTE PT AWAKE AND ALERT. PAIN TO LEFT HIP/LEG. CMS TO LEFT FOOT INTACT. VSS. DILAUDID PO FOR PAIN. PT DOESN'T UNDERSTAND WHY SHE ISN'T GETTING THE MEAD AND PAIN RELIEF THAT SHE DID FROM THE IV ROUTE. SHE IS FEELING JITTERY AND ANXIOUS. HAVE NOT HEARD ABOUT TRANSFER TO [facility] TODAY. BED REST. RIGHT UE POWER GLIDE DRESSING CHANGED PER PROTOCOL. CAPS CHANGED WELL. CARE ONGOING.
[2023-05-22 19:44] VITALS: BP 137/101
[2023-05-22] MEDS ORDERED: HyDROXyzine HCl 25 MG Tab PO PRN (22:40)
--- NOTE | 2023-05-22 22:52 | NUR ---
CALLED HOSPITALIST PT STATES SHE HAS UNCONTROLLABLE ANXIETY. SHE REQUESTED I CALL THE HOSPITALIST. NEW ORDERS IN EMAR. ANXIETY MEDICATION ADMINISTERED. PT DID STATE THAT SHE FEELS HER PAIN CONTROL IS INADEQUATE MULTIPLE TIMES.
--- NOTE | 2023-05-23 04:34 | NUR ---
SHIFT SUMMARY ADMITTED FOR RECURRENT LEFT HIP DISLOCATION. FULL CODE. PLAN IS FOR [facility] OUTPATIENT REPAIR WHEN BED AND EQUIPMENT ARE AVAILABLE. SO FAR SHE IS NOT CONFIDENT SHE CAN MANAGE HER PAIN OR CARE AT HOME. POWERGLIDE IN PLACE. SHE FREQUENTLY IS FOUND SITTING UP ON THE SIDE OF THE BED. SHE IS ON BEDREST. SHE STATES FREQUENTLY THAT HER PAIN AND ANXIETY ARE NOT MANAGED. SEE PREVIOUS NOTE, I DID GET PRN ANXIETY MEDICATION ORDERED THIS SHIFT. SHE IS USING A PUREWICK AT THIS TIME. REGULAR DIET.
[2023-05-23 05:56] VITALS: BP 133/81
[2023-05-23 07:36] VITALS: BP 121/68
[2023-05-23 16:03] VITALS: BP 136/62
[2023-05-23 19:17] VITALS: BP 120/68
--- NOTE | 2023-05-23 19:20 | NUR ---
NO ACUTE CHANGES THIS SHIFT. PT IS VERY TALKATIVE, ANXIOUS, AND EMOTIONAL. THERAPUTIC COMMUNICATION USED TO SUPPORT PT NEEDS. TREATED PAIN AND ANXIETY PER EMAR. WAITING BED AT [facility]. BEDREST. ALERT AND ORIENTED X4.
[2023-05-23] MEDS ORDERED: LORazepam 2 MG/ML 1ML Injection IV ONE (21:40)
[2023-05-24 02:55] VITALS: BP 117/94
--- NOTE | 2023-05-24 04:23 | NUR ---
SHIFT SUMMARY ADMITTED FOR RECURRENT LEFT HIP DISLOCATION. FULL CODE. AWAITING BED AT [facility] FOR SURGICAL INTERVENTION. POWERGLIDE IN RUE. ON BEDREST. ON RA. REGULAR DIET. PUREWICK IN PLACE. MEDICATED FOR ANXIETY AND PAIN.
[2023-05-24 05:56] LABS: Hematocrit 33.9 % (33.0-51.0); Hemoglobin 10.6 g/dL (11.5-16.0); Mean Corpuscular HGB 27.5 pg (26.0-34.0); Mean Corpuscular HGB Conc 31.3 g/dL (31.5-36.5); Mean Corpuscular Volume 88 fL (80-100); Mean Platelet Volume 10.2 fL (9.1-12.4); Platelet Count 261 K/mm3 (150-400); RDW Coefficient Variation 14.3 % (11.7-14.2); RDW Standard Deviation 45.6 fL (35.1-46.3); Red Blood Cell Count 3.86 M/mm3 (3.80-5.20); White Blood Cell Count 4.74 K/mm3 (4.00-11.30)
[2023-05-24 06:16] LABS: Bun/Creatinine Ratio 23.5 (12.0-20.0); Calcium, Blood 11.1 mg/dL (8.5-10.1); Creatinine, Blood 0.68 mg/dL (0.40-1.00); Potassium, Blood 4.1 mmol/L (3.5-5.5)
[2023-05-24 06:17] LABS: BASOPHILS PERCENT MAN 0 % (0-2); EOSINOPHILS ABSOLUTE MAN 0.18 K/mm3 (0.00-0.68); EOSINOPHILS PERCENT MAN 4 % (0-6); LYMPHOCYTES % ATYPICAL MANUAL 4 % (0-0); LYMPHOCYTES ABSOLUTE MAN 1.42 K/mm3 (0.84-5.20); LYMPHOCYTES PERCENT MAN 26 % (21-46); MONOCYTES ABSOLUTE MAN 0.23 K/mm3 (0.16-1.47); MONOCYTES PERCENT MAN 5 % (4-13); NEUTROPHILS ABSOLUTE MAN 2.89 K/mm3 (1.96-9.15); SEG NEUTROPHILS PERCENT MAN 61 % (41-73); TOTAL CELLS COUNTED 100
[2023-05-24 07:40] VITALS: BP 129/68
--- NOTE | 2023-05-24 11:11 | NUR ---
NOTES: PATIENT REPORTS "I WAS TOLD BY DR. HOU THAT SHE IS GOING TO DISCHARGE ME TODAY. I AM NOT HAPPY I AM VERY AXIOUS RIGHT NOW. I NEED AN IV ATIVAN." PATIENT ALSO TOLD THIS RN "I AM GOING TO GET OOB AND WALK IF I FALL SO BIET AND THEY CAN OPEN AND FIXED MY HIP. I AM NOT GOING HOME I LIVE BY MYSELF AT HOME AND I DON'T HAVE HELP." PATIENT MEDICATED c ATARAX FOR ANXIETY. BED ALARM ON FOR SAFETY. NOTIFIED PROTOTYPE MODEL MAKERWENDY RAO AND J2EE ANDROID DEVELOPER c PATIENT ISSUES AND DISCHARGE CONCERNED.
[2023-05-24] MEDS ORDERED: Acetaminophen650 M1 PO (11:48)
--- NOTE | 2023-05-24 11:55 | NUR ---
This RN enter room and introduce myself. Patient yelling at me to get out you can't help me. I explain the need to take IV out to discharge patient to home. Patient states you are not taking it out, I'm going home with it because when I return to the ER, I want to have IV access. I will not use my walker and I will fall and dislocate my hip again. This way I will have pain medication access. I explained that the IV most likely will not work if and when she return to the hospital. It is a greater risk of infection leaving it in. I'm sueing Dr. Adams for having put the wrong size in I don't care, stateds patient.
[2023-05-24] MEDS ORDERED: PAIN RELIEF1 EACH TOP (11:58)
--- NOTE | 2023-05-24 11:59 | NUR ---
PT UPSET PLAN IS FOR PT TO DC HOME TODAY. PT REFUSING TO LET RN DWAYNE LAM IV. THIS RN INTO ROOM TO DISCUSS RISKS OF LEAVING IV IN. "YOU ARE NOT TAKING IT OUT. I AM GOING HOME WITH IT BECAUSE WHEN I COME BACK TO THE ER I DONT WANT TO WAIT 5 HOURS TO GET A NEW IV" EDUCATED PT ON INCREASED RISK OF INFECTION AND THAT THE IV MAY NOT WORK WHEN/IF SHE RETURNS. PT STATES "I DONT CARE. YOU ARE NOT TAKING IT OUT"
[2023-05-24] MEDS ORDERED: HYDHCL25 PO (12:00)
[2023-05-24] MEDS ORDERED: LORazepam 1 MG Tab PO ONE (12:00)
[2023-05-24] MEDS ORDERED: HYDR1TAB94 PO (12:26)
--- NOTE | 2023-05-24 12:43 | NUR ---
SHIFT/DISCHARGE SUMMARY: PATIENT A/OX4, ANXIOUS AT TIMES. PATIENT DENIES CP/PRESSURE, N/V, SOB AND DIZZINESS, WHEN ASKED. PATIENT REPORTS PAIN 8/10 TO L HIP, MEDICATED c PRN PAIN MEDS PER EMAR c GOOD EFFECT. PATIENT MEDICATED c ATARAX AND ATIVAN FOR ANXIETY c MOD EFFECT. PER PATIENT "I'M REALLY FRUSTRATED c DR. RAMOS SHE DID MY SURGERY AND SHE DID NOT KNOW WHAT SHE IS DOING AND NOW I NEED TO WAIT AGAIN TO GET AN APPOINTMENT AT [facility] TO FIX MY HIP AGAIN." PLAN TO DC'D PATIENT HOME TODAY. PATIENT REFUSED POWERGLIDE TAKEN OUT. EDUCATED PATIENT THE RISKS OF INFECTION LEAVING IN. PATIENT STARTED YELLING OUT "YOU ARE NOT GOING TO TOUCH ME OR REMOVED THIS IV. I NEED IT AND MY DR'S OFFICE CAN REMOVED IT." THIS RN NOTIFIED WENDY BAUTISTA REGARDING THIS CONCERNED. WENDY BAUTISTA AND AKUA, NURSING HIM MANAGER SPOKE TO PATIENT. PATIENT CONTINUES THE REFUSAL OF POWERGLIDE DC'D. POWERGLIDE TO NOHEMI INTACT. PATIENT DISCHARGE HOME. DISCHARGE INSTRUCTIONS PACKET GIVEN TO PATIENT. EDUCATED PATIENT REGARDING ADMITTING DX'S OF RECURRENT DISCLOCATION TO L HIP, NEW RX, TO F/U c PCP AND ORTHOPEDICS SX AT [facility]. PATIENT VERBALIZED UNDERSTANDING AND NO FURTHER QUESTIONS AT THIS TIME. RX WAS FAXED TO PATIENT PREFERRED PHARMACY. HARD SCRIPT OF ELIZABETH GIVEN TO PATIENT. ALL PATIENT PERSONAL BELONGINGS WERE SENT HOME c THE PATIENT. PATIENT LEFT THE ROOM AT 1325 AND WAS TRANSPORTED VIA WHEELCHAIR BY WENDY ESTEVEZ AND 2 OUTREACH ANALYST TO PATIENT ENTRANCE.
--- NOTE | 2023-05-24 14:48 | NUR ---
AROUND 1100 NURSE ANALYN LET ME KNOW THE SHE HAD TURNED THE BED ALARM ON. I WALKED PASSED THE PT ROOM AND HEARD THE ALARM GOING OFF. I WENT INTO THE ROOM AND FOUND THE PT IN THE BATHROOM WITH SOAKING WET HAIR. I HELPED WALKED THE PT BACK TO BED. THE PT TOLD ME THAT SHE WAS GOING TO WALK AROUND "TO GET HER HIP TO DISLOCATE OR HOPE TO FALL". I EDUCATED THE PT THAT A STAFF MEMBER NEEDS TO BE IN THE ROOM WHEN SHE AMBULATED AND THAT WE NEEDED THE BED ALARM ON FOR HER SAFETY. PT RESPONDED "I AM GOING TO DO WHATEVER I WANT TO DO". SHE CONTINUED TO DANGLE ON THE SIDE OF THE BED, SO I WAS NOT ABLE TO PUT THE ALARM ON. NURSE AND CHARGE NURSE NOTIFIED.
== END 2023-05-24 13:23 | disposition home or self-care (01) | DRG 560 ==
LOC: ER 17:30 → MEDS 17:31 → SURS 17:31 → MEDS 05-16 02:11 → ENPENDDIS 05-24 11:56 → MEDS 05-24 13:23
PROVIDERS: Family Medicine; Student in an Organized Health Care Education/Training Program; ADMIT Internal Medicine
PROC: 0SWBXJZ Revision of Synthetic Substitute in Left Hip Joint, External Approach (ICD-10-PCS; principal; 2023-05-16)
PROC: 2W3PX1Z Immobilization of Left Upper Leg using Splint (ICD-10-PCS; 2023-05-16)
DX: T84.021A Dislocation of internal left hip prosthesis, initial encounter (principal); I42.8 Other cardiomyopathies; E11.9 Type 2 diabetes mellitus without complications; I10 Essential (primary) hypertension; M79.7 Fibromyalgia; F41.9 Anxiety disorder, unspecified; M54.50 Low back pain, unspecified; G89.29 Other chronic pain; J45.909 Unspecified asthma, uncomplicated; M32.9 Systemic lupus erythematosus, unspecified; G25.81 Restless legs syndrome; F51.5 Nightmare disorder; G47.00 Insomnia, unspecified; E87.6 Hypokalemia; D64.9 Anemia, unspecified; Z96.641 Presence of right artificial hip joint; Z87.442 Personal history of urinary calculi; Z87.820 Personal history of traumatic brain injury; Z90.710 Acquired absence of both cervix and uterus; Z90.722 Acquired absence of ovaries, bilateral; Z98.51 Tubal ligation status; Z90.49 Acquired absence of other specified parts of digestive tract; Z98.890 Other specified postprocedural states; Z88.0 Allergy status to penicillin; Z88.1 Allergy status to other antibiotic agents; Z91.030 Bee allergy status; Z88.8 Allergy status to other drugs, medicaments and biological substances; Z79.899 Other long term (current) drug therapy; Y83.1 Surgical operation with implant of artificial internal device as the cause of abnormal reaction of the patient, or of later complication, without mention of misadventure at the time of the procedure
CPT/HCPCS: 27265; 36415; 73501; 73502; 80048; 80053; 82947; 85025; 96374-59; 96376-59; 97162; 99152; 99153; 99285-25; A9270; J0360; J1170; J1650; J1885; J2060; J2405; J2704; J3010; J3480; J7030; J7050

== ENCOUNTER 2023-09-22 13:54 | Emergency (ER) | payer OTHER ==
[~2023-09-22] VITALS: Ht 157.5 cm; Wt 90.7 kg
[~2023-09-22 13:54] MED LIST changes: +ASCO500 PO; +Acetaminophen650 M1 PO; +BUPR150ER PO; +BUPR75 PO; +CELEXA40 M1 PO; +FERSU300 PO; +HYDR1TAB94 PO; +LEVFLO500 PO; +METR500 PO; +PAIN RELIEF1 EACH TOP; +VISBIOME 112.51 EACH PO
[2023-09-22] MEDS ORDERED: LORazepam 2 MG/ML 1ML Injection IM ONE (16:25)
[2023-09-22 16:38] VITALS: BP 145/96
== END 2023-09-22 16:43 | disposition home or self-care (01) ==
LOC: ER 13:54
DX: F41.9 Anxiety disorder, unspecified (principal); F11.23 Opioid dependence with withdrawal; Z88.8 Allergy status to other drugs, medicaments and biological substances; Z88.1 Allergy status to other antibiotic agents; Z88.0 Allergy status to penicillin; Z91.030 Bee allergy status; Z79.899 Other long term (current) drug therapy; I10 Essential (primary) hypertension; E78.5 Hyperlipidemia, unspecified; J45.909 Unspecified asthma, uncomplicated
CPT/HCPCS: 96372; 99283-25; J2060

== ENCOUNTER → 2023-10-21 | Outpatient (CLI) | payer OTHER | LOC: LAB 16:30 → LAB SHORT 16:30 | DX: R31.9 Hematuria, unspecified (principal) | CPT/HCPCS: 87086 ==

== ENCOUNTER 2023-11-29 17:32 | Emergency (ER) | payer OTHER ==
[~2023-11-29] VITALS: Ht 157.5 cm; Wt 90.7 kg
[~2023-11-29 17:32] MED LIST changes: -PRAZ2 PO; +PRAZ5 PO
[2023-11-29 17:58] VITALS: BP 161/116
[2023-11-29 18:08] LABS: Source, Urine Clean Catch
[2023-11-29 18:19] LABS: Appearance, Urine Hazy (Clear); Bilirubin, Urine Neg (Neg); Blood, Urine 5+ (Neg); Color, Urine Yellow (P-Yellow); Glucose Qualitative, Urine Neg (Neg); Ketones, Urine Neg (Neg); Leukocyte Esterase, Urine Neg (Neg); Nitrite, Urine Neg (Neg); Protein, Urine 2+ (Neg); Urobilinogen, Urine NORM (Normal)
[2023-11-29 18:26] LABS: Bacteria Few /hpf; Calcium Oxalate Crystals Few /hpf; Red Blood Cells, Urine TNTC /hpf (0-2); Squamous Epithelial Cells Few /hpf (Few)
[2023-11-29 18:27] LABS: Hyaline Casts 0-2 /lpf (0-2)
[2023-11-29] MEDS ORDERED: Ketorolac Tromethamine 30mg Vial IM ONE (19:40)
[2023-11-29] MEDS ORDERED: Tamsulosin HCl 0.4 MG Cap PO ONE (19:40)
[2023-11-29] MEDS ORDERED: TAMS.4ER PO (19:44)
[2023-11-29] MEDS ORDERED: Pyridium100 MG PO (19:44)
== END 2023-11-29 19:55 | disposition home or self-care (01) ==
LOC: ER 17:32
PROVIDERS: Physician Assistant
DX: N20.0 Calculus of kidney (principal); M32.9 Systemic lupus erythematosus, unspecified; R30.0 Dysuria; I10 Essential (primary) hypertension; J45.909 Unspecified asthma, uncomplicated; I11.9 Hypertensive heart disease without heart failure; M96.1 Postlaminectomy syndrome, not elsewhere classified; M41.9 Scoliosis, unspecified; M47.816 Spondylosis without myelopathy or radiculopathy, lumbar region; Z87.891 Personal history of nicotine dependence; Z79.899 Other long term (current) drug therapy; Z88.0 Allergy status to penicillin; Z88.1 Allergy status to other antibiotic agents; Z91.030 Bee allergy status; Z91.048 Other nonmedicinal substance allergy status; Z88.8 Allergy status to other drugs, medicaments and biological substances; Z98.890 Other specified postprocedural states
CPT/HCPCS: 72082; 72110; 81001; 96372; 99284-25; A9270; J1885

== ENCOUNTER 2023-12-07 18:37 | Observation (INO) | payer OTHER ==
[~2023-12-07] VITALS: Ht 157.5 cm; Wt 97.6 kg
[~2023-12-07 18:37] MED LIST changes: +TAMS.4ER PO
[2023-12-07] MEDS ORDERED: Ondansetron HCl 2 MG / ML 2ML Vial IV ONE (19:45)
[2023-12-07] MEDS ORDERED: Morphine Sulfate 4 MG/1 ML Injection IV ONE (19:45)
[2023-12-07 19:55] LABS: BASOPHILS ABSOLUTE AUTO 0.08 K/mm3 (0.00-0.23); BASOPHILS PERCENT AUTO 1 % (0-2); EOSINOPHILS PERCENT AUTO 0 % (0-6); Hematocrit 38.2 % (33.0-51.0); Hemoglobin 11.4 g/dL (11.5-16.0); IMMATURE GRAN ABSOLUTE AUTO 0.02 K/mm3 (0.00-0.10); IMMATURE GRAN PERCENT AUTO 0 % (0-1); LYMPHOCYTES PERCENT AUTO 29 % (21-46); MONOCYTES ABSOLUTE AUTO 0.77 K/mm3 (0.16-1.47); MONOCYTES PERCENT AUTO 10 % (4-13); Mean Corpuscular HGB 25.6 pg (26.0-34.0); Mean Corpuscular HGB Conc 29.8 g/dL (31.5-36.5); Mean Corpuscular Volume 86 fL (80-100); Mean Platelet Volume 9.8 fL (9.1-12.4); NEUTROPHILS PERCENT AUTO 60 % (41-73); Platelet Count 280 K/mm3 (150-400); RDW Coefficient Variation 18.8 % (11.7-14.2); RDW Standard Deviation 58.5 fL (35.1-46.3); Red Blood Cell Count 4.45 M/mm3 (3.80-5.20); White Blood Cell Count 7.37 K/mm3 (4.00-11.30)
[2023-12-07 20:17] LABS: Albumin, Blood 3.4 g/dL (3.4-5.0); Bilirubin, Total 0.2 mg/dL (0.1-1.0); Bun/Creatinine Ratio 27.9 (12.0-20.0); Calcium, Blood 10.7 mg/dL (8.5-10.1); Creatinine, Blood 0.68 mg/dL (0.40-1.00); Globulin, Blood 3.3 g/dL (2.2-4.0); Potassium, Blood 4.6 mmol/L (3.5-5.5); Total Protein, Blood 6.7 g/dL (6.4-8.2)
[2023-12-07] MEDS ORDERED: HYDROmorphone HCl/Pf 1MG SYR IV ONE (23:20)
[2023-12-08] VITALS (7 sets, daily range): BP systolic 114–189; BP diastolic 65–112
[2023-12-08] MEDS ORDERED: Morphine Sulfate 4 MG/1 ML Injection IV PRN (00:50)
[2023-12-08] MEDS ORDERED: HydrALAZINE HCl 20 MG / ML 1ML Vial IV PRN (02:10)
[2023-12-08] MEDS ORDERED: Acetaminophen 325 MG TABLET PO PRN (03:25)
[2023-12-08] MEDS ORDERED: MIRTAZAPINE7.5 M1 PO (03:34)
[2023-12-08] MEDS ORDERED: HYDPAM50 PO (03:35)
[2023-12-08] MEDS ORDERED: FOSAMAX70 MG PO (03:39)
[2023-12-08] MEDS ORDERED: BUPROPION XL150 M1 PO (03:39)
[2023-12-08] MEDS ORDERED: PRAZ1 PO (03:43)
[2023-12-08] MEDS ORDERED: DULOXETINE HCL60 M1 PO (03:45)
[2023-12-08] MEDS ORDERED: OXYMORPHONE HCL5 M1 PO (03:46)
[2023-12-08] MEDS ORDERED: OxyCODONE HCL 5 MG TAB PO PRN (04:40)
--- NOTE | 2023-12-08 05:20 | NUR ---
SHIFT SUMMARY NOC PT A/O X 4. SBA FWW IN ROOM. CONTINENT, BUT HAS C/O OF URINARY FREQUENCY. ADMIT FROM ED WITH DX NSTEMI. HAD TROPONINS OF 87, 117. CT SCAN SHOWED PERICARDIAL EFFUSION. PT HAS CP AT XIPHOID PROCESS WITH NO RADIATION. ALSO C/O OF LLQ PAIN. ON TELE SINUS RHYTHM IN 70'S. CT ALSO SHOWED ABCESS UNDERNEATH OLD SURGICAL SITE, CONSULT FOR GEN SURGERY CALLED IN FOR DR GONZALEZ FOR POSSIBLE SURGICAL INTERVENTION. PT IS NPO FOR POSSIBLE SURGERY. PT PAIN BEING MANAGED PER EMAR. PT ALSO HAD JOSHI AND GIVEN TYLENOL. PT CURRENTLY RESTING WITH BED IN LOWEST POSITION, AND CALL LIGHT WITHIN REACH.
[2023-12-08] MEDS ORDERED: HydrOXYzine Pamoate 50 MG Cap PO PRN (06:15)
[2023-12-08] MEDS ORDERED: HyDROXyzine HCl 25 MG Tab PO PRN (06:20)
--- NOTE | 2023-12-08 07:34 | NUR ---
CALL FROM LAB: CRITICAL TROPONIN RESULT OF [id number]. PRIMARY RN NOTIFIED.
[2023-12-08] MEDS ORDERED: Carvedilol 25 MG Tab PO SCH (08:00)
[2023-12-08] MEDS ORDERED: Enoxaparin 40 MG/0.4 ML SYR SC SCH (09:00)
[2023-12-08] MEDS ORDERED: Gabapentin 300 MG Cap PO SCH (09:00)
[2023-12-08] MEDS ORDERED: Ferrous Sulfate 325 MG Tab PO SCH (09:00)
[2023-12-08] MEDS ORDERED: DULoxetine HCL 60 MG Capsule DR PO SCH (09:00)
[2023-12-08] MEDS ORDERED: Tamsulosin HCl 0.4 MG Cap PO SCH (09:00)
[2023-12-08] MEDS ORDERED: Ascorbic Acid 500 MG Tab PO SCH (09:00)
[2023-12-08] MEDS ORDERED: AmLODIPine Besylate 5 MG Tab PO SCH (09:00)
[2023-12-08] MEDS ORDERED: buPROPion HCL 150 MG TAB.SR.12H PO SCH (09:00)
[2023-12-08] MEDS ORDERED: Cyclobenzaprine HCl 10 MG Tab PO PRN (12:15)
[2023-12-08] MEDS ORDERED: Aminophylline 250MG / 10ML 10 ML Vial ONE (14:15)
[2023-12-08] MEDS ORDERED: Regadenoson 0.4 MG/5 ML SYRINGE ONE (14:15)
--- NOTE | 2023-12-08 15:49 | NUR ---
NOTE: PATIENT LEFT THE ROOM AT THIS TIME TRANSPORTED VIA WHEELCHAIR TO [facility].
--- NOTE | 2023-12-08 17:43 | NUR ---
SHIFT SUMMARY: PATIENT A/OX4, PLEASANT AND COOPERATIVE c CARE. PATIENT REPORTS PAIN TO LUQ AND JOSHI, MEDICATED FOR PAIN PER EMAR c MOD EFFECT. DR. GONZALEZ CAME IN THIS AM FOR CONSULT. PER DR. GONZALEZ THERE IS NO OBVIOUS FLUID COLLECTION TO L GLUTEAL SITE, PATIENT DOES NOT REQUIRED ANY ACUTE SURGICAL INTERVENTION. PATIENT HAD ECHO DONE TODAY c RESULT; EF 71%. PATIENT HAD HER 1ST PART OF STRESS TEST THIS PM, SECOND PART WILL BE TOMORROW AT AROUND 0900. PATIENT WILL BE NPO AT [place] AND NO CAFFIENE. PATIENT WAS HYPERTENSIVE AT BEGINNING OF SHIFT, MEDICATED c SCHEDULED BP MEDS PER EMAR AND HAS IMPROVED. PATIENT DENIES CP/PRESSURE, SOB, DIZZINESS AND N/V. PATIENT ON TELE, SR IN THE 70'S TO HIGH 80'S BPM. PATIENT ON HEART HEALTHY DIET, CONTINENT OF BLADDER, AMBULATES TO BATHROOM INDPENDENTLY T/O SHIFT. CALL LIGHT IN REACH.
[2023-12-08] MEDS ORDERED: Prazosin HCL 5 MG Cap PO SCH (21:00)
[2023-12-08] MEDS ORDERED: rOPINIRole HCl 2 MG Tab PO SCH (21:00)
[2023-12-08] MEDS ORDERED: Prazosin HCl 1 MG Cap PO SCH (21:00)
[2023-12-08] MEDS ORDERED: Mirtazapine 15 MG Tab PO SCH (21:00)
[2023-12-08] MEDS ORDERED: TraZODone HCl 100 MG Tab PO SCH (21:00)
[2023-12-09 02:37] VITALS: BP 122/77
--- NOTE | 2023-12-09 05:44 | NUR ---
SHIFT SUMMARY PT IS A&OX4, PLEASANT AND TALKATIVE. VSS ON RA. PER TELEMETRY PT IS SR @70 BPM. DENIES ANY CHEST PAIN/PRESSURE OR SOB. C/O PAIN 8-9/10 IN HER LUQ, MEDICATED WITH PRN 5 MG PO ROXICODONE, OR 2 MG IV MORPHINE. PT SLEPT WELL T/O MOST OF THE NOC. TOLERATING A HEART HEALTHY DIET, NPO AFTER MN FOR SECOND HALF OF STRESS TEST TODAY. UP INDEPENDENTLY IN ROOM/BR VOIDING IN TOILET, NO BM THIS SHIFT. BED IN LOWEST POSITION, CALL LIGHT WITHIN REACH.
[2023-12-09 07:23] VITALS: BP 128/73
[2023-12-09 07:47] LABS: CHOL/HDL RATIO 2.8; Cholesterol 146 mg/dL (50-200); HDL Cholesterol 52 mg/dL (>39); LDL/HDL RATIO 1.4; Low Density Lipoprotein Chol 71 mg/dL (0-110); Triglycerides 117 mg/dL (30-160); Very Low Density Lipoprot Chol 23 mg/dL (6-32)
[2023-12-09] MEDS ORDERED: Ondansetron HCl 2 MG / ML 2ML Vial IV PRN (10:30)
[2023-12-09 14:01] VITALS: BP 114/75
[2023-12-09 15:50] LABS: Hematocrit 39.2 % (33.0-51.0); Hemoglobin 11.9 g/dL (11.5-16.0)
[2023-12-09 16:54] VITALS: BP 117/64
--- NOTE | 2023-12-09 17:09 | NUR ---
SHIFT/DISCHARGE SUMMARY: PATIENT A/OX4, CALM, PLEASANT AND COOPERATIVE c CARE. PATIENT DENIES CP/PRESSURE, SOB, N/V AND DIZZINESS. PATIENT ON TELE, SR HR IN THE HIGH 60'S TO 70'S BPM. PATIENT CONTINUES TO REPORTS PAIN TO LUQ, MEDICATED FOR PAIN PER EMAR. PATIENT HAD N/V AND DIARRHEA 15 MINS AFTER RECEIVING THE MEDS ADMINISTERED BY [facility] THIS AM, MEDICATED c ZOFRAN c GOOD EFFECT. PATIENT COMPLETED HER SECOND PART OF STRESS TEST TODAY. DR. PASTOR AND DR. BRODY SPOKE TO PATIENT REGARDING THE STRESS TEST RESULT. PATIENT HAS NO COMPLAINTS OR DENIES NEW CONCERNED THIS SHIFT. PIV TO R FOREARM DC'D. PATIENT DISCHARGE HOME. DISCHARGE INSTRUCTIONS PACKET GIVEN TO PATIENT. EDUCATED PATIENT REGARDING ADMITTING DX'S OF CP, S/S, TX, SELF CARE AND TO F/U c PCP. PATIENT VERBALIZED UNDERSTANDING AND NO FURTHER QUESTIONS. PATIENT HAS NO NEW RX, RESUME HOME MEDS PER ORDER. ALL PATIENT PERSONAL BELONGINGS WERE SENT HOME c THE PATIENT. PATIENT LEFT THE ROOM AT 1705 TRANSPORTED VIA WHEELCHAIR BY [facility] TO PATIENT ENTRANCE.
[2023-12-14] MEDS ORDERED: Alendronate Sodium 70 MG Tablet PO SCH (06:00)
== END 2023-12-09 17:05 | disposition home or self-care (01) ==
LOC: ER 18:37 → MEDS 18:38
PROVIDERS: Family Medicine; Physician Assistant; Student in an Organized Health Care Education/Training Program; ADMIT Family Medicine
DX: I21.4 Non-ST elevation (NSTEMI) myocardial infarction (principal); F41.9 Anxiety disorder, unspecified; F32.A Depression, unspecified; R79.89 Other specified abnormal findings of blood chemistry; F43.12 Post-traumatic stress disorder, chronic; J90 Pleural effusion, not elsewhere classified; L02.31 Cutaneous abscess of buttock; D64.9 Anemia, unspecified; E11.40 Type 2 diabetes mellitus with diabetic neuropathy, unspecified; I10 Essential (primary) hypertension; E78.5 Hyperlipidemia, unspecified; Z79.899 Other long term (current) drug therapy; Z87.891 Personal history of nicotine dependence; Z88.0 Allergy status to penicillin; Z88.8 Allergy status to other drugs, medicaments and biological substances; Z91.030 Bee allergy status
CPT/HCPCS: 36415; 71260; 74177; 78452; 80053; 80061; 83036; 83690; 84484; 85014; 85018; 85025; 93005; 93010; 93017; 93308; 93321; 96372; 96374-59; 96375-59; 96376; 99285-25; A9270; A9500; G0378; J0280; J0360; J1170; J1650; J2270; J2405; J2785; Q9967

== ENCOUNTER → 2024-01-02 | Outpatient (CLI) | payer OTHER ==
[~2024-01-02] MED LIST changes: +BUPROPION XL150 M1 PO; +DULOXETINE HCL60 M1 PO; +FOSAMAX70 MG PO; +MIRTAZAPINE7.5 M1 PO; +PRAZ1 PO
[2024-01-02 18:02] LABS: Creatinine Urine 96.2 mg/dL (27.00-270.00); Protein, Urine Quantitative 16.1 mg/dL (0.0-11.9)
[2024-01-02 18:04] LABS: Microalbumin, Urine Quant. 34.7 mg/L (0.000-20.000)
== END | disposition home or self-care (01) ==
LOC: LAB 12:45 → LAB SHORT 12:45
PROVIDERS: Internal Medicine Nephrology
DX: N18.30 Chronic kidney disease, stage 3 unspecified (principal); D63.1 Anemia in chronic kidney disease; N25.81 Secondary hyperparathyroidism of renal origin; E55.9 Vitamin D deficiency, unspecified; E78.00 Pure hypercholesterolemia, unspecified; R76.9 Abnormal immunological finding in serum, unspecified; R94.5 Abnormal results of liver function studies; R94.6 Abnormal results of thyroid function studies
CPT/HCPCS: 81050; 82043; 82570; 84156

== ENCOUNTER 2024-03-12 07:44 | Emergency (ER) | payer OTHER ==
[~2024-03-12] VITALS: Ht 157.5 cm; Wt 86.2 kg
[2024-03-12] MEDS ORDERED: LORazepam 2 MG/ML 1ML Injection IV ONE ×2 (08:25→09:40)
[2024-03-12] MEDS ORDERED: Ketorolac Tromethamine 30mg Vial IV ONE (09:40)
[2024-03-12 09:57] LABS: BASOPHILS ABSOLUTE AUTO 0.04 K/mm3 (0.00-0.23); BASOPHILS PERCENT AUTO 1 % (0-2); EOSINOPHILS ABSOLUTE AUTO 0.11 K/mm3 (0.00-0.68); EOSINOPHILS PERCENT AUTO 2 % (0-6); Hematocrit 39.7 % (33.0-51.0); Hemoglobin 12.9 g/dL (11.5-16.0); IMMATURE GRAN ABSOLUTE AUTO 0.02 K/mm3 (0.00-0.10); IMMATURE GRAN PERCENT AUTO 0 % (0-1); LYMPHOCYTES ABSOLUTE AUTO 1.17 K/mm3 (0.84-5.20); LYMPHOCYTES PERCENT AUTO 21 % (21-46); MONOCYTES PERCENT AUTO 13 % (4-13); Mean Corpuscular HGB Conc 32.5 g/dL (31.5-36.5); Mean Corpuscular Volume 89 fL (80-100); Mean Platelet Volume 9.9 fL (9.1-12.4); NEUTROPHILS ABSOLUTE AUTO 3.51 K/mm3 (1.96-9.15); NEUTROPHILS PERCENT AUTO 63 % (41-73); Platelet Count 198 K/mm3 (150-400); RDW Coefficient Variation 17.2 % (11.7-14.2); RDW Standard Deviation 56.5 fL (35.1-46.3); Red Blood Cell Count 4.45 M/mm3 (3.80-5.20); White Blood Cell Count 5.55 K/mm3 (4.00-11.30)
[2024-03-12 10:12] LABS: Albumin, Blood 3.4 g/dL (3.4-5.0); Albumin/Globulin Ratio 1.1 (0.8-1.8); Bilirubin, Total 0.2 mg/dL (0.1-1.0); Bun/Creatinine Ratio 22.7 (12.0-20.0); Calcium, Blood 11.7 mg/dL (8.5-10.1); Creatinine, Blood 0.71 mg/dL (0.40-1.00); Globulin, Blood 3.1 g/dL (2.2-4.0); Potassium, Blood 4.4 mmol/L (3.5-5.5); Total Protein, Blood 6.5 g/dL (6.4-8.2)
[2024-03-12 14:13] VITALS: BP 146/84
== END 2024-03-12 14:14 | disposition home or self-care (01) ==
LOC: ER 07:44
PROVIDERS: Emergency Medicine
DX: R07.89 Other chest pain (principal); T50.Z95A Adverse effect of other vaccines and biological substances, initial encounter; E11.9 Type 2 diabetes mellitus without complications; I10 Essential (primary) hypertension; Z87.891 Personal history of nicotine dependence; Z88.0 Allergy status to penicillin; Z88.1 Allergy status to other antibiotic agents; Z91.030 Bee allergy status; Z88.8 Allergy status to other drugs, medicaments and biological substances; Z79.899 Other long term (current) drug therapy
CPT/HCPCS: 36415; 80053; 84484; 85025; 93005; 93010; 96374; 96375; 96376; 99284-25; J1885; J2060

== ENCOUNTER 2024-03-14 08:42 | Emergency (ER) | payer OTHER ==
[~2024-03-14] VITALS: Ht 160 cm; Wt 85.7 kg
[2024-03-14] MEDS ORDERED: Ondansetron HCl 2 MG / ML 2ML Vial IV ONE ×2 (09:35→17:50)
[2024-03-14] MEDS ORDERED: NS 1,000 ML IV SCH (09:35)
[2024-03-14] MEDS ORDERED: Morphine Sulfate 4 MG/1 ML Injection IV ONE (09:35)
[2024-03-14 10:26] LABS: BASOPHILS ABSOLUTE AUTO 0.03 K/mm3 (0.00-0.23); BASOPHILS PERCENT AUTO 1 % (0-2); EOSINOPHILS ABSOLUTE AUTO 0.01 K/mm3 (0.00-0.68); EOSINOPHILS PERCENT AUTO 0 % (0-6); Hematocrit 45.8 % (33.0-51.0); Hemoglobin 14.4 g/dL (11.5-16.0); IMMATURE GRAN ABSOLUTE AUTO 0.02 K/mm3 (0.00-0.10); IMMATURE GRAN PERCENT AUTO 0 % (0-1); LYMPHOCYTES ABSOLUTE AUTO 0.87 K/mm3 (0.84-5.20); LYMPHOCYTES PERCENT AUTO 14 % (21-46); MONOCYTES ABSOLUTE AUTO 0.63 K/mm3 (0.16-1.47); MONOCYTES PERCENT AUTO 10 % (4-13); Mean Corpuscular HGB 28.5 pg (26.0-34.0); Mean Corpuscular HGB Conc 31.4 g/dL (31.5-36.5); Mean Corpuscular Volume 91 fL (80-100); Mean Platelet Volume 9.3 fL (9.1-12.4); NEUTROPHILS ABSOLUTE AUTO 4.72 K/mm3 (1.96-9.15); NEUTROPHILS PERCENT AUTO 75 % (41-73); Platelet Count 225 K/mm3 (150-400); RDW Coefficient Variation 17.2 % (11.7-14.2); RDW Standard Deviation 57.6 fL (35.1-46.3); Red Blood Cell Count 5.05 M/mm3 (3.80-5.20); White Blood Cell Count 6.28 K/mm3 (4.00-11.30)
[2024-03-14 11:04] LABS: Albumin, Blood 3.6 g/dL (3.4-5.0); Bilirubin, Total 0.5 mg/dL (0.1-1.0); Bun/Creatinine Ratio 15.3 (12.0-20.0); Calcium, Blood 10.5 mg/dL (8.5-10.1); Creatinine, Blood 0.59 mg/dL (0.40-1.00); Globulin, Blood 3.7 g/dL (2.2-4.0); Potassium, Blood 4.4 mmol/L (3.5-5.5); Total Protein, Blood 7.3 g/dL (6.4-8.2)
[2024-03-14 11:18] LABS: Source, Urine Voided
[2024-03-14 11:28] LABS: Appearance, Urine Clear (Clear); Bilirubin, Urine Neg (Neg); Blood, Urine 1+ (Neg); Glucose Qualitative, Urine Neg (Neg); Ketones, Urine Neg (Neg); Leukocyte Esterase, Urine Neg (Neg); Nitrite, Urine Neg (Neg); Protein, Urine 1+ (Neg); Urobilinogen, Urine NORM (Normal)
[2024-03-14 11:32] LABS: Color, Urine Pale Yellow (P-Yellow)
[2024-03-14 11:41] LABS: White Blood Cells, Urine 0-2 /hpf (0-5)
[2024-03-14 11:42] LABS: Bacteria Rare /hpf; Red Blood Cells, Urine 0-2 /hpf (0-2); Squamous Epithelial Cells Rare /hpf (Few)
[2024-03-14] MEDS ORDERED: Ketorolac Tromethamine 30mg Vial IV ONE (11:50)
[2024-03-14] MEDS ORDERED: Droperidol 5 mg/2 ml Vial IV ONE (12:45)
[2024-03-14] MEDS ORDERED: HydrALAZINE HCl 20 MG / ML 1ML Vial IV ONE (13:50)
[2024-03-14] MEDS ORDERED: PROM25 PO (13:55)
[2024-03-14] MEDS ORDERED: ONDA4ODT MM (13:55)
[2024-03-14] MEDS ORDERED: NiCARdipine HCL 50 MG in NS 250 ML IV SCH (14:15)
[2024-03-14] MEDS ORDERED: Ondansetron HCl 2 MG / ML 2ML Vial IV PRN (16:50)
[2024-03-14] MEDS ORDERED: LORazepam 2 MG/ML 1ML Injection IV PRN (16:50)
[2024-03-14] MEDS ORDERED: DiphenhydrAMINE HCl 50 MG/ML 1ML Vial IV ONE (17:50)
[2024-03-14] MEDS ORDERED: Ketorolac Tromethamine 15mg Vial IV ONE (17:50)
[2024-03-14] MEDS ORDERED: Dexamethasone Sod Phos 10 MG/ML 1ML VIAL IV ONE (17:50)
[2024-03-14] MEDS ORDERED: Ketorolac Tromethamine 15mg Vial IV PRN (18:00)
[2024-03-14 18:30] VITALS: BP 166/97
[2024-03-14] MEDS ORDERED: RX Prepack 2 Tabs Ondansetron ODT 4MG UD ONE (18:50)
[2024-03-14] MEDS ORDERED: AmLODIPine Besylate 5 MG Tab PO ONE (19:00)
[2024-03-14] MEDS ORDERED: Carvedilol 25 MG Tab PO SCH (19:00)
== END 2024-03-14 18:58 | disposition home or self-care (01) ==
LOC: ER 08:42
PROVIDERS: Emergency Medicine
DX: K29.70 Gastritis, unspecified, without bleeding (principal); I10 Essential (primary) hypertension; R51.9 Headache, unspecified; Z88.8 Allergy status to other drugs, medicaments and biological substances; Z88.0 Allergy status to penicillin; Z88.1 Allergy status to other antibiotic agents; Z91.030 Bee allergy status; Z79.899 Other long term (current) drug therapy; E78.5 Hyperlipidemia, unspecified; E11.9 Type 2 diabetes mellitus without complications; Z87.891 Personal history of nicotine dependence
CPT/HCPCS: 36415; 70450; 74177; 80053; 81001; 83690; 85025; 93005; 93010; 96361; 96365-59; 96375; 96376; 99284-25; A9270; C1751; J0360; J1100; J1200; J1790; J1885; J2270; J2405; J7030; J7050; Q9967

== ENCOUNTER → 2024-04-04 | Outpatient (CLI) | payer OTHER ==
[2024-04-04 18:04] LABS: BASOPHILS ABSOLUTE AUTO 0.05 K/mm3 (0.00-0.23); BASOPHILS PERCENT AUTO 0 % (0-2); EOSINOPHILS PERCENT AUTO 0 % (0-6); Hematocrit 43.6 % (33.0-51.0); Hemoglobin 14.3 g/dL (11.5-16.0); IMMATURE GRAN ABSOLUTE AUTO 0.03 K/mm3 (0.00-0.10); IMMATURE GRAN PERCENT AUTO 0 % (0-1); LYMPHOCYTES ABSOLUTE AUTO 1.77 K/mm3 (0.84-5.20); LYMPHOCYTES PERCENT AUTO 16 % (21-46); MONOCYTES ABSOLUTE AUTO 0.94 K/mm3 (0.16-1.47); MONOCYTES PERCENT AUTO 8 % (4-13); Mean Corpuscular HGB 29.8 pg (26.0-34.0); Mean Corpuscular HGB Conc 32.8 g/dL (31.5-36.5); Mean Corpuscular Volume 91 fL (80-100); Mean Platelet Volume 10.8 fL (9.1-12.4); NEUTROPHILS ABSOLUTE AUTO 8.49 K/mm3 (1.96-9.15); NEUTROPHILS PERCENT AUTO 75 % (41-73); Platelet Count 250 K/mm3 (150-400); RDW Coefficient Variation 15.9 % (11.7-14.2); RDW Standard Deviation 53.6 fL (35.1-46.3); White Blood Cell Count 11.28 K/mm3 (4.00-11.30)
[2024-04-04 18:16] LABS: Albumin, Blood 3.7 g/dL (3.4-5.0); Albumin/Globulin Ratio 1.2 (0.8-1.8); Bilirubin, Total 0.5 mg/dL (0.1-1.0); Bun/Creatinine Ratio 30.4 (12.0-20.0); Calcium, Blood 11.6 mg/dL (8.5-10.1); Creatinine, Blood 0.66 mg/dL (0.40-1.00); Globulin, Blood 3.1 g/dL (2.2-4.0); Potassium, Blood 4.2 mmol/L (3.5-5.5); Total Protein, Blood 6.8 g/dL (6.4-8.2)
== END | disposition home or self-care (01) ==
LOC: LAB 15:40 → LAB SHORT 15:40
PROVIDERS: Physician Assistant
DX: R53.83 Other fatigue (principal)
CPT/HCPCS: 80053; 85025

== ENCOUNTER 2024-04-25 23:18 | Inpatient (IN) | payer OTHER ==
[~2024-04-25] VITALS: Ht 157.5 cm; Wt 81.1 kg
[2024-04-25] MEDS ORDERED: Ondansetron HCl 2 MG / ML 2ML Vial IV ONE (23:30)
[2024-04-26 00:08] LABS: BASOPHILS ABSOLUTE AUTO 0.04 K/mm3 (0.00-0.23); BASOPHILS PERCENT AUTO 1 % (0-2); EOSINOPHILS PERCENT AUTO 0 % (0-6); Hemoglobin 14.3 g/dL (11.5-16.0); IMMATURE GRAN ABSOLUTE AUTO 0.03 K/mm3 (0.00-0.10); IMMATURE GRAN PERCENT AUTO 0 % (0-1); LYMPHOCYTES ABSOLUTE AUTO 0.81 K/mm3 (0.84-5.20); LYMPHOCYTES PERCENT AUTO 10 % (21-46); MONOCYTES ABSOLUTE AUTO 0.39 K/mm3 (0.16-1.47); MONOCYTES PERCENT AUTO 5 % (4-13); Mean Corpuscular HGB 29.9 pg (26.0-34.0); Mean Corpuscular HGB Conc 32.5 g/dL (31.5-36.5); Mean Corpuscular Volume 92 fL (80-100); Mean Platelet Volume 9.8 fL (9.1-12.4); NEUTROPHILS ABSOLUTE AUTO 7.27 K/mm3 (1.96-9.15); NEUTROPHILS PERCENT AUTO 85 % (41-73); Platelet Count 268 K/mm3 (150-400); RDW Coefficient Variation 15.9 % (11.7-14.2); RDW Standard Deviation 54.3 fL (35.1-46.3); Red Blood Cell Count 4.78 M/mm3 (3.80-5.20); White Blood Cell Count 8.54 K/mm3 (4.00-11.30)
[2024-04-26 00:43] LABS: Albumin, Blood 3.8 g/dL (3.4-5.0); Bilirubin, Total 0.5 mg/dL (0.1-1.0); Bun/Creatinine Ratio 27.9 (12.0-20.0); Calcium, Blood 11.2 mg/dL (8.5-10.1); Creatinine, Blood 0.57 mg/dL (0.40-1.00); Globulin, Blood 3.8 g/dL (2.2-4.0); Total Protein, Blood 7.6 g/dL (6.4-8.2)
[2024-04-26] MEDS ORDERED: DiphenhydrAMINE HCl 50 MG/ML 1ML Vial IV ONE (00:45)
[2024-04-26] MEDS ORDERED: Droperidol 5 mg/2 ml Vial IV ONE (00:45)
[2024-04-26] MEDS ORDERED: DiphenhydrAMINE HCl 50 MG/ML 1ML Vial IM ONE (01:00)
[2024-04-26] MEDS ORDERED: Droperidol 5 mg/2 ml Vial IM ONE (01:00)
[2024-04-26] MEDS ORDERED: Morphine Sulfate 4 MG/1 ML Injection IM ONE (01:20)
[2024-04-26] MEDS ORDERED: NiCARdipine HCL 50 MG in NS 250 ML IV SCH (02:45)
[2024-04-26] MEDS ORDERED: Morphine Sulfate 4 MG/1 ML Injection IV ONE (02:50)
[2024-04-26] MEDS ORDERED: Ondansetron HCl 2 MG / ML 2ML Vial IV ONE (02:50)
[2024-04-26] MEDS ORDERED: HydrALAZINE HCl 20 MG / ML 1ML Vial IV ONE (03:05)
[2024-04-26] MEDS ORDERED: FLU VACC TS2024-25(6MOS UP)/PF 45 MCG/0.5 ML SYRINGE IM ONE (05:25)
[2024-04-26] MEDS ORDERED: LORazepam 2 MG/ML 1ML Injection IV ONE (06:00)
[2024-04-26] MEDS ORDERED: TraMADol HCl 50 MG Tab PO PRN (08:30)
[2024-04-26] MEDS ORDERED: HYDROmorphone HCl/Pf 1MG SYR IV PRN (10:15)
[2024-04-26] MEDS ORDERED: Ondansetron HCl 2 MG / ML 2ML Vial IV PRN (10:15)
[2024-04-26] MEDS ORDERED: Diazepam 5 MG Tab PO PRN (14:30)
[2024-04-26] MEDS ORDERED: Albuterol 2.5 MG/3 ML VIAL INH PRN (14:35)
[2024-04-26] MEDS ORDERED: Carvedilol 25 MG Tab PO SCH (17:00)
[2024-04-26 18:42] VITALS: BP 139/93
[2024-04-26 19:55] VITALS: BP 124/86
[2024-04-26] MEDS ORDERED: MINIPRESS5 MG PO (19:59)
[2024-04-26] MEDS ORDERED: HydrOXYzine Pamoate 25 MG Cap PO PRN (20:45)
[2024-04-26] MEDS ORDERED: rOPINIRole HCl 2 MG Tab PO SCH (21:00)
[2024-04-26] MEDS ORDERED: TraZODone HCl 100 MG Tab PO SCH (21:00)
[2024-04-26] MEDS ORDERED: Mirtazapine 15 MG SoluTab PO SCH (21:00)
[2024-04-26] MEDS ORDERED: Mirtazapine 15 MG Tab PO SCH (22:28)
[2024-04-27 00:18] VITALS: BP 92/60
[2024-04-27 04:20] LABS: BASOPHILS ABSOLUTE AUTO 0.04 K/mm3 (0.00-0.23); BASOPHILS PERCENT AUTO 1 % (0-2); EOSINOPHILS ABSOLUTE AUTO 0.01 K/mm3 (0.00-0.68); EOSINOPHILS PERCENT AUTO 0 % (0-6); Hemoglobin 14.3 g/dL (11.5-16.0); IMMATURE GRAN ABSOLUTE AUTO 0.05 K/mm3 (0.00-0.10); IMMATURE GRAN PERCENT AUTO 1 % (0-1); LYMPHOCYTES ABSOLUTE AUTO 2.15 K/mm3 (0.84-5.20); LYMPHOCYTES PERCENT AUTO 31 % (21-46); MONOCYTES ABSOLUTE AUTO 1.23 K/mm3 (0.16-1.47); MONOCYTES PERCENT AUTO 18 % (4-13); Mean Corpuscular HGB 30.4 pg (26.0-34.0); Mean Corpuscular HGB Conc 33.3 g/dL (31.5-36.5); Mean Corpuscular Volume 92 fL (80-100); Mean Platelet Volume 9.8 fL (9.1-12.4); NEUTROPHILS ABSOLUTE AUTO 3.36 K/mm3 (1.96-9.15); NEUTROPHILS PERCENT AUTO 49 % (41-73); Platelet Count 221 K/mm3 (150-400); RDW Coefficient Variation 16.3 % (11.7-14.2); RDW Standard Deviation 55.2 fL (35.1-46.3); White Blood Cell Count 6.84 K/mm3 (4.00-11.30)
[2024-04-27 04:49] LABS: Alanine Aminotransfer (ALT/SGP 29 U/L (12-78); Albumin, Blood 3.4 g/dL (3.4-5.0); Albumin/Globulin Ratio 1.1 (0.8-1.8); Alk Phos 95 U/L (50-136); Anion Gap 10 mmol/L (3-11); Aspartate Aminotrans (AST/SGOT 23 U/L (12-37); Bilirubin, Total 0.6 mg/dL (0.1-1.0); Blood Urea Nitrogen 23 mg/dL (8-24); Bun/Creatinine Ratio 31.1 (12.0-20.0); CHOL/HDL RATIO 4.6; CO2, Blood 25 mmol/L (21-32); Calcium, Blood 10.7 mg/dL (8.5-10.1); Chloride, Blood 112 mmol/L (98-108); Cholesterol 176 mg/dL (50-200); Creatinine, Blood 0.74 mg/dL (0.40-1.00); Globulin, Blood 3.1 g/dL (2.2-4.0); Glomerular Filtration Rate 88 (60-); Glucose, Blood 86 mg/dL (70-99); HDL Cholesterol 38 mg/dL (>39); LDL/HDL RATIO 2.5; Low Density Lipoprotein Chol 95 mg/dL (0-110); Magnesium, Blood 2.1 mg/dL (1.6-2.4); Potassium, Blood 3.6 mmol/L (3.5-5.5); Sodium, Blood 143 mmol/L (136-145); Total Protein, Blood 6.5 g/dL (6.4-8.2); Triglycerides 214 mg/dL (30-160); Very Low Density Lipoprot Chol 42 mg/dL (6-32)
[2024-04-27 05:31] VITALS: BP 111/68
--- NOTE | 2024-04-27 05:51 | NUR ---
SHIFT SUMMERY PT WAS ADMITTED FROM ER PRIOR TO MY SHIFT. PT HAS BEEN ALERT AND ORIENTED X4 OVERNIGHT. SHE HAS HAD NO COMPLAINTS OF CHEST PAIN OR PRESSURE. SHE HAS BEEN MEDICATED PER EMAR FOR CHRONIC LOWER BACK PAIN. HER BP HAS BEEN WNL. SHE HAS BEEN SR ON THE DIRECT MARKETING EXECUTIVE. AFEBRILE.
[2024-04-27] MEDS ORDERED: Omeprazole 20 MG CapCR PO SCH (06:00)
--- NOTE | 2024-04-27 07:45 | NUR ---
INITIAL ASSESSMENT: Patient is awake alert and oriented x4. She reports 8/10 pain in her neck and back, she states she was taking Tylenol and Gabapentin at home for pain but her doctor told her to stop taking it in anticipation of a procedure. She is medicated with Dilaudid at this time. HRR, she does have a murmur, blood pressure stable. LS CTA, Biox WNL on RA. BT+. PPP. AM meds given with a sip of water at this time. She denies other needs at this time. Call light in reach.
[2024-04-27 08:00] VITALS: BP 130/88
[2024-04-27] MEDS ORDERED: Tamsulosin HCl 0.4 MG Cap PO SCH (09:00)
[2024-04-27] MEDS ORDERED: Aspirin 81 MG Chew PO SCH (09:00)
[2024-04-27] MEDS ORDERED: BuPROPion HCl 100 MG Tab PO SCH (09:00)
[2024-04-27] MEDS ORDERED: Enoxaparin 40 MG/0.4 ML SYR SC SCH (09:00)
[2024-04-27] MEDS ORDERED: BuPROPion HCl 75 MG Tab PO SCH (09:00)
--- NOTE | 2024-04-27 16:00 | NUR ---
DISCHARGE: ECHO results look similar to prior echo, patient has been cleared from a cardiology standpoint to be discharged and follow up with her hitting coach in [place]. Patient verbalized understanding of discharge instructions, she was discharged home via WC with her friend.
== END 2024-04-27 16:06 | disposition home or self-care (01) | DRG 305 ==
LOC: ER 23:18 → ERHOLD 04-26 04:37 → EDBEDREQ 04-26 05:39 → EDBEDREQSVC 04-26 05:39 → PCU 04-26 18:35
PROVIDERS: Student in an Organized Health Care Education/Training Program; ADMIT Internal Medicine
DX: I16.1 Hypertensive emergency (principal); I42.1 Obstructive hypertrophic cardiomyopathy; I10 Essential (primary) hypertension; I25.10 Atherosclerotic heart disease of native coronary artery without angina pectoris; I25.2 Old myocardial infarction; M79.7 Fibromyalgia; F41.9 Anxiety disorder, unspecified; F32.9 Major depressive disorder, single episode, unspecified; M54.50 Low back pain, unspecified; G89.29 Other chronic pain; M32.9 Systemic lupus erythematosus, unspecified; Z96.642 Presence of left artificial hip joint; J45.909 Unspecified asthma, uncomplicated; K44.9 Diaphragmatic hernia without obstruction or gangrene; Z87.442 Personal history of urinary calculi; Z87.19 Personal history of other diseases of the digestive system; Z90.710 Acquired absence of both cervix and uterus; Z90.722 Acquired absence of ovaries, bilateral; Z90.79 Acquired absence of other genital organ(s); Z98.51 Tubal ligation status; Z90.49 Acquired absence of other specified parts of digestive tract; Z90.89 Acquired absence of other organs; Z98.890 Other specified postprocedural states; F17.210 Nicotine dependence, cigarettes, uncomplicated; Z88.0 Allergy status to penicillin; Z88.8 Allergy status to other drugs, medicaments and biological substances; Z91.030 Bee allergy status; Z91.038 Other insect allergy status; Z79.899 Other long term (current) drug therapy
CPT/HCPCS: 36415; 71045; 71260; 80053; 80061; 83735; 84484; 85025; 85379; 93005; 93010; 93306; 94760; 96374-59; 96375; 96376; 99285-25; A9270; G0378; J0360; J1171; J1200; J1650; J2060; J2270; J2405; J7050; Q9967

== ENCOUNTER 2024-06-02 19:46 | Emergency (ER) | payer OTHER ==
[~2024-06-02] VITALS: Ht 160 cm; Wt 77.1 kg
[2024-06-02] MEDS ORDERED: Nitroglycerin 1 INCH/GM PKT TOP ONE (20:00)
[2024-06-02 20:33] VITALS: BP 128/76
[2024-06-02 21:05] LABS: BASOPHILS ABSOLUTE AUTO 0.07 K/mm3 (0.00-0.23); BASOPHILS PERCENT AUTO 1 % (0-2); EOSINOPHILS ABSOLUTE AUTO 0.02 K/mm3 (0.00-0.68); EOSINOPHILS PERCENT AUTO 0 % (0-6); Hematocrit 40.2 % (33.0-51.0); Hemoglobin 13.5 g/dL (11.5-16.0); IMMATURE GRAN ABSOLUTE AUTO 0.04 K/mm3 (0.00-0.10); IMMATURE GRAN PERCENT AUTO 1 % (0-1); LYMPHOCYTES ABSOLUTE AUTO 2.49 K/mm3 (0.84-5.20); LYMPHOCYTES PERCENT AUTO 35 % (21-46); MONOCYTES ABSOLUTE AUTO 0.69 K/mm3 (0.16-1.47); MONOCYTES PERCENT AUTO 10 % (4-13); Mean Corpuscular HGB 31.4 pg (26.0-34.0); Mean Corpuscular HGB Conc 33.6 g/dL (31.5-36.5); Mean Corpuscular Volume 94 fL (80-100); NEUTROPHILS ABSOLUTE AUTO 3.86 K/mm3 (1.96-9.15); NEUTROPHILS PERCENT AUTO 54 % (41-73); RDW Coefficient Variation 14.8 % (11.7-14.2); RDW Standard Deviation 51.6 fL (35.1-46.3); White Blood Cell Count 7.17 K/mm3 (4.00-11.30)
[2024-06-02 21:06] LABS: Mean Platelet Volume 9.9 fL (9.1-12.4); Platelet Count 188 K/mm3 (150-400)
[2024-06-02 21:15] LABS: Albumin, Blood 3.7 g/dL (3.4-5.0); Albumin/Globulin Ratio 1.3 (0.8-1.8); Bilirubin, Total 0.4 mg/dL (0.1-1.0); Bun/Creatinine Ratio 13.2 (12.0-20.0); Calcium, Blood 11.5 mg/dL (8.5-10.1); Creatinine, Blood 0.83 mg/dL (0.40-1.00); Globulin, Blood 2.8 g/dL (2.2-4.0); Potassium, Blood 3.9 mmol/L (3.5-5.5); Total Protein, Blood 6.5 g/dL (6.4-8.2)
== END 2024-06-02 21:51 | disposition home or self-care (01) ==
LOC: ER 19:46
PROVIDERS: Emergency Medicine
DX: R07.9 Chest pain, unspecified (principal); I10 Essential (primary) hypertension; I25.10 Atherosclerotic heart disease of native coronary artery without angina pectoris; I25.2 Old myocardial infarction; E11.9 Type 2 diabetes mellitus without complications; J45.909 Unspecified asthma, uncomplicated; E78.5 Hyperlipidemia, unspecified; Z88.8 Allergy status to other drugs, medicaments and biological substances; Z88.1 Allergy status to other antibiotic agents; Z91.030 Bee allergy status; Z79.899 Other long term (current) drug therapy; Z87.891 Personal history of nicotine dependence
CPT/HCPCS: 71045; 80053; 84484; 85025; 93005; 93010; 99285-25; A9270

== ENCOUNTER 2024-06-17 20:34 | Emergency (ER) | payer OTHER ==
[~2024-06-17] VITALS: Ht 167.6 cm; Wt 90.7 kg
[2024-06-17] MEDS ORDERED: Diphth,Pertuss(Acell),Tet Vac 0.5 ML VIAL IM ONE (21:35)
[2024-06-17 22:09] VITALS: BP 140/73
== END 2024-06-17 22:08 | disposition home or self-care (01) ==
LOC: ER 20:34
DX: S01.01XA Laceration without foreign body of scalp, initial encounter (principal); E11.9 Type 2 diabetes mellitus without complications; I10 Essential (primary) hypertension; I25.10 Atherosclerotic heart disease of native coronary artery without angina pectoris; I25.2 Old myocardial infarction; I42.1 Obstructive hypertrophic cardiomyopathy; E78.5 Hyperlipidemia, unspecified; J45.909 Unspecified asthma, uncomplicated; M32.9 Systemic lupus erythematosus, unspecified; Z87.891 Personal history of nicotine dependence; Z96.643 Presence of artificial hip joint, bilateral; Z91.030 Bee allergy status; Z88.8 Allergy status to other drugs, medicaments and biological substances; Z88.0 Allergy status to penicillin; Z88.1 Allergy status to other antibiotic agents; Z79.83 Long term (current) use of bisphosphonates; Z79.899 Other long term (current) drug therapy; Y04.2XXA Assault by strike against or bumped into by another person, initial encounter
CPT/HCPCS: 12001; 70450; 73502; 90471; 90715; 99284-25

== ENCOUNTER 2024-06-21 04:38 | Emergency (ER) | payer OTHER ==
[~2024-06-21] VITALS: Ht 157.5 cm; Wt 80.3 kg
[2024-06-21] MEDS ORDERED: Ketorolac Tromethamine 15mg Vial IV ONE (06:15)
[2024-06-21] MEDS ORDERED: NS 1,000 ML IV SCH (06:15)
[2024-06-21] MEDS ORDERED: Acetaminophen 500 MG Tab PO ONE (06:15)
[2024-06-21] MEDS ORDERED: Ondansetron HCl 2 MG / ML 2ML Vial IV ONE (06:45)
[2024-06-21] MEDS ORDERED: ONDA4 PO (07:03)
[2024-06-21 07:18] VITALS: BP 150/90
== END 2024-06-21 07:19 | disposition home or self-care (01) ==
LOC: ER 04:38
DX: R51.9 Headache, unspecified (principal); I10 Essential (primary) hypertension; E11.9 Type 2 diabetes mellitus without complications; J45.909 Unspecified asthma, uncomplicated; E78.5 Hyperlipidemia, unspecified; Z91.030 Bee allergy status; Z88.0 Allergy status to penicillin; Z88.1 Allergy status to other antibiotic agents; Z88.6 Allergy status to analgesic agent; Z79.899 Other long term (current) drug therapy; Z87.891 Personal history of nicotine dependence
CPT/HCPCS: 96374; 96375; 99283-25; A9270; J1885; J2405; J7030

== ENCOUNTER 2024-07-12 13:49 | Observation (INO) | payer OTHER ==
[~2024-07-12] VITALS: Ht 167.6 cm; Wt 90.7 kg
[~2024-07-12 13:49] MED LIST changes: +CARV3.125 PO; +TRAZ150T57 PO
[2024-07-12] MEDS ORDERED: ECOTRIN325 MG PO (14:17)
[2024-07-12 15:11] LABS: BASOPHILS ABSOLUTE AUTO 0.06 K/mm3 (0.00-0.23); BASOPHILS PERCENT AUTO 1 % (0-2); EOSINOPHILS ABSOLUTE AUTO 0.03 K/mm3 (0.00-0.68); EOSINOPHILS PERCENT AUTO 0 % (0-6); Hematocrit 34.4 % (33.0-51.0); Hemoglobin 11.1 g/dL (11.5-16.0); IMMATURE GRAN ABSOLUTE AUTO 0.03 K/mm3 (0.00-0.10); IMMATURE GRAN PERCENT AUTO 0 % (0-1); LYMPHOCYTES ABSOLUTE AUTO 1.15 K/mm3 (0.84-5.20); LYMPHOCYTES PERCENT AUTO 12 % (21-46); MONOCYTES PERCENT AUTO 9 % (4-13); Mean Corpuscular HGB 32.6 pg (26.0-34.0); Mean Corpuscular HGB Conc 32.3 g/dL (31.5-36.5); Mean Corpuscular Volume 101 fL (80-100); Mean Platelet Volume 9.2 fL (9.1-12.4); NEUTROPHILS PERCENT AUTO 78 % (41-73); Platelet Count 439 K/mm3 (150-400); RDW Coefficient Variation 15.9 % (11.7-14.2); RDW Standard Deviation 57.9 fL (35.1-46.3); White Blood Cell Count 9.27 K/mm3 (4.00-11.30)
[2024-07-12] MEDS ORDERED: LORazepam 2 MG/ML 1ML Injection IV ONE (15:25)
[2024-07-12 15:27] LABS: Albumin, Blood 3.1 g/dL (3.4-5.0); Albumin/Globulin Ratio 0.9 (0.8-1.8); Bilirubin, Total 0.3 mg/dL (0.1-1.0); Bun/Creatinine Ratio 13.6 (12.0-20.0); Calcium, Blood 10.7 mg/dL (8.5-10.1); Creatinine, Blood 0.59 mg/dL (0.40-1.00); Globulin, Blood 3.5 g/dL (2.2-4.0); Potassium, Blood 3.7 mmol/L (3.5-5.5); Total Protein, Blood 6.6 g/dL (6.4-8.2)
[2024-07-12] MEDS ORDERED: FentaNYL Citrate 50 MCG/ML 2 ML Injection IV PRN (17:45)
[2024-07-12] MEDS ORDERED: FLU VACC TS2024-25(6MOS UP)/PF 45 MCG/0.5 ML SYRINGE IM SCH (17:45)
[2024-07-12] MEDS ORDERED: Ondansetron HCl 2 MG / ML 2ML Vial IV PRN (17:45)
[2024-07-12] MEDS ORDERED: Acetaminophen 325 MG TABLET PO PRN (17:45)
[2024-07-12 18:00] VITALS: BP 177/105
[2024-07-12] MEDS ORDERED: Mag Hydrox/Al Hydrox/Simeth 18 ML,Lidocaine 2% Viscous Soln 9 ML,Atropine/Scopalam/Hyos... PO PRN (18:00)
[2024-07-12] MEDS ORDERED: Enoxaparin 40 MG/0.4 ML SYR SC SCH (18:00)
[2024-07-12 19:00] VITALS: BP 162/105
[2024-07-12] MEDS ORDERED: OXYC5 (19:24)
[2024-07-12] MEDS ORDERED: HydrALAZINE HCl 20 MG / ML 1ML Vial IV PRN (19:30)
[2024-07-12] MEDS ORDERED: OxyCODONE HCL 5 MG TAB PO PRN (19:35)
[2024-07-12] MEDS ORDERED: HydrOXYzine Pamoate 50 MG Cap PO PRN (19:40)
[2024-07-12 20:00] VITALS: BP 164/104
[2024-07-12] MEDS ORDERED: Prazosin HCL 5 MG Cap PO SCH (21:00)
[2024-07-12] MEDS ORDERED: Prazosin HCl 1 MG Cap PO SCH (21:00)
[2024-07-12] MEDS ORDERED: rOPINIRole HCl 2 MG Tab PO SCH (21:00)
[2024-07-12] MEDS ORDERED: TraZODone HCl 100 MG Tab PO SCH (21:00)
[2024-07-12] MEDS ORDERED: Ascorbic Acid 500 MG Tab PO SCH (21:00)
[2024-07-12 22:06] VITALS: BP 126/87
[2024-07-13 01:18] LABS: BASOPHILS ABSOLUTE AUTO 0.04 K/mm3 (0.00-0.23); BASOPHILS PERCENT AUTO 1 % (0-2); EOSINOPHILS ABSOLUTE AUTO 0.06 K/mm3 (0.00-0.68); EOSINOPHILS PERCENT AUTO 1 % (0-6); Hemoglobin 9.9 g/dL (11.5-16.0); IMMATURE GRAN ABSOLUTE AUTO 0.02 K/mm3 (0.00-0.10); IMMATURE GRAN PERCENT AUTO 0 % (0-1); LYMPHOCYTES ABSOLUTE AUTO 1.24 K/mm3 (0.84-5.20); LYMPHOCYTES PERCENT AUTO 20 % (21-46); MONOCYTES ABSOLUTE AUTO 0.66 K/mm3 (0.16-1.47); MONOCYTES PERCENT AUTO 11 % (4-13); Mean Corpuscular HGB 31.8 pg (26.0-34.0); Mean Corpuscular HGB Conc 30.9 g/dL (31.5-36.5); Mean Corpuscular Volume 103 fL (80-100); Mean Platelet Volume 8.8 fL (9.1-12.4); NEUTROPHILS ABSOLUTE AUTO 4.27 K/mm3 (1.96-9.15); NEUTROPHILS PERCENT AUTO 68 % (41-73); Platelet Count 334 K/mm3 (150-400); RDW Standard Deviation 60.2 fL (35.1-46.3); Red Blood Cell Count 3.11 M/mm3 (3.80-5.20); White Blood Cell Count 6.29 K/mm3 (4.00-11.30)
[2024-07-13 01:37] LABS: Albumin, Blood 2.8 g/dL (3.4-5.0); Albumin/Globulin Ratio 0.9 (0.8-1.8); Bilirubin, Total 0.4 mg/dL (0.1-1.0); Bun/Creatinine Ratio 12.1 (12.0-20.0); Calcium, Blood 9.9 mg/dL (8.5-10.1); Creatinine, Blood 0.49 mg/dL (0.40-1.00); Globulin, Blood 3.1 g/dL (2.2-4.0); Potassium, Blood 3.2 mmol/L (3.5-5.5); Total Protein, Blood 5.9 g/dL (6.4-8.2)
[2024-07-13 02:47] VITALS: BP 144/92
[2024-07-13] MEDS ORDERED: Potassium Chloride 40 MEQ in NS 250 ML IV ONE (03:30)
[2024-07-13] MEDS ORDERED: Ondansetron 4 MG TAB PO ONE (04:10)
[2024-07-13] MEDS ORDERED: LORazepam 2 MG/ML 1ML Injection IV ONE (05:15)
[2024-07-13 07:50] VITALS: BP 149/111
[2024-07-13] MEDS ORDERED: Carvedilol 25 MG Tab PO SCH (08:00)
[2024-07-13] MEDS ORDERED: DULoxetine HCL 60 MG Capsule DR PO SCH (09:00)
[2024-07-13] MEDS ORDERED: Tamsulosin HCl 0.4 MG Cap PO SCH (09:00)
[2024-07-13] MEDS ORDERED: buPROPion HCL 150 MG TAB.SR.12H PO SCH (09:00)
[2024-07-13] MEDS ORDERED: Aspirin 325 MG TabEC PO SCH (09:00)
[2024-07-13 09:14] LABS: Bun/Creatinine Ratio 12.4 (12.0-20.0); Calcium, Blood 10.1 mg/dL (8.5-10.1); Creatinine, Blood 0.56 mg/dL (0.40-1.00); Potassium, Blood 4.2 mmol/L (3.5-5.5)
[2024-07-13] MEDS ORDERED: LORazepam 2 MG/ML 1ML Injection IV PRN (12:10)
[2024-07-13 12:29] VITALS: BP 141/84
[2024-07-13] MEDS ORDERED: TRAM50 PO (14:03)
[2024-07-13] MEDS ORDERED: BUPRENORP-NALO1 EAC3 SL (14:06)
[2024-07-13 15:20] VITALS: BP 193/109
[2024-07-13 16:32] VITALS: BP 96/75
[2024-07-13 16:49] VITALS: BP 177/89
--- NOTE | 2024-07-13 20:59 | NUR ---
DISCHARGE SUMMARY PATIENT IS BEING DISCHARGED. PATIENTS FRIEND IS TRANSFERRING/TRANSPORTING PATIENT HOME. POWERGLIDE DCD W/O INCIDENT. PATIENT EDUCATION GIVEN.
== END 2024-07-13 20:51 | disposition home health service (06) ==
LOC: ER 13:49 → MEDS 13:50
PROVIDERS: Physician Assistant; ADMIT Internal Medicine
DX: R07.89 Other chest pain (principal); R79.89 Other specified abnormal findings of blood chemistry; E11.43 Type 2 diabetes mellitus with diabetic autonomic (poly)neuropathy; K31.84 Gastroparesis; I10 Essential (primary) hypertension; J45.909 Unspecified asthma, uncomplicated; M32.9 Systemic lupus erythematosus, unspecified; M79.7 Fibromyalgia; E78.5 Hyperlipidemia, unspecified; Z95.2 Presence of prosthetic heart valve; Z87.891 Personal history of nicotine dependence; Z87.820 Personal history of traumatic brain injury; Z79.82 Long term (current) use of aspirin; Z79.899 Other long term (current) drug therapy; Z88.0 Allergy status to penicillin; Z88.1 Allergy status to other antibiotic agents; Z88.8 Allergy status to other drugs, medicaments and biological substances; Z91.030 Bee allergy status; Z91.038 Other insect allergy status
CPT/HCPCS: 36415; 71260; 80048; 80053; 82947; 83735; 83880; 84484; 85025; 85379; 93005; 93010; 93306; 96365; 96366; 96374-59; 96375; 96375-59; 96376; 99285-25; A9270; G0378; J0360; J2060; J2405; J3010; J3480; J7050; Q9967

== ENCOUNTER 2024-08-29 12:55 | Inpatient (IN) | payer OTHER ==
[~2024-08-29] VITALS: Ht 165.1 cm; Wt 76.9 kg
[2024-08-31 07:28] VITALS: BP 148/87
== END 2024-08-31 18:29 | disposition home or self-care (01) | DRG 871 ==
LOC: ER 12:55 → PCU 15:24
PROVIDERS: ADMIT Internal Medicine
DX: A41.51 Sepsis due to Escherichia coli [E. coli] (principal); I21.A1 Myocardial infarction type 2; N39.0 Urinary tract infection, site not specified; I42.1 Obstructive hypertrophic cardiomyopathy; E87.1 Hypo-osmolality and hyponatremia; I25.10 Atherosclerotic heart disease of native coronary artery without angina pectoris; E87.6 Hypokalemia; E11.9 Type 2 diabetes mellitus without complications; F41.9 Anxiety disorder, unspecified; Z95.2 Presence of prosthetic heart valve; Z98.890 Other specified postprocedural states; E78.5 Hyperlipidemia, unspecified; Z88.0 Allergy status to penicillin; Z88.8 Allergy status to other drugs, medicaments and biological substances; Z91.038 Other insect allergy status; Z79.82 Long term (current) use of aspirin; Z79.899 Other long term (current) drug therapy; M79.7 Fibromyalgia; Z87.442 Personal history of urinary calculi; M54.50 Low back pain, unspecified; G89.29 Other chronic pain; J45.909 Unspecified asthma, uncomplicated; M32.9 Systemic lupus erythematosus, unspecified; Z87.19 Personal history of other diseases of the digestive system; R07.89 Other chest pain; I25.2 Old myocardial infarction; Z98.51 Tubal ligation status; Z98.1 Arthrodesis status; Z90.49 Acquired absence of other specified parts of digestive tract; Z90.710 Acquired absence of both cervix and uterus; Z90.722 Acquired absence of ovaries, bilateral; Z90.79 Acquired absence of other genital organ(s); Z87.891 Personal history of nicotine dependence

== ENCOUNTER → 2024-09-22 | Outpatient (CLI) | payer OTHER ==
[~2024-09-22] MED LIST changes: +ASPIR 8181 M1 PO; +ATOR20 PO; +BUPRENORP-NALO1 EAC3 SL; +ECOTRIN325 MG PO; +FAMO20 PO; +HYDCHL25 PO; +IBUP400 PO; +Morphine Sulfat15 MG PO; +OXYC5; +SULTRIDS PO
== END | disposition home or self-care (01) ==
LOC: LAB SHORT 16:00 → LAB 16:00
DX: N39.0 Urinary tract infection, site not specified (principal); R31.9 Hematuria, unspecified
CPT/HCPCS: 87077; 87086; 87186

== ENCOUNTER → 2024-10-09 | Outpatient (CLI) | payer OTHER | LOC: LAB 17:12 → LAB SHORT 17:12 | DX: R30.0 Dysuria (principal) | CPT/HCPCS: 87086 ==

== ENCOUNTER → 2024-10-22 | Outpatient (CLI) | payer OTHER ==
[2024-10-22 18:40] LABS: BASOPHILS ABSOLUTE AUTO 0.05 K/mm3 (0.00-0.23); BASOPHILS PERCENT AUTO 1 % (0-2); EOSINOPHILS ABSOLUTE AUTO 0.32 K/mm3 (0.00-0.68); EOSINOPHILS PERCENT AUTO 6 % (0-6); Hematocrit 32.7 % (33.0-51.0); Hemoglobin 9.7 g/dL (11.5-16.0); IMMATURE GRAN ABSOLUTE AUTO 0.02 K/mm3 (0.00-0.10); IMMATURE GRAN PERCENT AUTO 0 % (0-1); LYMPHOCYTES ABSOLUTE AUTO 1.62 K/mm3 (0.84-5.20); LYMPHOCYTES PERCENT AUTO 30 % (21-46); MONOCYTES ABSOLUTE AUTO 0.53 K/mm3 (0.16-1.47); MONOCYTES PERCENT AUTO 10 % (4-13); Mean Corpuscular HGB Conc 29.7 g/dL (31.5-36.5); Mean Corpuscular Volume 92 fL (80-100); NEUTROPHILS ABSOLUTE AUTO 2.81 K/mm3 (1.96-9.15); NEUTROPHILS PERCENT AUTO 53 % (41-73); NRBC ABSOLUTE 0.00 K/mm3 (0.00-0.02); NRBC Auto 0.0 /100 WBC (0.0-0.2); Platelet Count 252 K/mm3 (150-400); RDW Coefficient Variation 18.6 % (11.7-14.2); RDW Standard Deviation 62.2 fL (35.1-46.3)
[2024-10-22 19:33] LABS: Alanine Aminotransfer (ALT/SGP 13.0 U/L (12-78); Albumin, Blood 3.2 g/dL (3.4-5.0); Albumin/Globulin Ratio 1.0 (0.8-1.8); Anion Gap 7.0 mmol/L (3-11); Aspartate Aminotrans (AST/SGOT 13.0 U/L (12-37); Bilirubin, Total 0.3 mg/dL (0.1-1.0); Blood Urea Nitrogen 19.0 mg/dL (8-24); CO2, Blood 26.0 mmol/L (21-32); Calcium, Blood 10.6 mg/dL (8.5-10.1); Chloride, Blood 109.0 mmol/L (98-108); Creatinine, Blood 0.9 mg/dL (0.40-1.00); Globulin, Blood 3.2 g/dL (2.2-4.0); Glucose, Blood 87.0 mg/dL (70-99); Potassium, Blood 4.6 mmol/L (3.5-5.5); Sodium, Blood 137.0 mmol/L (136-145); Total Protein, Blood 6.4 g/dL (6.4-8.2)
== END ==
LOC: LAB SHORT 16:42 → LAB 16:42
PROVIDERS: Internal Medicine Rheumatology
DX: L93.0 Discoid lupus erythematosus (principal)
CPT/HCPCS: 80053; 85025; 85651

== ENCOUNTER 2024-10-25 16:45 | Emergency (ER) | payer OTHER ==
[~2024-10-25] VITALS: Ht 157.5 cm; Wt 80.7 kg
[2024-10-25] MEDS ORDERED: Morphine Sulfate 4 MG/1 ML Injection IV ONE (17:40)
[2024-10-25] MEDS ORDERED: Ketorolac Tromethamine 15mg Vial IV ONE (17:40)
[2024-10-25 18:00] VITALS: BP 134/72
[2024-10-25 18:11] LABS: BASOPHILS ABSOLUTE AUTO 0.06 K/mm3 (0.00-0.23); BASOPHILS PERCENT AUTO 1 % (0-2); EOSINOPHILS ABSOLUTE AUTO 0.22 K/mm3 (0.00-0.68); EOSINOPHILS PERCENT AUTO 3 % (0-6); Hematocrit 33.5 % (33.0-51.0); Hemoglobin 9.9 g/dL (11.5-16.0); IMMATURE GRAN ABSOLUTE AUTO 0.03 K/mm3 (0.00-0.10); IMMATURE GRAN PERCENT AUTO 0 % (0-1); LYMPHOCYTES ABSOLUTE AUTO 1.24 K/mm3 (0.84-5.20); LYMPHOCYTES PERCENT AUTO 15 % (21-46); MONOCYTES ABSOLUTE AUTO 0.85 K/mm3 (0.16-1.47); MONOCYTES PERCENT AUTO 10 % (4-13); Mean Corpuscular HGB Conc 29.6 g/dL (31.5-36.5); Mean Corpuscular Volume 91 fL (80-100); NEUTROPHILS ABSOLUTE AUTO 5.76 K/mm3 (1.96-9.15); NEUTROPHILS PERCENT AUTO 71 % (41-73); NRBC ABSOLUTE 0.00 K/mm3 (0.00-0.02); NRBC Auto 0.0 /100 WBC (0.0-0.2); Platelet Count 244 K/mm3 (150-400); RDW Coefficient Variation 18.4 % (11.7-14.2); RDW Standard Deviation 61.4 fL (35.1-46.3)
[2024-10-25 18:45] LABS: Alanine Aminotransfer (ALT/SGP 15.0 U/L (12-78); Albumin, Blood 3.2 g/dL (3.4-5.0); Albumin/Globulin Ratio 1.0 (0.8-1.8); Anion Gap 6.0 mmol/L (3-11); Aspartate Aminotrans (AST/SGOT 23.0 U/L (12-37); Bilirubin, Total 0.7 mg/dL (0.1-1.0); Blood Urea Nitrogen 16.0 mg/dL (8-24); CO2, Blood 25.0 mmol/L (21-32); Calcium, Blood 10.3 mg/dL (8.5-10.1); Chloride, Blood 109.0 mmol/L (98-108); Creatinine, Blood 1.01 mg/dL (0.40-1.00); Globulin, Blood 3.2 g/dL (2.2-4.0); Glucose, Blood 97.0 mg/dL (70-99); Potassium, Blood 4.0 mmol/L (3.5-5.5); Sodium, Blood 136.0 mmol/L (136-145); Total Protein, Blood 6.4 g/dL (6.4-8.2)
[2024-10-25] MEDS ORDERED: RX Prepack 6 Tabs Oxycodone 5mg UD ONE (19:40)
[2024-10-25] MEDS ORDERED: HYDR1TAB94 PO ×2 (19:41→20:14)
== END 2024-10-25 20:00 | disposition home or self-care (01) ==
LOC: ER 16:45
PROVIDERS: Student in an Organized Health Care Education/Training Program
DX: S22.32XA Fracture of one rib, left side, initial encounter for closed fracture (principal); I10 Essential (primary) hypertension; E11.9 Type 2 diabetes mellitus without complications; J45.909 Unspecified asthma, uncomplicated; E78.5 Hyperlipidemia, unspecified; Z87.891 Personal history of nicotine dependence; Z88.1 Allergy status to other antibiotic agents; Z88.0 Allergy status to penicillin; Z88.8 Allergy status to other drugs, medicaments and biological substances; Z79.899 Other long term (current) drug therapy; Z79.2 Long term (current) use of antibiotics; Z79.82 Long term (current) use of aspirin; W22.8XXA Striking against or struck by other objects, initial encounter
CPT/HCPCS: 71046; 80053; 83880; 84484; 85025; 93005; 93010; 96374; 96375; 99284-25; A9270; J1885; J2270

== ENCOUNTER 2024-11-04 16:10 | Emergency (ER) | payer OTHER ==
[~2024-11-04] VITALS: Ht 160 cm; Wt 77.1 kg
[2024-11-04 16:33] VITALS: BP 132/91
[2024-11-04] MEDS ORDERED: Morphine Sulfate 4 MG/1 ML Injection IV ONE ×2 (16:40→20:10)
[2024-11-04] MEDS ORDERED: Ondansetron HCl 2 MG / ML 2ML Vial IV ONE (16:40)
[2024-11-04 17:03] LABS: BASOPHILS ABSOLUTE AUTO 0.09 K/mm3 (0.00-0.23); BASOPHILS PERCENT AUTO 1 % (0-2); EOSINOPHILS ABSOLUTE AUTO 0.22 K/mm3 (0.00-0.68); EOSINOPHILS PERCENT AUTO 3 % (0-6); Hematocrit 37.1 % (33.0-51.0); Hemoglobin 11.3 g/dL (11.5-16.0); IMMATURE GRAN ABSOLUTE AUTO 0.01 K/mm3 (0.00-0.10); IMMATURE GRAN PERCENT AUTO 0 % (0-1); LYMPHOCYTES ABSOLUTE AUTO 1.57 K/mm3 (0.84-5.20); LYMPHOCYTES PERCENT AUTO 23 % (21-46); MONOCYTES ABSOLUTE AUTO 0.41 K/mm3 (0.16-1.47); MONOCYTES PERCENT AUTO 6 % (4-13); Mean Corpuscular HGB Conc 30.5 g/dL (31.5-36.5); Mean Corpuscular Volume 91 fL (80-100); NEUTROPHILS ABSOLUTE AUTO 4.45 K/mm3 (1.96-9.15); NEUTROPHILS PERCENT AUTO 66 % (41-73); NRBC ABSOLUTE 0.00 K/mm3 (0.00-0.02); NRBC Auto 0.0 /100 WBC (0.0-0.2); Platelet Count 278 K/mm3 (150-400); RDW Coefficient Variation 16.8 % (11.7-14.2); RDW Standard Deviation 56.2 fL (35.1-46.3)
[2024-11-04 18:02] LABS: Alanine Aminotransfer (ALT/SGP 18.0 U/L (12-78); Albumin, Blood 3.6 g/dL (3.4-5.0); Albumin/Globulin Ratio 1.0 (0.8-1.8); Anion Gap 5.0 mmol/L (3-11); Aspartate Aminotrans (AST/SGOT 21.0 U/L (12-37); Bilirubin, Total 0.4 mg/dL (0.1-1.0); Blood Urea Nitrogen 20.0 mg/dL (8-24); CO2, Blood 25.0 mmol/L (21-32); Calcium, Blood 10.6 mg/dL (8.5-10.1); Chloride, Blood 108.0 mmol/L (98-108); Creatinine, Blood 0.95 mg/dL (0.40-1.00); Globulin, Blood 3.5 g/dL (2.2-4.0); Glucose, Blood 127.0 mg/dL (70-99); Potassium, Blood 4.2 mmol/L (3.5-5.5); Sodium, Blood 134.0 mmol/L (136-145); Total Protein, Blood 7.1 g/dL (6.4-8.2)
[2024-11-04 20:28] LABS: Source, Urine Voided
[2024-11-04 20:34] LABS: Color, Urine Amber (P-Yellow); Glucose Qualitative, Urine Neg (Neg); Ketones, Urine Neg (Neg); Leukocyte Esterase, Urine 1+ (Neg); Protein, Urine 3+ (Neg); Specific Gravity, Urine 1.015 (1.003-1.022); Urobilinogen, Urine 3+ (Normal)
[2024-11-04 20:48] LABS: Bilirubin, Urine 3+ (Neg)
[2024-11-04 20:49] LABS: Red Blood Cells, Urine TNTC /hpf (0-2)
[2024-11-04] MEDS ORDERED: Ketorolac Tromethamine 30mg Vial IV ONE (21:35)
[2024-11-04] MEDS ORDERED: IBUP600 PO (21:45)
== END 2024-11-04 21:46 | disposition home or self-care (01) ==
LOC: ER 16:10
PROVIDERS: Emergency Medicine
DX: T83.89XA Other specified complication of genitourinary prosthetic devices, implants and grafts, initial encounter (principal); R35.0 Frequency of micturition; E11.9 Type 2 diabetes mellitus without complications; I10 Essential (primary) hypertension; E78.5 Hyperlipidemia, unspecified; J45.909 Unspecified asthma, uncomplicated; M32.9 Systemic lupus erythematosus, unspecified; I25.10 Atherosclerotic heart disease of native coronary artery without angina pectoris; I25.2 Old myocardial infarction; Z87.891 Personal history of nicotine dependence; Z91.030 Bee allergy status; Z88.8 Allergy status to other drugs, medicaments and biological substances; Z88.0 Allergy status to penicillin; Z88.1 Allergy status to other antibiotic agents; Z79.83 Long term (current) use of bisphosphonates; Z79.82 Long term (current) use of aspirin; Z79.899 Other long term (current) drug therapy
CPT/HCPCS: 51798; 74177; 80053; 81001; 85025; 87086; 96374-59; 96375; 99284-25; J1885; J2270; J2405; Q9967

== ENCOUNTER → 2024-11-13 | Outpatient (CLI) | payer OTHER ==
[~2024-11-13] MED LIST changes: +IBUP600 PO
== END ==
LOC: LAB 15:38 → LAB SHORT 15:38
DX: N20.0 Calculus of kidney (principal)
CPT/HCPCS: 87086

== ENCOUNTER 2024-12-06 15:20 | Emergency (ER) | payer OTHER ==
[~2024-12-06] VITALS: Ht 160 cm; Wt 77.1 kg
[2024-12-06] MEDS ORDERED: HYDROcodone 10-APAP 325 TAB PO ONE (16:55)
[2024-12-06 20:00] VITALS: BP 140/88
== END 2024-12-06 20:28 | disposition home or self-care (01) ==
LOC: ER 15:20
DX: M25.551 Pain in right hip (principal); M25.552 Pain in left hip; R07.89 Other chest pain; R51.9 Headache, unspecified; E11.43 Type 2 diabetes mellitus with diabetic autonomic (poly)neuropathy; K31.84 Gastroparesis; J45.909 Unspecified asthma, uncomplicated; I25.2 Old myocardial infarction; Z87.891 Personal history of nicotine dependence; Z91.81 History of falling; Z88.0 Allergy status to penicillin; Z88.1 Allergy status to other antibiotic agents; Z88.8 Allergy status to other drugs, medicaments and biological substances; Z91.030 Bee allergy status; Z79.82 Long term (current) use of aspirin; Z79.899 Other long term (current) drug therapy
CPT/HCPCS: 70450; 71250; 72125; 72192; 73522; 99285-25; A9270

== ENCOUNTER 2024-12-12 10:48 | Emergency (ER) | payer OTHER ==
[~2024-12-12] VITALS: Ht 165.1 cm; Wt 77.1 kg
[2024-12-12 11:41] VITALS: BP 135/91
[2024-12-12] MEDS ORDERED: Ketorolac Tromethamine 30mg Vial IM ONE (16:45)
[2024-12-12] MEDS ORDERED: Lidocaine 4% 1 Patch TOP ONE (16:45)
== END 2024-12-12 17:15 | disposition home or self-care (01) ==
LOC: ER 10:48
DX: S89.91XA Unspecified injury of right lower leg, initial encounter (principal); W06.XXXA Fall from bed, initial encounter; M17.11 Unilateral primary osteoarthritis, right knee; Z87.891 Personal history of nicotine dependence; E11.9 Type 2 diabetes mellitus without complications; E78.5 Hyperlipidemia, unspecified; J45.909 Unspecified asthma, uncomplicated; I25.2 Old myocardial infarction; I10 Essential (primary) hypertension; Z79.82 Long term (current) use of aspirin; Z79.899 Other long term (current) drug therapy; Z91.038 Other insect allergy status; Z88.0 Allergy status to penicillin; Z88.1 Allergy status to other antibiotic agents; Z88.8 Allergy status to other drugs, medicaments and biological substances
CPT/HCPCS: 73562-RT; 96372; 99283-25; A9270; J1885

== ENCOUNTER 2025-02-02 17:14 | Observation (INO) | payer OTHER ==
[~2025-02-02] VITALS: Ht 157.5 cm; Wt 76.1 kg
[2025-02-02] MEDS ORDERED: Ondansetron HCl 2 MG / ML 2ML Vial IV ONE (21:00)
[2025-02-02] MEDS ORDERED: Morphine Sulfate 4 MG/1 ML Injection IV ONE (21:00)
[2025-02-02 21:02] LABS: BASOPHILS ABSOLUTE AUTO 0.06 K/mm3 (0.00-0.23); BASOPHILS PERCENT AUTO 1 % (0-2); EOSINOPHILS ABSOLUTE AUTO 0.08 K/mm3 (0.00-0.68); EOSINOPHILS PERCENT AUTO 1 % (0-6); Hematocrit 36.4 % (33.0-51.0); Hemoglobin 11.5 g/dL (11.5-16.0); IMMATURE GRAN ABSOLUTE AUTO 0.03 K/mm3 (0.00-0.10); IMMATURE GRAN PERCENT AUTO 0 % (0-1); LYMPHOCYTES ABSOLUTE AUTO 1.34 K/mm3 (0.84-5.20); LYMPHOCYTES PERCENT AUTO 17 % (21-46); MONOCYTES ABSOLUTE AUTO 0.70 K/mm3 (0.16-1.47); MONOCYTES PERCENT AUTO 9 % (4-13); Mean Corpuscular HGB Conc 31.6 g/dL (31.5-36.5); Mean Corpuscular Volume 89 fL (80-100); NEUTROPHILS ABSOLUTE AUTO 5.70 K/mm3 (1.96-9.15); NEUTROPHILS PERCENT AUTO 72 % (41-73); NRBC ABSOLUTE 0.00 K/mm3 (0.00-0.02); NRBC Auto 0.0 /100 WBC (0.0-0.2); Platelet Count 320 K/mm3 (150-400); RDW Coefficient Variation 18.5 % (11.7-14.2); RDW Standard Deviation 59.0 fL (35.1-46.3)
[2025-02-02 21:25] LABS: Alanine Aminotransfer (ALT/SGP 20.0 U/L (12-78); Albumin, Blood 3.2 g/dL (3.4-5.0); Albumin/Globulin Ratio 0.9 (0.8-1.8); Anion Gap 7.0 mmol/L (3-11); Aspartate Aminotrans (AST/SGOT 17.0 U/L (12-37); Bilirubin, Total 0.2 mg/dL (0.1-1.0); Blood Urea Nitrogen 19.0 mg/dL (8-24); CO2, Blood 25.0 mmol/L (21-32); Calcium, Blood 10.9 mg/dL (8.5-10.1); Chloride, Blood 109.0 mmol/L (98-108); Creatinine, Blood 0.96 mg/dL (0.40-1.00); Globulin, Blood 3.5 g/dL (2.2-4.0); Glucose, Blood 89.0 mg/dL (70-99); Potassium, Blood 4.2 mmol/L (3.5-5.5); Sodium, Blood 137.0 mmol/L (136-145); Total Protein, Blood 6.7 g/dL (6.4-8.2)
[2025-02-03] MEDS ORDERED: HydrALAZINE HCl 20 MG / ML 1ML Vial IV ONE (00:10)
[2025-02-03] MEDS ORDERED: FLU VACC TS2025(65UP)/MF59C/PF 45 MCG/0.5 ML SYRINGE IM SCH (00:40)
[2025-02-03] MEDS ORDERED: Naloxone HCl 0.4MG / ML 1ML Vial IV PRN (00:45)
[2025-02-03 02:15] VITALS: BP 161/91
[2025-02-03] MEDS ORDERED: FentaNYL Citrate 50 MCG/ML 2 ML Injection IV ONE (06:05)
[2025-02-03 06:46] LABS: BASOPHILS ABSOLUTE AUTO 0.06 K/mm3 (0.00-0.23); BASOPHILS PERCENT AUTO 1 % (0-2); EOSINOPHILS ABSOLUTE AUTO 0.10 K/mm3 (0.00-0.68); EOSINOPHILS PERCENT AUTO 1 % (0-6); Hematocrit 34.7 % (33.0-51.0); Hemoglobin 11.0 g/dL (11.5-16.0); IMMATURE GRAN ABSOLUTE AUTO 0.03 K/mm3 (0.00-0.10); IMMATURE GRAN PERCENT AUTO 0 % (0-1); LYMPHOCYTES ABSOLUTE AUTO 1.55 K/mm3 (0.84-5.20); LYMPHOCYTES PERCENT AUTO 21 % (21-46); MONOCYTES ABSOLUTE AUTO 0.70 K/mm3 (0.16-1.47); MONOCYTES PERCENT AUTO 9 % (4-13); Mean Corpuscular HGB Conc 31.7 g/dL (31.5-36.5); Mean Corpuscular Volume 88 fL (80-100); NEUTROPHILS ABSOLUTE AUTO 5.08 K/mm3 (1.96-9.15); NEUTROPHILS PERCENT AUTO 68 % (41-73); NRBC ABSOLUTE 0.00 K/mm3 (0.00-0.02); NRBC Auto 0.0 /100 WBC (0.0-0.2); Platelet Count 299 K/mm3 (150-400); RDW Coefficient Variation 18.5 % (11.7-14.2); RDW Standard Deviation 58.6 fL (35.1-46.3)
[2025-02-03 07:05] LABS: Alanine Aminotransfer (ALT/SGP 19.0 U/L (12-78); Albumin, Blood 3.0 g/dL (3.4-5.0); Albumin/Globulin Ratio 1.0 (0.8-1.8); Anion Gap 8.0 mmol/L (3-11); Aspartate Aminotrans (AST/SGOT 20.0 U/L (12-37); Bilirubin, Total 0.3 mg/dL (0.1-1.0); Blood Urea Nitrogen 15.0 mg/dL (8-24); CO2, Blood 24.0 mmol/L (21-32); Calcium, Blood 10.7 mg/dL (8.5-10.1); Chloride, Blood 110.0 mmol/L (98-108); Creatinine, Blood 0.84 mg/dL (0.40-1.00); Globulin, Blood 3.1 g/dL (2.2-4.0); Glucose, Blood 98.0 mg/dL (70-99); Potassium, Blood 4.2 mmol/L (3.5-5.5); Sodium, Blood 138.0 mmol/L (136-145); Total Protein, Blood 6.1 g/dL (6.4-8.2)
[2025-02-03 07:49] VITALS: BP 177/106
[2025-02-03] MEDS ORDERED: Enoxaparin 40 MG/0.4 ML SYR SC SCH (09:00)
[2025-02-03] MEDS ORDERED: FAMO20 PO (12:15)
[2025-02-03] MEDS ORDERED: HYDHCL25 PO (12:15)
[2025-02-03] MEDS ORDERED: OMEP20ER PO (12:16)
[2025-02-03] MEDS ORDERED: LOSARTAN POTASS25 M2 PO (12:16)
[2025-02-03] MEDS ORDERED: THERA-D2000 UNIT PO (12:18)
[2025-02-03 14:55] VITALS: BP 141/92
[2025-02-03 16:24] VITALS: BP 158/95
--- NOTE | 2025-02-03 18:31 | NUR ---
NOTE PT RESTING QUIETLY. SHE ASSESSED HER MIGRAINE 2/. BP SLOWLY DECREASING WITH CONSISTENT ORAL MEDICATIONS. UP TO BATHROOM WITH SBA D/T HER RECENT HX OF FALLS. PHYSICAL THERAPY RELATED THE PT HAS 1.5" LEG LENGTH DISCREPENCY R/T TOTAL HIP REPLACMENT. PT HAS DECLINED OFFE ROF CANE/FWW FOR SAFETY. SHE HAS BEEN CALLING FOR SBA WHEN SHE WANTS UP. MOSTLY SHE IS RESTING. GOOD APPETITE. IV PATENT. RA. BED LOW LOCKED. REFUSED TO CHANGE OUT OF HER STREET CLOTHES. DECLINED SLIPPY SOCKS. CALL LIGHT WITH IN REACH.
[2025-02-03 20:07] VITALS: BP 154/120
[2025-02-03] MEDS ORDERED: Ondansetron HCl 2 MG / ML 2ML Vial IV PRN (21:35)
[2025-02-04 03:42] VITALS: BP 157/104
[2025-02-04 05:08] LABS: BASOPHILS ABSOLUTE AUTO 0.05 K/mm3 (0.00-0.23); BASOPHILS PERCENT AUTO 1 % (0-2); EOSINOPHILS ABSOLUTE AUTO 0.08 K/mm3 (0.00-0.68); EOSINOPHILS PERCENT AUTO 1 % (0-6); Hematocrit 35.8 % (33.0-51.0); Hemoglobin 11.1 g/dL (11.5-16.0); IMMATURE GRAN ABSOLUTE AUTO 0.02 K/mm3 (0.00-0.10); IMMATURE GRAN PERCENT AUTO 0 % (0-1); LYMPHOCYTES ABSOLUTE AUTO 1.49 K/mm3 (0.84-5.20); LYMPHOCYTES PERCENT AUTO 24 % (21-46); MONOCYTES ABSOLUTE AUTO 0.58 K/mm3 (0.16-1.47); MONOCYTES PERCENT AUTO 9 % (4-13); Mean Corpuscular HGB Conc 31.0 g/dL (31.5-36.5); Mean Corpuscular Volume 90 fL (80-100); NEUTROPHILS ABSOLUTE AUTO 3.98 K/mm3 (1.96-9.15); NEUTROPHILS PERCENT AUTO 64 % (41-73); NRBC ABSOLUTE 0.00 K/mm3 (0.00-0.02); NRBC Auto 0.0 /100 WBC (0.0-0.2); Platelet Count 290 K/mm3 (150-400); RDW Coefficient Variation 18.5 % (11.7-14.2); RDW Standard Deviation 60.7 fL (35.1-46.3)
--- NOTE | 2025-02-04 05:23 | NUR ---
PT C/O HEADACHE AND A ONE TIME DOSE OF IMITREX WAS GIVEN PER DR ORDER. RELIEVED H/A. NO OTHER COMPLAINTS. NO ACUTE EVENTS. PATIENT AMBULATED TO BATHROOM WHEN NEEDED WITH A SBA. NO MEDICATIONS WERE GIVEN FOR BLOOD PRESSURE MANAGEMENT, CONTINUE MONITORING. BED IN LOW POSITION, CALL WORKMAN AND PERSONAL BELONGINGS WITHIN REACH.
[2025-02-04 05:30] LABS: Anion Gap 5.0 mmol/L (3-11); Blood Urea Nitrogen 17.0 mg/dL (8-24); CO2, Blood 28.0 mmol/L (21-32); Calcium, Blood 10.9 mg/dL (8.5-10.1); Chloride, Blood 109.0 mmol/L (98-108); Creatinine, Blood 1.03 mg/dL (0.40-1.00); Glucose, Blood 96.0 mg/dL (70-99); Potassium, Blood 4.5 mmol/L (3.5-5.5); Sodium, Blood 137.0 mmol/L (136-145)
[2025-02-04 08:42] VITALS: BP 151/95
[2025-02-04] MEDS ORDERED: CARV25 PO (14:57)
[2025-02-04] MEDS ORDERED: NALOXONE H0.4 MG/1 M IM (14:57)
[2025-02-04] MEDS ORDERED: OXAYDO5 M1 PO (14:58)
--- NOTE | 2025-02-04 15:17 | NUR ---
DISCHARGE NOTE PT D/C HOME AT 1515. PT PROVIDED W/ VERBAL AND WRITTEN INSTRUCTIONS AND REPORTED UNDERSTANDING. PT A&OX4, VSS, AMB W/ ASSIST, TOLERATING PO, VOIDING, AND PAIN MANAGED PER EMAR. BELONGINGS WERE RETURNED. FOOD DELIVERED TO ROOM FROM LACTATION SPECIALIST. HARD SCRIPT GIVEN TO PT. PT ESCOURTED OUT VIA W/C BY KAYY GALINDO.
== END 2025-02-04 15:38 | disposition home health service (06) ==
LOC: ER 17:14 → MEDS 17:15 → ENPENDDIS 02-04 11:29 → MEDS 02-04 15:38
PROVIDERS: Physician Assistant; Student in an Organized Health Care Education/Training Program; ADMIT Internal Medicine
DX: R07.89 Other chest pain (principal); I16.0 Hypertensive urgency; I10 Essential (primary) hypertension; I42.1 Obstructive hypertrophic cardiomyopathy; I25.10 Atherosclerotic heart disease of native coronary artery without angina pectoris; I25.2 Old myocardial infarction; G89.29 Other chronic pain; M54.50 Low back pain, unspecified; M79.7 Fibromyalgia; F41.9 Anxiety disorder, unspecified; R79.89 Other specified abnormal findings of blood chemistry; E78.5 Hyperlipidemia, unspecified; M32.9 Systemic lupus erythematosus, unspecified; Z87.891 Personal history of nicotine dependence; Z79.83 Long term (current) use of bisphosphonates; Z79.82 Long term (current) use of aspirin; Z79.899 Other long term (current) drug therapy; Z88.0 Allergy status to penicillin; Z88.1 Allergy status to other antibiotic agents; Z88.8 Allergy status to other drugs, medicaments and biological substances; Z91.030 Bee allergy status; Z91.038 Other insect allergy status; Z90.49 Acquired absence of other specified parts of digestive tract; Z90.710 Acquired absence of both cervix and uterus
CPT/HCPCS: 71046; 72100; 73502; 80048; 80053; 84484; 85025; 93306; 94760; 94762; 96372; 96374; 96375; 96376; 97116; 97162; 97530; 99285-25; A9270; C1751; G0378; J0360; J1650; J2270; J2405; J3010

== ENCOUNTER 2025-04-12 11:11 | Emergency (ER) | payer OTHER ==
[~2025-04-12] VITALS: Ht 157.5 cm; Wt 72.6 kg
[~2025-04-12 11:11] MED LIST changes: +LOSARTAN POTASS25 M2 PO; +NALOXONE H0.4 MG/1 M IM; +THERA-D2000 UNIT PO
[2025-04-12] MEDS ORDERED: Ketorolac Tromethamine 30mg Vial IV ONE (11:55)
[2025-04-12] MEDS ORDERED: DiphenhydrAMINE HCl 50 MG/ML 1ML Vial IV ONE (11:55)
[2025-04-12 11:57] LABS: BASOPHILS ABSOLUTE AUTO 0.07 K/mm3 (0.00-0.23); BASOPHILS PERCENT AUTO 1 % (0-2); EOSINOPHILS ABSOLUTE AUTO 0.26 K/mm3 (0.00-0.68); EOSINOPHILS PERCENT AUTO 5 % (0-6); Hematocrit 37.9 % (33.0-51.0); Hemoglobin 11.7 g/dL (11.5-16.0); IMMATURE GRAN ABSOLUTE AUTO 0.02 K/mm3 (0.00-0.10); IMMATURE GRAN PERCENT AUTO 0 % (0-1); LYMPHOCYTES ABSOLUTE AUTO 1.37 K/mm3 (0.84-5.20); LYMPHOCYTES PERCENT AUTO 25 % (21-46); MONOCYTES ABSOLUTE AUTO 0.55 K/mm3 (0.16-1.47); MONOCYTES PERCENT AUTO 10 % (4-13); Mean Corpuscular HGB Conc 30.9 g/dL (31.5-36.5); Mean Corpuscular Volume 93 fL (80-100); NEUTROPHILS ABSOLUTE AUTO 3.30 K/mm3 (1.96-9.15); NEUTROPHILS PERCENT AUTO 59 % (41-73); NRBC ABSOLUTE 0.00 K/mm3 (0.00-0.02); NRBC Auto 0.0 /100 WBC (0.0-0.2); Platelet Count 304 K/mm3 (150-400); RDW Coefficient Variation 16.2 % (11.7-14.2); RDW Standard Deviation 55.4 fL (35.1-46.3)
[2025-04-12 12:49] LABS: Alanine Aminotransfer (ALT/SGP 22.0 U/L (12-78); Albumin, Blood 3.2 g/dL (3.4-5.0); Albumin/Globulin Ratio 0.8 (0.8-1.8); Anion Gap 4.0 mmol/L (3-11); Aspartate Aminotrans (AST/SGOT 24.0 U/L (12-37); Bilirubin, Total 0.3 mg/dL (0.1-1.0); Blood Urea Nitrogen 24.0 mg/dL (8-24); CO2, Blood 28.0 mmol/L (21-32); Calcium, Blood 10.9 mg/dL (8.5-10.1); Chloride, Blood 113.0 mmol/L (98-108); Creatinine, Blood 0.71 mg/dL (0.40-1.00); Globulin, Blood 4.0 g/dL (2.2-4.0); Glucose, Blood 84.0 mg/dL (70-99); Potassium, Blood 4.2 mmol/L (3.5-5.5); Sodium, Blood 141.0 mmol/L (136-145); Total Protein, Blood 7.2 g/dL (6.4-8.2)
[2025-04-12] MEDS ORDERED: HYDROCODONE-AC1 EA10 PO (13:48)
[2025-04-12] MEDS ORDERED: PROC5 PO (13:48)
[2025-04-12 14:00] VITALS: BP 184/109
== END 2025-04-12 14:15 | disposition home or self-care (01) ==
LOC: ER 11:11
PROVIDERS: Emergency Medicine
DX: R51.9 Headache, unspecified (principal); E11.9 Type 2 diabetes mellitus without complications; I10 Essential (primary) hypertension; E78.5 Hyperlipidemia, unspecified; M32.9 Systemic lupus erythematosus, unspecified; I25.10 Atherosclerotic heart disease of native coronary artery without angina pectoris; I25.2 Old myocardial infarction; Z87.891 Personal history of nicotine dependence; Z91.030 Bee allergy status; Z88.8 Allergy status to other drugs, medicaments and biological substances; Z88.0 Allergy status to penicillin; Z88.1 Allergy status to other antibiotic agents; Z79.82 Long term (current) use of aspirin; Z79.83 Long term (current) use of bisphosphonates; Z79.899 Other long term (current) drug therapy
CPT/HCPCS: 70450; 80053; 84484; 85025; 93005; 93010; 96374; 96375; 99284-25; J1200; J1790; J1885